=== PATIENT | male | born 1935 | race Hispanic/Latino ===

== ENCOUNTER → 2016-02-26 | Outpatient (REF) | payer OTHER ==
[2016-02-26 09:52] LABS: ALBUMIN 3.4 GM/DL (3.2-5.2); ALBUMIN/GLOBULIN RATIO 1.26 (1.00-1.93); BILIRUBIN,TOTAL 0.4 MG/DL (0.2-1.0); CALCIUM LEVEL 8.7 MG/DL (8.8-10.2); CREATININE FOR GFR 1.27 MG/DL (0.70-1.30); GLOMERULAR FILTRATION RATE 58.4 (>42); TOTAL PROTEIN 6.1 GM/DL (6.4-8.2)
== END ==
LOC: M SFHCPLAZ 08:11
PROVIDERS: ATTEND Physician Assistant Medical
DX: N18.3 Chronic kidney disease, stage 3 (moderate) (principal); R73.01 Impaired fasting glucose; R97.20 Elevated prostate specific antigen [PSA]
CPT/HCPCS: 36415; 80053; 82306; 83036; 83970; G0103; G0463

== ENCOUNTER → 2016-06-30 | Outpatient (REF) | payer OTHER | LOC: M SFHCPLAZ 16:37 | PROVIDERS: ATTEND Family Medicine | DX: N18.3 Chronic kidney disease, stage 3 (moderate) (principal); R73.01 Impaired fasting glucose; Z53.9 Procedure and treatment not carried out, unspecified reason ==

== ENCOUNTER → 2016-07-01 | Outpatient (CLI) | payer OTHER ==
[2016-07-01 09:17] LABS: BASO % 0.6 % (0.0-1.0); EOS # 0.3 K/mm3 (0.0-0.50); EOS % 5.2 % (0.0-3.0); LARGE UNSTAINED CELL # 0.1 K/mm3 (0.0-0.4); LARGE UNSTAINED CELL % 2.7 % (0.0-4.0); LYMPH # 1.5 K/mm3 (1.5-4.5); LYMPH % 29.6 % (24.0-44.0); MEAN CORPUSCULAR HEMOGLOBIN 28.8 pg (27.0-33.0); MEAN CORPUSCULAR HGB CONC 33.1 g/dl (32.0-36.5); MEAN CORPUSCULAR VOLUME 86.9 fl (80.0-96.0); MONO # 0.4 K/mm3 (0.0-0.8); MONO % 7.2 % (0.0-5.0); NEUTROPHILS # 2.7 K/mm3 (1.8-7.7); NEUTROPHILS % 54.6 % (36.0-66.0); PLATELET COUNT, AUTOMATED 159 k/mm3 (150-450); RED CELL DISTRIBUTION WIDTH 13.4 % (11.5-14.5); WHITE BLOOD COUNT 4.9 K/mm3 (4.0-10.0)
[2016-07-01 09:57] LABS: ALBUMIN 3.6 GM/DL (3.2-5.2); ALBUMIN/GLOBULIN RATIO 1.33 (1.00-1.93); BILIRUBIN,TOTAL 0.6 MG/DL (0.2-1.0); CALCIUM LEVEL 8.6 MG/DL (8.8-10.2); CREATININE FOR GFR 1.24 MG/DL (0.70-1.30); GLOMERULAR FILTRATION RATE 59.9 (>42); PERCENT SATURATION 29.8 % (19.7-37.4); POTASSIUM SERUM 4.3 MEQ/L (3.5-5.1); TOTAL PROTEIN 6.3 GM/DL (6.4-8.2)
== END ==
LOC: M WUC 08:08
PROVIDERS: ATTEND Family Medicine
DX: N18.3 Chronic kidney disease, stage 3 (moderate) (principal); R73.01 Impaired fasting glucose

== ENCOUNTER → 2016-12-03 | Outpatient (REF) | payer OTHER ==
[2016-12-03 15:48] LABS: BASO % 0.7 % (0.0-1.0); EOS # 0.2 10^3/uL (0.0-0.50); EOS % 3.8 % (0.0-3.0); IMMATURE GRANULOCYTE % 0.3 % (0-0); LYMPH # 1.6 10^3/uL (1.5-4.5); LYMPH % 27.4 % (24.0-44.0); MEAN CORPUSCULAR HEMOGLOBIN 28.7 pg (27.0-33.0); MEAN CORPUSCULAR HGB CONC 33.2 g/dl (32.0-36.5); MEAN CORPUSCULAR VOLUME 86.5 fl (80.0-96.0); MONO # 0.6 10^3/uL (0.0-0.8); MONO % 9.2 % (0.0-5.0); NEUTROPHILS # 3.5 10^3/uL (1.8-7.7); NEUTROPHILS % 58.6 % (36.0-66.0); PLATELET COUNT, AUTOMATED 187 10^3/uL (150-450); RED CELL DISTRIBUTION WIDTH 13.9 % (11.5-14.5)
[2016-12-03 15:54] LABS: ALBUMIN 3.7 GM/DL (3.2-5.2); ALBUMIN/GLOBULIN RATIO 1.54 (1.00-1.93); ALKALINE PHOSPHATASE 47 U/L (45-117); ALT/SGPT 16 U/L (12-78); ANION GAP 7 MEQ/L (8-16); AST/SGOT 9 U/L (15-37); BILIRUBIN,TOTAL 0.4 MG/DL (0.2-1.0); BLOOD UREA NITROGEN 15 MG/DL (7-18); CALCIUM LEVEL 9.1 MG/DL (8.8-10.2); CARBON DIOXIDE LEVEL 30 MEQ/L (21-32); CHLORIDE LEVEL 105 MEQ/L (98-107); CREATININE FOR GFR 1.23 MG/DL (0.70-1.30); GLOMERULAR FILTRATION RATE > 60.0 (>42); GLUCOSE, FASTING 91 MG/DL (83-110); SODIUM LEVEL 142 MEQ/L (136-145); TOTAL PROTEIN 6.1 GM/DL (6.4-8.2)
== END ==
LOC: M SFHCPLAZ 14:37
PROVIDERS: ATTEND Family Medicine
DX: N18.3 Chronic kidney disease, stage 3 (moderate) (principal); R73.01 Impaired fasting glucose; R97.20 Elevated prostate specific antigen [PSA]
CPT/HCPCS: 36415; 80053; 81001; 82043; 83036; 85025; G0103

== ENCOUNTER → 2017-05-13 | Outpatient (REF) | payer OTHER ==
[2017-05-13 15:45] LABS: BASO % 0.6 % (0.0-1.0); EOS # 0.3 10^3/uL (0.0-0.50); HEMATOCRIT 40.9 % (42.0-52.0); HEMOGLOBIN 13.2 g/dl (13.5-17.5); IMMATURE GRANULOCYTE % 0.5 % (0-3.0); LYMPH # 1.7 10^3/uL (1.5-4.5); LYMPH % 26.7 % (24.0-44.0); MEAN CORPUSCULAR HEMOGLOBIN 28.1 pg (27.0-33.0); MEAN CORPUSCULAR HGB CONC 32.3 g/dl (32.0-36.5); MONO # 0.7 10^3/uL (0.0-0.8); MONO % 10.5 % (0.0-5.0); NEUTROPHILS # 3.7 10^3/uL (1.8-7.7); NEUTROPHILS % 57.7 % (36.0-66.0); PLATELET COUNT, AUTOMATED 203 10^3/uL (150-450); RETICULOCYTE # 47.9 10^9/L (17-77); WHITE BLOOD COUNT 6.5 10^3/uL (4.0-10.0)
[2017-05-13 15:46] LABS: HEMATOCRIT 40.9 % (42.0-52.0)
[2017-05-13 16:14] LABS: VITAMIN B12 LEVEL 480 PG/ML (247-911)
[2017-05-13 16:17] LABS: ALBUMIN 3.7 GM/DL (3.2-5.2); ALBUMIN/GLOBULIN RATIO 1.37 (1.00-1.93); ALKALINE PHOSPHATASE 55 U/L (45-117); ALT/SGPT 15 U/L (12-78); ANION GAP 7 MEQ/L (8-16); AST/SGOT 13 U/L (7-37); BILIRUBIN,TOTAL 0.4 MG/DL (0.2-1.0); BLOOD UREA NITROGEN 20 MG/DL (7-18); CALCIUM LEVEL 8.8 MG/DL (8.8-10.2); CARBON DIOXIDE LEVEL 30 MEQ/L (21-32); CHLORIDE LEVEL 105 MEQ/L (98-107); CREATININE FOR GFR 1.23 MG/DL (0.70-1.30); FERRITIN 124 NG/ML (26-388); FREE T4 1.01 NG/DL (0.76-1.46); GLOMERULAR FILTRATION RATE > 60.0 (>42); GLUCOSE, FASTING 89 MG/DL (70-100); MAGNESIUM LEVEL 2.2 MG/DL (1.8-2.4); SODIUM LEVEL 142 MEQ/L (136-145); THYROID STIMULATING HORMONE 0.699 uIU/ML (0.358-3.740); TOTAL PROTEIN 6.4 GM/DL (6.4-8.2)
[2017-05-14 13:38] LABS: RBC FOLATE 462.1 NG/ML (280-791)
[2017-05-17 14:24] LABS: ALBUMIN 3.97 GM/DL (3.29-5.55); ALBUMIN % 62.1 % (55.8-66.1); ALPHA-1-GLOBULIN % 4.3 % (2.9-4.9); ALPHA-1-GLOBULINS 0.28 GM/DL (0.17-0.41); ALPHA-2-GLOBULINS 0.74 GM/DL (0.42-0.99); ALPHA-2-GLOBULINS % 11.6 % (7.1-11.8); BETA-1-GLOBULINS 0.36 GM/DL (0.28-0.60); BETA-1-GLOBULINS % 5.7 % (4.7-7.2); BETA-2-GLOBULINS % 4.7 % (3.2-6.5); GAMMA GLOBULIN % 11.6 % (11.1-18.8); GAMMA GLOBULINS 0.74 GM/DL (0.65-1.58)
== END ==
LOC: M SFHCPLAZ 11:22
DX: E53.8 Deficiency of other specified B group vitamins (principal); I12.9 Hypertensive chronic kidney disease with stage 1 through stage 4 chronic kidney disease, or unspecified chronic kidney disease; N18.3 Chronic kidney disease, stage 3 (moderate)
CPT/HCPCS: 83735

== ENCOUNTER → 2017-07-02 | Outpatient (CLI) | payer OTHER | LOC: M RAD 14:50 | DX: M19.072 Primary osteoarthritis, left ankle and foot (principal); M85.672 Other cyst of bone, left ankle and foot; M25.772 Osteophyte, left ankle; S92.354D Nondisplaced fracture of fifth metatarsal bone, right foot, subsequent encounter for fracture with routine healing; M79.672 Pain in left foot | CPT/HCPCS: 73630 ==

== ENCOUNTER → 2017-07-26 | Outpatient (CLI) | payer OTHER | LOC: M RAD 11:10 | DX: M79.671 Pain in right foot (principal) | CPT/HCPCS: 73630 ==

== ENCOUNTER → 2017-09-16 | Outpatient (REF) | payer OTHER ==
[2017-09-16 13:50] LABS: BASO % 0.6 % (0.0-1.0); EOS # 0.2 10^3/uL (0.0-0.50); EOS % 2.7 % (0.0-3.0); HEMATOCRIT 41.6 % (42.0-52.0); HEMOGLOBIN 13.7 g/dl (13.5-17.5); IMMATURE GRANULOCYTE % 0.1 % (0-3.0); LYMPH # 1.8 10^3/uL (1.5-4.5); LYMPH % 25.8 % (24.0-44.0); MEAN CORPUSCULAR HEMOGLOBIN 28.2 pg (27.0-33.0); MEAN CORPUSCULAR HGB CONC 32.9 g/dl (32.0-36.5); MEAN CORPUSCULAR VOLUME 85.8 fl (80.0-96.0); MONO # 0.7 10^3/uL (0.0-0.8); MONO % 9.6 % (0.0-5.0); NEUTROPHILS # 4.3 10^3/uL (1.8-7.7); NEUTROPHILS % 61.2 % (36.0-66.0); PLATELET COUNT, AUTOMATED 224 10^3/uL (150-450); RED BLOOD COUNT 4.85 10^6/uL (4.30-6.10); RED CELL DISTRIBUTION WIDTH 13.7 % (11.5-14.5); WHITE BLOOD COUNT 7.1 10^3/uL (4.0-10.0)
[2017-09-16 14:45] LABS: ERYTHROCYTE SEDIMENTATION RATE 7 mm/hr (0-20)
[2017-09-16 14:50] LABS: ALBUMIN 3.8 GM/DL (3.2-5.2); ALBUMIN/GLOBULIN RATIO 1.27 (1.00-1.93); ALKALINE PHOSPHATASE 52 U/L (45-117); ALT/SGPT 18 U/L (12-78); ANION GAP 9 MEQ/L (8-16); AST/SGOT 15 U/L (7-37); BILIRUBIN,TOTAL 0.6 MG/DL (0.2-1.0); BLOOD UREA NITROGEN 18 MG/DL (7-18); C REACTIVE PROTEIN QUANTITATIV < 0.30 MG/DL (0.00-0.30); CALCIUM LEVEL 8.9 MG/DL (8.8-10.2); CARBON DIOXIDE LEVEL 29 MEQ/L (21-32); CHLORIDE LEVEL 104 MEQ/L (98-107); CHOLESTEROL LEVEL 166 MG/DL (<200); CHOLESTEROL RISK RATIO 3.531 (<5); GLOMERULAR FILTRATION RATE 56.5 (>35); GLUCOSE, FASTING 87 MG/DL (70-100); HDL CHOLESTEROL 47 MG/DL (>40); NON-HDL-C 119 MG/DL; POTASSIUM SERUM 3.9 MEQ/L (3.5-5.1); SODIUM LEVEL 142 MEQ/L (136-145); TOTAL PROTEIN 6.8 GM/DL (6.4-8.2); TRIGLYCERIDES LEVEL 115 MG/DL (<150)
[2017-09-16 15:36] LABS: ESTIMATED AVERAGE GLUCOSE 126 MG/DL (60-110)
[2017-09-18 00:06] LABS: INSULIN LEVEL 6.9 uIU/mL (2.6-24.9); PSA FREE 1.15 ng/mL; PSA TOTAL 4.1 ng/mL (0.0-4.0)
== END ==
LOC: M SFHCPLAZ 11:14
DX: R97.20 Elevated prostate specific antigen [PSA] (principal); R73.01 Impaired fasting glucose; N18.3 Chronic kidney disease, stage 3 (moderate); M21.372 Foot drop, left foot; E78.2 Mixed hyperlipidemia
CPT/HCPCS: 83525

== ENCOUNTER → 2017-09-18 | Outpatient (CLI) | payer OTHER | LOC: M RAD 12:33 | DX: M21.372 Foot drop, left foot (principal); M51.26 Other intervertebral disc displacement, lumbar region; M51.27 Other intervertebral disc displacement, lumbosacral region | CPT/HCPCS: 72148 ==

== ENCOUNTER → 2017-10-25 | Outpatient (CLI) | payer OTHER | LOC: M RAD 07:49 | DX: I63.9 Cerebral infarction, unspecified (principal) | CPT/HCPCS: 70551 ==

== ENCOUNTER 2017-11-26 09:51 | Inpatient (IN) | payer OTHER ==
[2017-11-26] MEDS: NS 1,000 ML IV ×3 (10:38→18:42)
[2017-11-26 10:42] LABS: BASO % 0.3 % (0.0-1.0); EOS # 0.1 10^3/uL (0.0-0.50); EOS % 0.8 % (0.0-3.0); HEMATOCRIT 41.7 % (42.0-52.0); HEMOGLOBIN 13.5 g/dl (13.5-17.5); IMMATURE GRANULOCYTE % 0.4 % (0-3.0); LYMPH # 1.1 10^3/uL (1.5-4.5); LYMPH % 9.7 % (24.0-44.0); MEAN CORPUSCULAR HEMOGLOBIN 28.2 pg (27.0-33.0); MEAN CORPUSCULAR HGB CONC 32.4 g/dl (32.0-36.5); MEAN CORPUSCULAR VOLUME 87.2 fl (80.0-96.0); MONO # 1.1 10^3/uL (0.0-0.8); MONO % 9.8 % (0.0-5.0); NEUTROPHILS # 8.7 10^3/uL (1.8-7.7); PLATELET COUNT, AUTOMATED 216 10^3/uL (150-450); RED BLOOD COUNT 4.78 10^6/uL (4.30-6.10); RED CELL DISTRIBUTION WIDTH 13.5 % (11.5-14.5)
[2017-11-26 11:09] LABS: LACTIC ACID SEPSIS PROTOCOL 0.8 MMOL/L (0.4-2.0)
[2017-11-26 11:16] LABS: ALBUMIN 3.5 GM/DL (3.2-5.2); ALKALINE PHOSPHATASE 73 U/L (45-117); ALT/SGPT 22 U/L (12-78); ANION GAP 10 MEQ/L (8-16); AST/SGOT 17 U/L (7-37); BILIRUBIN,DIRECT 0.2 MG/DL (0.0-0.2); BILIRUBIN,TOTAL 0.7 MG/DL (0.2-1.0); BLOOD UREA NITROGEN 15 MG/DL (7-18); C REACTIVE PROTEIN QUANTITATIV 6.36 MG/DL (0.00-0.30); CALCIUM LEVEL 8.7 MG/DL (8.8-10.2); CARBON DIOXIDE LEVEL 26 MEQ/L (21-32); CHLORIDE LEVEL 104 MEQ/L (98-107); CREATININE FOR GFR 1.24 MG/DL (0.70-1.30); GLOMERULAR FILTRATION RATE 59.7 (>35); GLUCOSE, FASTING 108 MG/DL (70-100); LIPASE 90 U/L (73-393); POTASSIUM SERUM 3.7 MEQ/L (3.5-5.1); SODIUM LEVEL 140 MEQ/L (136-145); THYROID STIMULATING HORMONE 0.314 uIU/ML (0.358-3.740)
[2017-11-26 11:19] LABS: ERYTHROCYTE SEDIMENTATION RATE 18 mm/hr (0-20)
[2017-11-26] MEDS ORDERED: ISOVUE-370 76% 100ML VIAL (Q9967) As Ordered (11:29)
[2017-11-26] MEDS: LABETALOL HCL 100 MG/20 ML VIAL IV (12:20)
[2017-11-26] MEDS ORDERED: ONDANSETRON 4MG/2ML VIAL (J2405) IV (16:45)
[2017-11-26 16:54] LABS: FREE T4 1.28 NG/DL (0.76-1.46)
[2017-11-26 18:04] LABS: CPK CREATINE PHOSPHOKINASE 119 U/L (39-308); MB/CK RELATIVE INDEX 2.02 (< OR =4); TROPONIN I < 0.02 NG/ML (< 0.10)
[2017-11-26] MEDS: ACETAMINOPHEN 650 MG SUPP PR (19:43)
[2017-11-26] MEDS: PANTOPRAZOLE 40MG INJ (PROTONIX) (C9113) IV (21:29)
[2017-11-26] MEDS: HEPARIN SOD (PORCINE) 5000 UNITS/ML VIAL SC (21:29)
[2017-11-27] MEDS ORDERED: SLF 3 ML SYR IV (00:15)
[2017-11-27 01:32] LABS: CPK CREATINE PHOSPHOKINASE 133 U/L (39-308); TROPONIN I < 0.02 NG/ML (< 0.10)
[2017-11-27] MEDS: SLF 3 ML SYR IV ×3 (05:36→21:19)
[2017-11-27] MEDS: HEPARIN SOD (PORCINE) 5000 UNITS/ML VIAL SC ×3 (05:37→20:46)
[2017-11-27 08:12] LABS: HEMATOCRIT 38.9 % (42.0-52.0); HEMOGLOBIN 12.6 g/dl (13.5-17.5); MEAN CORPUSCULAR HEMOGLOBIN 28.6 pg (27.0-33.0); MEAN CORPUSCULAR HGB CONC 32.4 g/dl (32.0-36.5); MEAN CORPUSCULAR VOLUME 88.2 fl (80.0-96.0); PLATELET COUNT, AUTOMATED 206 10^3/uL (150-450); RED BLOOD COUNT 4.41 10^6/uL (4.30-6.10); RED CELL DISTRIBUTION WIDTH 13.7 % (11.5-14.5); WHITE BLOOD COUNT 11.5 10^3/uL (4.0-10.0)
[2017-11-27] MEDS: ASPIRIN 300 MG SUPP PR (08:37)
[2017-11-27 08:40] LABS: CPK CREATINE PHOSPHOKINASE 178 U/L (39-308); TROPONIN I < 0.02 NG/ML (< 0.10)
[2017-11-27 08:45] LABS: ANION GAP 8 MEQ/L (8-16); BLOOD UREA NITROGEN 15 MG/DL (7-18); CALCIUM LEVEL 8.9 MG/DL (8.8-10.2); CARBON DIOXIDE LEVEL 27 MEQ/L (21-32); CHLORIDE LEVEL 108 MEQ/L (98-107); CREATININE FOR GFR 1.02 MG/DL (0.70-1.30); FREE THYROXINE INDEX 2.7 % (1.4-3.8); GLOMERULAR FILTRATION RATE > 60.0 (>35); GLUCOSE, FASTING 94 MG/DL (70-100); POTASSIUM SERUM 4.1 MEQ/L (3.5-5.1); SODIUM LEVEL 143 MEQ/L (136-145); T UPTAKE 33 % (33-40); THYROID STIMULATING HORMONE 0.259 uIU/ML (0.358-3.740); THYROXINE (T4) 8.2 UG/DL (4.5-12.0)
[2017-11-27] MEDS: D5W/0.45% SODIUM CHLORIDE 1,000 ML IV (13:03)
[2017-11-27] MEDS: KCL 20MEQ IN D5/0.45NS 1000ML 1,000 ML IV ×2 (13:16→21:45)
[2017-11-27 15:10] LABS: APPEARANCE, URINE HAZY (CLEAR); BACTERIA, URINE AUTO NEGATIVE (NEGATIVE); BILIRUBIN, URINE AUTO NEGATIVE (NEGATIVE); BLOOD, URINE BLOOD 1+ (NEGATIVE); COLOR, URINE YELLOW (YELLOW); GLUCOSE, URINE (UA) AUTO NEGATIVE (NEGATIVE); KETONE, URINE AUTO 1+ mg/dL (NEGATIVE); LEUKOCYTE ESTERASE, URINE AUTO NEGATIVE (NEGATIVE); MUCUS, URINE LARGE (NEGATIVE); NITRITE, URINE AUTO NEGATIVE (NEGATIVE); PROTEIN, URINE AUTO 1+ mg/dL (NEGATIVE); RBC, URINE AUTO 7 /HPF (0-3); SPECIFIC GRAVITY URINE AUTO 1.028 (1.002-1.035); SQUAMOUS EPITHELIAL CELL UR AU 0 /HPF (0-6); WBC, URINE AUTO 2 /HPF (0-3)
[2017-11-27] MEDS: PANTOPRAZOLE 40MG INJ (PROTONIX) (C9113) IV (20:46)
[2017-11-28 04:56] LABS: HEMATOCRIT 37.6 % (42.0-52.0); HEMOGLOBIN 12.2 g/dl (13.5-17.5); MEAN CORPUSCULAR HEMOGLOBIN 28.1 pg (27.0-33.0); MEAN CORPUSCULAR HGB CONC 32.4 g/dl (32.0-36.5); MEAN CORPUSCULAR VOLUME 86.6 fl (80.0-96.0); PLATELET COUNT, AUTOMATED 208 10^3/uL (150-450); RED BLOOD COUNT 4.34 10^6/uL (4.30-6.10); RED CELL DISTRIBUTION WIDTH 13.5 % (11.5-14.5); WHITE BLOOD COUNT 9.7 10^3/uL (4.0-10.0)
[2017-11-28] MEDS: SLF 3 ML SYR IV ×3 (05:09→21:06)
[2017-11-28] MEDS: HEPARIN SOD (PORCINE) 5000 UNITS/ML VIAL SC ×3 (05:18→20:03)
[2017-11-28 05:20] LABS: ANION GAP 6 MEQ/L (8-16); BLOOD UREA NITROGEN 14 MG/DL (7-18); CALCIUM LEVEL 8.4 MG/DL (8.8-10.2); CARBON DIOXIDE LEVEL 29 MEQ/L (21-32); CHLORIDE LEVEL 107 MEQ/L (98-107); CREATININE FOR GFR 0.96 MG/DL (0.70-1.30); GLOMERULAR FILTRATION RATE > 60.0 (>35); GLUCOSE, FASTING 127 MG/DL (70-100); POTASSIUM SERUM 4.3 MEQ/L (3.5-5.1); SODIUM LEVEL 142 MEQ/L (136-145)
[2017-11-28] MEDS: KCL 20MEQ IN D5/0.45NS 1000ML 1,000 ML IV ×2 (06:02→14:29)
[2017-11-28] MEDS: ASPIRIN 300 MG SUPP PR (08:30)
[2017-11-28] MEDS: PYRIDOSTIGMINE INJ 10 MG/2 ML AMP IM ×3 (12:45→23:51)
[2017-11-28] MEDS: methylPREDNISolone INJ 125 MG/2 ML VIAL (J2930) IV (14:28)
[2017-11-28] MEDS: PANTOPRAZOLE 40MG INJ (PROTONIX) (C9113) IV (20:02)
[2017-11-29 04:49] LABS: HEMATOCRIT 38.9 % (42.0-52.0); HEMOGLOBIN 12.7 g/dl (13.5-17.5); MEAN CORPUSCULAR HGB CONC 32.6 g/dl (32.0-36.5); MEAN CORPUSCULAR VOLUME 85.7 fl (80.0-96.0); PLATELET COUNT, AUTOMATED 265 10^3/uL (150-450); RED BLOOD COUNT 4.54 10^6/uL (4.30-6.10); RED CELL DISTRIBUTION WIDTH 13.1 % (11.5-14.5); WHITE BLOOD COUNT 8.1 10^3/uL (4.0-10.0)
[2017-11-29] MEDS: SLF 3 ML SYR IV ×3 (05:04→21:15)
[2017-11-29 05:15] LABS: ANION GAP 6 MEQ/L (8-16); BLOOD UREA NITROGEN 16 MG/DL (7-18); CARBON DIOXIDE LEVEL 27 MEQ/L (21-32); CHLORIDE LEVEL 105 MEQ/L (98-107); CREATININE FOR GFR 0.99 MG/DL (0.70-1.30); GLOMERULAR FILTRATION RATE > 60.0 (>35); GLUCOSE, FASTING 134 MG/DL (70-100); POTASSIUM SERUM 4.2 MEQ/L (3.5-5.1); SODIUM LEVEL 138 MEQ/L (136-145)
[2017-11-29] MEDS: HEPARIN SOD (PORCINE) 5000 UNITS/ML VIAL SC ×3 (05:33→21:15)
[2017-11-29] MEDS: PYRIDOSTIGMINE INJ 10 MG/2 ML AMP IM ×4 (05:33→23:54)
[2017-11-29] MEDS: KCL 20MEQ IN D5/0.45NS 1000ML 1,000 ML IV ×2 (05:34→21:34)
[2017-11-29] MEDS: ASPIRIN 300 MG SUPP PR (09:26)
[2017-11-29] MEDS: methylPREDNISolone INJ 125 MG/2 ML VIAL (J2930) IV (09:26)
[2017-11-29] MEDS ORDERED: E-Z-PAQUE 96% w/w SUSP 176GM BTL As Ordered (15:29)
[2017-11-29] MEDS ORDERED: E-Z-HD 98% w/w 340GM SUSP BTL As Ordered (15:30)
[2017-11-29] MEDS ORDERED: E-Z-GAS II EFFERVESCENT PACKET (SODIUM BICARB./CITRIC ACID/SIMETHICONE) As Ordered (15:30)
[2017-11-29] MEDS: PANTOPRAZOLE 40MG INJ (PROTONIX) (C9113) IV (19:40)
[2017-11-29] MEDS: chlorproMAZINE 25 MG TAB (Q0161) PO (19:40)
[2017-11-30] MEDS: SLF 3 ML SYR IV ×3 (05:39→22:55)
[2017-11-30] MEDS: PYRIDOSTIGMINE INJ 10 MG/2 ML AMP IM (05:52)
[2017-11-30] MEDS: HEPARIN SOD (PORCINE) 5000 UNITS/ML VIAL SC ×3 (05:52→22:55)
[2017-11-30 06:02] LABS: HEMATOCRIT 40.2 % (42.0-52.0); HEMOGLOBIN 13.2 g/dl (13.5-17.5); MEAN CORPUSCULAR HEMOGLOBIN 28.4 pg (27.0-33.0); MEAN CORPUSCULAR HGB CONC 32.8 g/dl (32.0-36.5); MEAN CORPUSCULAR VOLUME 86.6 fl (80.0-96.0); PLATELET COUNT, AUTOMATED 269 10^3/uL (150-450); RED BLOOD COUNT 4.64 10^6/uL (4.30-6.10); WHITE BLOOD COUNT 10.3 10^3/uL (4.0-10.0)
[2017-11-30 06:22] LABS: ANION GAP 4 MEQ/L (8-16); BLOOD UREA NITROGEN 18 MG/DL (7-18); CALCIUM LEVEL 9.3 MG/DL (8.8-10.2); CARBON DIOXIDE LEVEL 31 MEQ/L (21-32); CHLORIDE LEVEL 105 MEQ/L (98-107); CREATININE FOR GFR 0.97 MG/DL (0.70-1.30); GLOMERULAR FILTRATION RATE > 60.0 (>35); GLUCOSE, FASTING 101 MG/DL (70-100); POTASSIUM SERUM 3.9 MEQ/L (3.5-5.1); SODIUM LEVEL 140 MEQ/L (136-145)
[2017-11-30] MEDS: KCL 20MEQ IN D5/0.45NS 1000ML 1,000 ML IV (07:23)
[2017-11-30] MEDS: methylPREDNISolone INJ 125 MG/2 ML VIAL (J2930) IV (08:30)
[2017-11-30] MEDS: ASPIRIN 300 MG SUPP PR (08:30)
[2017-11-30] MEDS: chlorproMAZINE 25 MG TAB (Q0161) PO ×2 (08:30→20:34)
[2017-11-30] MEDS: predniSONE 20 MG TAB PO (12:41)
[2017-11-30] MEDS: PYRIDOSTIGMINE 60 MG TAB PO ×3 (12:41→23:39)
[2017-11-30] MEDS: PANTOPRAZOLE 40MG INJ (PROTONIX) (C9113) IV (20:28)
[2017-12-01] MEDS: PYRIDOSTIGMINE 60 MG TAB PO ×4 (05:31→23:53)
[2017-12-01] MEDS: SLF 3 ML SYR IV ×3 (05:31→21:05)
[2017-12-01] MEDS: HEPARIN SOD (PORCINE) 5000 UNITS/ML VIAL SC ×3 (05:31→21:05)
[2017-12-01 06:06] LABS: HEMATOCRIT 38.9 % (42.0-52.0); HEMOGLOBIN 12.9 g/dl (13.5-17.5); MEAN CORPUSCULAR HEMOGLOBIN 28.4 pg (27.0-33.0); MEAN CORPUSCULAR HGB CONC 33.2 g/dl (32.0-36.5); MEAN CORPUSCULAR VOLUME 85.5 fl (80.0-96.0); PLATELET COUNT, AUTOMATED 295 10^3/uL (150-450); RED BLOOD COUNT 4.55 10^6/uL (4.30-6.10); RED CELL DISTRIBUTION WIDTH 13.1 % (11.5-14.5); WHITE BLOOD COUNT 10.8 10^3/uL (4.0-10.0)
[2017-12-01 06:25] LABS: ANION GAP 7 MEQ/L (8-16); BLOOD UREA NITROGEN 22 MG/DL (7-18); CALCIUM LEVEL 9.3 MG/DL (8.8-10.2); CARBON DIOXIDE LEVEL 28 MEQ/L (21-32); CHLORIDE LEVEL 104 MEQ/L (98-107); CREATININE FOR GFR 0.99 MG/DL (0.70-1.30); GLOMERULAR FILTRATION RATE > 60.0 (>35); GLUCOSE, FASTING 101 MG/DL (70-100); POTASSIUM SERUM 3.7 MEQ/L (3.5-5.1); SODIUM LEVEL 139 MEQ/L (136-145)
[2017-12-01] MEDS: ASPIRIN 300 MG SUPP PR (07:58)
[2017-12-01] MEDS: predniSONE 20 MG TAB PO (07:58)
[2017-12-01] MEDS: chlorproMAZINE 25 MG TAB (Q0161) PO ×2 (07:58→21:05)
[2017-12-01] MEDS: FOLIC ACID 1 MG TAB PO (11:05)
[2017-12-01] MEDS: IRBESARTAN 150 MG TAB PO (13:14)
[2017-12-01] MEDS ORDERED: VARIBAR PUDDING 40% w/v 230ML TUBE As Ordered (14:00)
[2017-12-01] MEDS ORDERED: E-Z-PAQUE 96% w/w SUSP 176GM BTL As Ordered (14:00)
[2017-12-01] MEDS ORDERED: VARIBAR NECTAR 40% w/v 240ML SUSP BTL As Ordered (14:00)
[2017-12-01] MEDS: PANTOPRAZOLE 40MG INJ (PROTONIX) (C9113) IV (21:05)
[2017-12-02] MEDS: HEPARIN SOD (PORCINE) 5000 UNITS/ML VIAL SC (05:21)
[2017-12-02] MEDS: PYRIDOSTIGMINE 60 MG TAB PO ×2 (05:21→12:16)
[2017-12-02] MEDS: SLF 3 ML SYR IV (05:21)
[2017-12-02 07:02] LABS: HEMATOCRIT 39.9 % (42.0-52.0); MEAN CORPUSCULAR HEMOGLOBIN 28.1 pg (27.0-33.0); MEAN CORPUSCULAR HGB CONC 32.6 g/dl (32.0-36.5); MEAN CORPUSCULAR VOLUME 86.4 fl (80.0-96.0); PLATELET COUNT, AUTOMATED 296 10^3/uL (150-450); RED BLOOD COUNT 4.62 10^6/uL (4.30-6.10); RED CELL DISTRIBUTION WIDTH 13.2 % (11.5-14.5); WHITE BLOOD COUNT 11.2 10^3/uL (4.0-10.0)
[2017-12-02 07:25] LABS: ANION GAP 4 MEQ/L (8-16); BLOOD UREA NITROGEN 20 MG/DL (7-18); CALCIUM LEVEL 8.8 MG/DL (8.8-10.2); CARBON DIOXIDE LEVEL 32 MEQ/L (21-32); CHLORIDE LEVEL 104 MEQ/L (98-107); CREATININE FOR GFR 1.12 MG/DL (0.70-1.30); GLOMERULAR FILTRATION RATE > 60.0 (>35); GLUCOSE, FASTING 95 MG/DL (70-100); POTASSIUM SERUM 3.6 MEQ/L (3.5-5.1); SODIUM LEVEL 140 MEQ/L (136-145)
[2017-12-02] MEDS: chlorproMAZINE 25 MG TAB (Q0161) PO (09:25)
[2017-12-02] MEDS: ASPIRIN 81 MG ENTERIC TAB PO (09:25)
[2017-12-02] MEDS: predniSONE 20 MG TAB PO (09:25)
[2017-12-02] MEDS: METHOTREXATE 2.5 MG TAB (J8610 PER 2.5MG) PO (09:26)
[2017-12-02] MEDS: FOLIC ACID 1 MG TAB PO (09:26)
[2017-12-02] MEDS: IRBESARTAN 150 MG TAB PO (09:26)
[2017-12-03 00:07] LABS: ACETYLCHOLINE RCPTOR BINDING A < 0.03 nmol/L (0.00-0.24)
[2017-12-03 14:47] LABS: COPPER PLASMA 122 ug/dL (72-166); Lyme Disease IgG/IgM Antibodie <0.91 ISR (0.00-0.90); Lyme Disease IgM Ab Quantitati <0.80 index (0.00-0.79); STRIATIONAL ANTIBODIES Negative (Neg:<1:40); VGCC ANTIBODY Negative (Negative); VITAMIN B1 LEVEL WHOLE BLOOD 106.9 nmol/L (66.5-200.0)
[2017-12-07] MEDS ORDERED: METHOTREXATE 2.5 MG TAB (J8610 PER 2.5MG) PO (09:00)
== END 2017-12-02 15:18 | disposition home or self-care (01) | DRG 57 ==
LOC: M ED 09:51 → M ED INP 16:32 → M MS4PR 12-01 12:25 → M PCU 18:22
PROC: 0CJS8ZZ Inspection of Larynx, Via Natural or Artificial Opening Endoscopic (ICD-10-PCS; principal; 2017-11-26)
DX: G70.00 Myasthenia gravis without (acute) exacerbation (principal); I12.9 Hypertensive chronic kidney disease with stage 1 through stage 4 chronic kidney disease, or unspecified chronic kidney disease; N18.3 Chronic kidney disease, stage 3 (moderate); N40.0 Benign prostatic hyperplasia without lower urinary tract symptoms; M19.90 Unspecified osteoarthritis, unspecified site; I69.322 Dysarthria following cerebral infarction; I69.391 Dysphagia following cerebral infarction; R49.0 Dysphonia; R06.6 Hiccough; H02.403 Unspecified ptosis of bilateral eyelids; R63.4 Abnormal weight loss; G47.00 Insomnia, unspecified; G71.09 Other specified muscular dystrophies; I69.315 Cognitive social or emotional deficit following cerebral infarction; I69.398 Other sequelae of cerebral infarction; R13.10 Dysphagia, unspecified; Z79.899 Other long term (current) drug therapy; Z88.5 Allergy status to narcotic agent; Z79.82 Long term (current) use of aspirin; Z88.0 Allergy status to penicillin

== ENCOUNTER 2018-01-22 23:37 | Emergency (ER) | payer OTHER ==
[2018-01-23] MEDS: IPRATROPIUM 0.5MG/ALBUTEROL 2.5MG INH SOL UD 3ML (DUONEB)(J7620) NEB (00:37)
[2018-01-23 00:53] LABS: BASO % 0.4 % (0.0-1.0); EOS # 0.2 10^3/uL (0.0-0.50); EOS % 2.9 % (0.0-3.0); HEMATOCRIT 38.4 % (42.0-52.0); HEMOGLOBIN 12.6 g/dl (13.5-17.5); IMMATURE GRANULOCYTE % 0.2 % (0-3.0); LYMPH # 1.9 10^3/uL (1.5-4.5); LYMPH % 23.3 % (24.0-44.0); MEAN CORPUSCULAR HEMOGLOBIN 28.8 pg (27.0-33.0); MEAN CORPUSCULAR HGB CONC 32.8 g/dl (32.0-36.5); MEAN CORPUSCULAR VOLUME 87.9 fl (80.0-96.0); MONO # 0.9 10^3/uL (0.0-0.8); MONO % 11.2 % (0.0-5.0); PLATELET COUNT, AUTOMATED 227 10^3/uL (150-450); RED BLOOD COUNT 4.37 10^6/uL (4.30-6.10); WHITE BLOOD COUNT 8.1 10^3/uL (4.0-10.0)
[2018-01-23 01:18] LABS: ANION GAP 6 MEQ/L (8-16); BLOOD UREA NITROGEN 22 MG/DL (7-18); CALCIUM LEVEL 8.3 MG/DL (8.8-10.2); CARBON DIOXIDE LEVEL 29 MEQ/L (21-32); CHLORIDE LEVEL 108 MEQ/L (98-107); CPK CREATINE PHOSPHOKINASE 110 U/L (39-308); CREATININE FOR GFR 1.19 MG/DL (0.70-1.30); GLOMERULAR FILTRATION RATE > 60.0 (>35); GLUCOSE, FASTING 87 MG/DL (70-100); MB/CK RELATIVE INDEX 4.27 (< OR =4); NT-PRO BNP 136 PG/ML (<450); POTASSIUM SERUM 3.6 MEQ/L (3.5-5.1); SODIUM LEVEL 143 MEQ/L (136-145); TROPONIN I 0.02 NG/ML (< 0.10)
== END 2018-01-23 02:52 | disposition home or self-care (01) ==
LOC: M ED 23:37
DX: R06.02 Shortness of breath (principal); I10 Essential (primary) hypertension; G47.30 Sleep apnea, unspecified; N18.6 End stage renal disease; G70.00 Myasthenia gravis without (acute) exacerbation; Z79.82 Long term (current) use of aspirin; Z79.899 Other long term (current) drug therapy; Z88.0 Allergy status to penicillin; Z88.8 Allergy status to other drugs, medicaments and biological substances
CPT/HCPCS: 71046

== ENCOUNTER → 2018-01-28 | Outpatient (CLI) | payer OTHER ==
[~2018-01-28] MED LIST: ASPI81TA85 PO; BIOT10TA2 PO; BISO10TA3 PO; CHLOR25TA PO; IRBE300T10 PO; LISI40TA PO; LUTE10TA PO; MEST60TA PO; MOTR200T PO; PRED20TA PO; TAMS1CAP17 PO; VITMTA PO
== END ==
LOC: M PT 13:23
PROVIDERS: ATTEND Nurse Practitioner Family
DX: Z74.09 Other reduced mobility (principal)
CPT/HCPCS: 97161; 97530; G8978; G8979

== ENCOUNTER → 2018-02-04 | Outpatient (REF) | payer OTHER ==
[2018-02-04 18:10] LABS: BASO % 0.4 % (0.0-1.0); EOS # 0.1 10^3/uL (0.0-0.50); EOS % 0.6 % (0.0-3.0); HEMATOCRIT 41.5 % (42.0-52.0); HEMOGLOBIN 13.4 g/dl (13.5-17.5); LYMPH # 1.5 10^3/uL (1.5-4.5); LYMPH % 18.5 % (24.0-44.0); MEAN CORPUSCULAR HEMOGLOBIN 28.6 pg (27.0-33.0); MEAN CORPUSCULAR HGB CONC 32.3 g/dl (32.0-36.5); MEAN CORPUSCULAR VOLUME 88.5 fl (80.0-96.0); MONO # 0.7 10^3/uL (0.0-0.8); MONO % 8.1 % (0.0-5.0); NEUTROPHILS # 5.8 10^3/uL (1.8-7.7); PLATELET COUNT, AUTOMATED 256 10^3/uL (150-450); RED BLOOD COUNT 4.69 10^6/uL (4.30-6.10); WHITE BLOOD COUNT 8.1 10^3/uL (4.0-10.0)
[2018-02-04 18:13] LABS: ALBUMIN 3.7 GM/DL (3.2-5.2); ALT/SGPT 27 U/L (12-78); BILIRUBIN,TOTAL 0.4 MG/DL (0.2-1.0); BLOOD UREA NITROGEN 19 MG/DL (7-18); CALCIUM LEVEL 9.3 MG/DL (8.8-10.2); CARBON DIOXIDE LEVEL 29 MEQ/L (21-32); CHLORIDE LEVEL 104 MEQ/L (98-107); CREATININE FOR GFR 1.21 MG/DL (0.70-1.30); GLOMERULAR FILTRATION RATE > 60.0 (>35); GLUCOSE, FASTING 100 MG/DL (70-100); POTASSIUM SERUM 4.3 MEQ/L (3.5-5.1); SODIUM LEVEL 140 MEQ/L (136-145); TOTAL PROTEIN 6.7 GM/DL (6.4-8.2)
[2018-02-04 18:22] LABS: PTH INTACT 90.2 PG/ML (18.5-88.0); TOTAL 25(OH) VITAMIN D 20.5 NG/ML (30.0-100.0)
[2018-02-04 18:23] LABS: VITAMIN B12 LEVEL 483 PG/ML (247-911)
== END ==
LOC: M SFHCPLAZ 15:43
PROVIDERS: ATTEND Family Medicine
DX: I10 Essential (primary) hypertension (principal); E55.9 Vitamin D deficiency, unspecified; R73.01 Impaired fasting glucose; E53.8 Deficiency of other specified B group vitamins
CPT/HCPCS: 36415; 80053; 82306; 82607; 83036; 83970; 85025; G0463

== ENCOUNTER → 2018-07-15 | Outpatient (REF) | payer MEDICARE ==
[2018-07-15 18:17] LABS: ALBUMIN 3.9 GM/DL (3.2-5.2); ALT/SGPT 19 U/L (12-78); BILIRUBIN,TOTAL 0.4 MG/DL (0.2-1.0); BLOOD UREA NITROGEN 21 MG/DL (7-18); CALCIUM LEVEL 9.6 MG/DL (8.8-10.2); CARBON DIOXIDE LEVEL 30 MEQ/L (21-32); CHLORIDE LEVEL 106 MEQ/L (98-107); CHOLESTEROL LEVEL 155 MG/DL (<200); CPK CREATINE PHOSPHOKINASE 112 U/L (39-308); CREATININE FOR GFR 1.13 MG/DL (0.70-1.30); GLOMERULAR FILTRATION RATE > 60.0 (>35); GLUCOSE, FASTING 90 MG/DL (70-100); HDL CHOLESTEROL 54 MG/DL (>40); LDL CHOLESTEROL 81 MG/DL (<100); NON-HDL-C 101 MG/DL; POTASSIUM SERUM 3.8 MEQ/L (3.5-5.1); SODIUM LEVEL 142 MEQ/L (136-145); TOTAL PROTEIN 6.4 GM/DL (6.4-8.2); TRIGLYCERIDES LEVEL 100 MG/DL (<150)
[2018-07-15 18:25] LABS: PTH INTACT 71.4 PG/ML (18.5-88.0); TOTAL 25(OH) VITAMIN D 29.7 NG/ML (30.0-100.0)
[2018-07-15 18:41] LABS: BASO % 0.7 % (0.0-1.0); EOS # 0.2 10^3/uL (0.0-0.50); EOS % 3.7 % (0.0-3.0); HEMATOCRIT 40.5 % (42.0-52.0); HEMOGLOBIN 12.9 g/dl (13.5-17.5); LYMPH # 1.7 10^3/uL (1.5-4.5); LYMPH % 29.5 % (24.0-44.0); MEAN CORPUSCULAR HEMOGLOBIN 28.9 pg (27.0-33.0); MEAN CORPUSCULAR HGB CONC 31.9 g/dl (32.0-36.5); MEAN CORPUSCULAR VOLUME 90.6 fl (80.0-96.0); MONO # 0.6 10^3/uL (0.0-0.8); MONO % 11.2 % (0.0-5.0); NEUTROPHILS # 3.1 10^3/uL (1.8-7.7); NEUTROPHILS % 54.7 % (36.0-66.0); PLATELET COUNT, AUTOMATED 185 10^3/uL (150-450); RED BLOOD COUNT 4.47 10^6/uL (4.30-6.10); WHITE BLOOD COUNT 5.7 10^3/uL (4.0-10.0)
[2018-07-15 19:11] LABS: HEMOGLOBIN A1c 5.7 %
== END ==
LOC: M SFHCPLAZ 15:19
PROVIDERS: ATTEND Family Medicine
DX: R73.01 Impaired fasting glucose (principal); E55.9 Vitamin D deficiency, unspecified; E78.2 Mixed hyperlipidemia

== ENCOUNTER 2022-02-02 13:32 | Inpatient (IN) | payer MEDICARE, OTHER ==
[~2022-02-02] VITALS: Ht 188 cm; Wt 87.9 kg
[~2022-02-02 13:32] MED LIST changes: -ASPI81TA85 PO; +ASPI81TA86 PO; -BISO10TA3 PO; +BISO1TAB19 PO; -IRBE300T10 PO; +IRBE300T7 PO; -LISI40TA PO; +LISI40TA4 PO
[2022-02-02] MEDS ORDERED: NS 500 ML IV ONE (14:00)
[2022-02-02] MEDS ORDERED: ISOVUE-370 76% 100ML VIAL As Ordered ONE (14:07)
[2022-02-02 15:09] LABS: BASO % 0.4 % (0.0-1.0); EOS # 0.1 10^3/uL (0.0-0.5); EOS % 0.6 % (0.0-3.0); HEMATOCRIT 38.1 % (42.0-52.0); HEMOGLOBIN 12.2 g/dl (13.5-17.5); LYMPH # 0.6 10^3/uL (1.5-5.0); LYMPH % 5.2 % (24.0-44.0); MEAN CORPUSCULAR HEMOGLOBIN 29.5 pg (27.0-33.0); MONO # 0.9 10^3/uL (0.0-0.8); MONO % 7.6 % (2.0-8.0); NEUTROPHILS # 9.8 10^3/uL (1.5-8.5); NEUTROPHILS % 85.8 % (36.0-66.0); PLATELET COUNT, AUTOMATED 174 10^3/uL (150-450); RED BLOOD COUNT 4.14 10^6/uL (4.30-6.10); WHITE BLOOD COUNT 11.4 10^3/uL (4.0-10.0)
[2022-02-02 15:19] LABS: INR 1.06
[2022-02-02 15:20] LABS: PARTIAL THROMBOPLASTIN TIME 33.7 SECONDS (24.8-34.2)
[2022-02-02 15:25] LABS: ETHYL ALCOHOL (ETHANOL) 0.003 % (0.000-0.010)
[2022-02-02 15:27] LABS: ACETAMINOPHEN LEVEL < 2.0 UG/ML (10.0-20.0); ALBUMIN 3.3 G/DL (3.2-5.2); ALKALINE PHOSPHATASE 53 U/L (46-116); ALT/SGPT 17 U/L (7.0-40); AST/SGOT 43 U/L (<34); BILIRUBIN,DIRECT 0.3 MG/DL (<0.4); BILIRUBIN,TOTAL 0.7 MG/DL (0.3-1.2); BLOOD UREA NITROGEN 20 MG/DL (9-23); CALCIUM LEVEL 8.6 MG/DL (8.3-10.6); CARBON DIOXIDE LEVEL 24 MMOL/L (20-31); CHLORIDE LEVEL 104 MMOL/L (98-107); CK-MB VALUE MASS 6.5 NG/ML (<3.6); CPK CREATINE PHOSPHOKINASE 1031 U/L (46-171); CREATININE FOR GFR 1.09 MG/DL (0.70-1.30); GLOMERULAR FILTRATION RATE > 60.0 (>35); GLUCOSE, FASTING 104 MG/DL (74-106); MB/CK RELATIVE INDEX 0.63 (< OR =4); POTASSIUM SERUM 3.8 MMOL/L (3.5-5.1); SALICYLATE LEVEL < 3.0 MG/DL (<30); SODIUM LEVEL 138 MMOL/L (136-145); TOTAL PROTEIN 5.8 G/DL (5.7-8.2)
[2022-02-02 15:29] LABS: THYROID STIMULATING HORMONE 0.501 uIU/ML (0.55-4.78)
[2022-02-02] MEDS ORDERED: ECOT81TA5 PO (15:41)
[2022-02-02] MEDS ORDERED: PRED5TA PO (15:50)
[2022-02-02] MEDS ORDERED: PYRI60TA2 PO (15:50)
[2022-02-02] MEDS ORDERED: VITA100016 PO (15:53)
[2022-02-02] MEDS ORDERED: DIPH-435 PO (15:53)
[2022-02-02] MEDS ORDERED: DOXA2TAB3 PO (15:53)
[2022-02-02] MEDS ORDERED: FOLI1TAB11 PO (15:53)
[2022-02-02] MEDS ORDERED: CYAN100049 PO (15:53)
[2022-02-02] MEDS ORDERED: METH2.5T48 PO (15:58)
[2022-02-02] MEDS ORDERED: LOSA100T45 PO (15:58)
[2022-02-02] MEDS ORDERED: K-TA10TA PO (15:58)
[2022-02-02] MEDS ORDERED: OMEP-173 PO (15:58)
[2022-02-02] MEDS ORDERED: SILD100T PO (15:58)
[2022-02-02] MEDS ORDERED: ROSU40TA4 PO (15:58)
[2022-02-02] MEDS ORDERED: MED REC COMMENT (16:03)
[2022-02-02] MEDS ORDERED: TRAM50TA2 PO (16:04)
[2022-02-02] MEDS ORDERED: HOME MED LIST COMPLETE! XX SCH (16:05)
[2022-02-02 16:28] LABS: CK-MB VALUE MASS 5.7 NG/ML (<3.6)
[2022-02-02 16:31] LABS: MB/CK RELATIVE INDEX 0.58 (< OR =4)
[2022-02-02] MEDS ORDERED: LOSARTAN 50MG TABLET PO ONE (18:00)
[2022-02-02 18:16] LABS: AMPHETAMINES LEVEL URINE NEGATIVE (NEGATIVE); BARBITURATES URINE NEGATIVE (NEGATIVE); BENZODIAZEPINES URINE NEGATIVE (NEGATIVE); COCAINE METABOLITE URINE NEGATIVE (NEGATIVE); METHADONE URINE NEGATIVE (NEGATIVE); OPIATES URINE NEGATIVE (NEGATIVE); PHENCYCLIDINE URINE NEGATIVE (NEGATIVE)
[2022-02-02 18:17] LABS: CANNABINOIDS URINE NEGATIVE (NEGATIVE)
[2022-02-02] MEDS: LR 1,000 ML IV SCH (18:25)
[2022-02-02 20:09] LABS: TOTAL 25(OH) VITAMIN D 28.2 NG/ML (20.0-100.0)
[2022-02-02] MEDS: OSELTAMIVIR PHOSPHATE 75 MG CAP (TAMIFLU) PO SCH (21:42)
[2022-02-03] MEDS: VITAMIN D 1,000 INTERNATIONAL UNITS TABLET PO SCH ×3 (00:18→20:25)
[2022-02-03] MEDS: OMEPRAZOLE 20MG CAP PO SCH ×2 (00:18→20:25)
[2022-02-03] MEDS: TAMSULOSIN 0.4 MG CAP PO SCH ×2 (00:19→20:25)
[2022-02-03] MEDS: ROSUVASTATIN 10 MG TAB (CRESTOR) PO SCH ×2 (00:19→20:25)
[2022-02-03] MEDS: PYRIDOSTIGMINE 60MG TABLET PO SCH ×5 (00:51→22:00)
[2022-02-03] MEDS: DOXAZOSIN MESYLATE 1 MG TAB PO SCH ×2 (00:51→20:24)
[2022-02-03] MEDS: LR 1,000 ML IV SCH ×2 (03:34→14:03)
[2022-02-03] MEDS: HEPARIN SOD (PORCINE) 5000UNITS/ML 1ML VIAL/SYRINGE SC SCH ×3 (06:11→20:25)
[2022-02-03] MEDS ORDERED: ASPIRIN 81MG CHEW TABLET As Ordered ONE (07:54)
[2022-02-03] MEDS ORDERED: ASPIRIN 81MG CHEW TABLET PO ONE (07:55)
[2022-02-03 08:20] LABS: BASO % 0.3 % (0.0-1.0); EOS # 0.3 10^3/uL (0.0-0.5); EOS % 2.3 % (0.0-3.0); HEMATOCRIT 34.2 % (42.0-52.0); HEMOGLOBIN 11.1 g/dl (13.5-17.5); LYMPH # 0.8 10^3/uL (1.5-5.0); LYMPH % 6.9 % (24.0-44.0); MEAN CORPUSCULAR HEMOGLOBIN 29.9 pg (27.0-33.0); MEAN CORPUSCULAR HGB CONC 32.5 g/dl (32.0-36.5); MEAN CORPUSCULAR VOLUME 92.2 fl (80.0-96.0); MONO % 8.3 % (2.0-8.0); NEUTROPHILS # 9.6 10^3/uL (1.5-8.5); NEUTROPHILS % 81.6 % (36.0-66.0); PLATELET COUNT, AUTOMATED 152 10^3/uL (150-450); RED BLOOD COUNT 3.71 10^6/uL (4.30-6.10); WHITE BLOOD COUNT 11.7 10^3/uL (4.0-10.0)
[2022-02-03 08:42] LABS: BLOOD UREA NITROGEN 22 MG/DL (9-23); CALCIUM LEVEL 8.1 MG/DL (8.3-10.6); CARBON DIOXIDE LEVEL 25 MMOL/L (20-31); CHLORIDE LEVEL 106 MMOL/L (98-107); CREATININE FOR GFR 1.06 MG/DL (0.70-1.30); GLOMERULAR FILTRATION RATE > 60.0 (>35); GLUCOSE, FASTING 92 MG/DL (74-106); POTASSIUM SERUM 3.9 MMOL/L (3.5-5.1); SODIUM LEVEL 139 MMOL/L (136-145)
[2022-02-03 09:13] LABS: CK-MB VALUE MASS 3.6 NG/ML (<3.6); MB/CK RELATIVE INDEX 0.41 (< OR =4)
[2022-02-03] MEDS: ASPIRIN 81MG ENTERIC TABLET PO SCH (10:14)
[2022-02-03] MEDS: CYANOCOBALAMIN 500 MCG TAB PO SCH (10:14)
[2022-02-03] MEDS: predniSONE 5 MG TAB PO SCH (10:14)
[2022-02-03] MEDS: OSELTAMIVIR PHOSPHATE 75 MG CAP (TAMIFLU) PO SCH ×2 (10:14→20:24)
[2022-02-03] MEDS: FOLIC ACID 1MG TAB PO SCH (10:14)
[2022-02-03] MEDS: LOSARTAN 50MG TABLET PO SCH (10:15)
[2022-02-03] MEDS ORDERED: amLODIPine 5 MG TAB PO SCH (15:40)
[2022-02-03] MEDS ORDERED: ENOXAPARIN 100MG/1ML SYRINGE (J1650 PER 10MG) SC STA (22:19)
[2022-02-04] MEDS: PYRIDOSTIGMINE 60MG TABLET PO SCH ×4 (06:00→21:40)
[2022-02-04 06:15] LABS: BASO % 0.5 % (0.0-1.0); EOS # 0.4 10^3/uL (0.0-0.5); HEMATOCRIT 35.1 % (42.0-52.0); HEMOGLOBIN 11.2 g/dl (13.5-17.5); LYMPH # 0.9 10^3/uL (1.5-5.0); LYMPH % 10.6 % (24.0-44.0); MEAN CORPUSCULAR HEMOGLOBIN 29.2 pg (27.0-33.0); MEAN CORPUSCULAR HGB CONC 31.9 g/dl (32.0-36.5); MEAN CORPUSCULAR VOLUME 91.4 fl (80.0-96.0); MONO # 0.9 10^3/uL (0.0-0.8); MONO % 11.2 % (2.0-8.0); NEUTROPHILS # 6.1 10^3/uL (1.5-8.5); NEUTROPHILS % 72.3 % (36.0-66.0); PLATELET COUNT, AUTOMATED 175 10^3/uL (150-450); RED BLOOD COUNT 3.84 10^6/uL (4.30-6.10); WHITE BLOOD COUNT 8.4 10^3/uL (4.0-10.0)
[2022-02-04 06:42] LABS: BLOOD UREA NITROGEN 20 MG/DL (9-23); CALCIUM LEVEL 8.3 MG/DL (8.3-10.6); CARBON DIOXIDE LEVEL 26 MMOL/L (20-31); CHLORIDE LEVEL 107 MMOL/L (98-107); GLOMERULAR FILTRATION RATE > 60.0 (>35); GLUCOSE, FASTING 100 MG/DL (74-106); POTASSIUM SERUM 3.7 MMOL/L (3.5-5.1); SODIUM LEVEL 140 MMOL/L (136-145)
[2022-02-04 08:42] LABS: CPK CREATINE PHOSPHOKINASE 856 U/L (46-171)
[2022-02-04] MEDS ORDERED: ENOXAPARIN 80MG/0.8ML SYRINGE (J1650 PER 10MG) SC SCH (09:00)
[2022-02-04] MEDS: predniSONE 5 MG TAB PO SCH (09:23)
[2022-02-04] MEDS: OSELTAMIVIR PHOSPHATE 75 MG CAP (TAMIFLU) PO SCH ×2 (09:26→21:40)
[2022-02-04] MEDS: CYANOCOBALAMIN 500 MCG TAB PO SCH (09:26)
[2022-02-04] MEDS: ASPIRIN 81MG ENTERIC TABLET PO SCH (09:28)
[2022-02-04] MEDS: VITAMIN D 1,000 INTERNATIONAL UNITS TABLET PO SCH ×2 (09:28→21:04)
[2022-02-04] MEDS: **hydrALAZINE HCL** 25 MG TAB PO SCH ×2 (09:28→16:06)
[2022-02-04] MEDS: LOSARTAN 50MG TABLET PO SCH (09:28)
[2022-02-04] MEDS: FOLIC ACID 1MG TAB PO SCH (09:28)
[2022-02-04] MEDS: LR 1,000 ML IV SCH ×3 (09:59→18:57)
[2022-02-04] MEDS: OMEPRAZOLE 20MG CAP PO SCH (21:04)
[2022-02-04] MEDS: **hydrALAZINE** 50 MG TAB PO SCH (21:05)
[2022-02-04] MEDS: TAMSULOSIN 0.4 MG CAP PO SCH (21:05)
[2022-02-04] MEDS: ROSUVASTATIN 10 MG TAB (CRESTOR) PO SCH (21:05)
[2022-02-04] MEDS: APIXABAN 5 MG TAB (ELIQUIS) PO SCH (21:06)
[2022-02-04] MEDS: DOXAZOSIN MESYLATE 1 MG TAB PO SCH (21:40)
[2022-02-04] MEDS: POLYVINYL ALCOHOL OPHTH SOLN 15ML (LIQUITEARS) OU PRN (21:42)
[2022-02-04 22:00] VITALS: BP 161/94
[2022-02-05 01:15] VITALS: BP 162/94
[2022-02-05] MEDS: LR 1,000 ML IV SCH (04:41)
[2022-02-05] MEDS: PYRIDOSTIGMINE 60MG TABLET PO SCH ×4 (05:38→21:42)
[2022-02-05] MEDS: traMADol 50 MG TAB PO PRN ×2 (05:39→21:58)
[2022-02-05] MEDS: POLYVINYL ALCOHOL OPHTH SOLN 15ML (LIQUITEARS) OU PRN (05:42)
[2022-02-05 06:00] VITALS: BP 172/92
[2022-02-05 06:25] LABS: BASO % 0.3 % (0.0-1.0); EOS # 0.4 10^3/uL (0.0-0.5); EOS % 5.1 % (0.0-3.0); HEMATOCRIT 34.6 % (42.0-52.0); HEMOGLOBIN 11.2 g/dl (13.5-17.5); LYMPH # 1.3 10^3/uL (1.5-5.0); LYMPH % 18.2 % (24.0-44.0); MEAN CORPUSCULAR HEMOGLOBIN 29.3 pg (27.0-33.0); MEAN CORPUSCULAR HGB CONC 32.4 g/dl (32.0-36.5); MEAN CORPUSCULAR VOLUME 90.6 fl (80.0-96.0); MONO % 14.6 % (2.0-8.0); NEUTROPHILS # 4.3 10^3/uL (1.5-8.5); NEUTROPHILS % 61.5 % (36.0-66.0); PLATELET COUNT, AUTOMATED 192 10^3/uL (150-450); RED BLOOD COUNT 3.82 10^6/uL (4.30-6.10); WHITE BLOOD COUNT 6.9 10^3/uL (4.0-10.0)
[2022-02-05 06:49] LABS: BLOOD UREA NITROGEN 15 MG/DL (9-23); CALCIUM LEVEL 8.4 MG/DL (8.3-10.6); CARBON DIOXIDE LEVEL 27 MMOL/L (20-31); CHLORIDE LEVEL 105 MMOL/L (98-107); CREATININE FOR GFR 0.94 MG/DL (0.70-1.30); GLOMERULAR FILTRATION RATE > 60.0 (>35); GLUCOSE, FASTING 97 MG/DL (74-106); POTASSIUM SERUM 3.5 MMOL/L (3.5-5.1); SODIUM LEVEL 140 MMOL/L (136-145)
[2022-02-05] MEDS: **hydrALAZINE** 50 MG TAB PO SCH ×3 (09:00→21:46)
[2022-02-05] MEDS: ASPIRIN 81MG ENTERIC TABLET PO SCH (09:59)
[2022-02-05] MEDS: OSELTAMIVIR PHOSPHATE 75 MG CAP (TAMIFLU) PO SCH ×2 (09:59→21:46)
[2022-02-05] MEDS: FOLIC ACID 1MG TAB PO SCH (09:59)
[2022-02-05] MEDS: APIXABAN 5 MG TAB (ELIQUIS) PO SCH ×2 (09:59→21:42)
[2022-02-05] MEDS: CYANOCOBALAMIN 500 MCG TAB PO SCH (09:59)
[2022-02-05] MEDS: VITAMIN D 1,000 INTERNATIONAL UNITS TABLET PO SCH ×2 (09:59→21:42)
[2022-02-05] MEDS: predniSONE 5 MG TAB PO SCH (09:59)
[2022-02-05 10:00] VITALS: BP 116/67
[2022-02-05] MEDS: LOSARTAN 50MG TABLET PO SCH (10:17)
[2022-02-05 14:00] VITALS: BP 156/87
[2022-02-05 18:00] VITALS: BP 162/64
[2022-02-05] MEDS: ROSUVASTATIN 10 MG TAB (CRESTOR) PO SCH (21:42)
[2022-02-05] MEDS: TAMSULOSIN 0.4 MG CAP PO SCH (21:42)
[2022-02-05] MEDS: OMEPRAZOLE 20MG CAP PO SCH (21:42)
[2022-02-05] MEDS: DOXAZOSIN MESYLATE 1 MG TAB PO SCH (21:45)
[2022-02-05] MEDS: POLYVINYL ALCOHOL OPHTH SOLN 15ML (LIQUITEARS) OU SCH (21:46)
[2022-02-05] MEDS: SODIUM CHLORIDE NASAL 0.65% SPRAY BTL (OCEAN) PRN (22:32)
[2022-02-05 23:27] VITALS: BP 140/60
[2022-02-05] MEDS ORDERED: MORPHINE 2 MG/ML 1ML VIAL IV ONE (23:35)
[2022-02-06 00:17] LABS: HEMATOCRIT 33.8 % (42.0-52.0); HEMOGLOBIN 11.1 g/dl (13.5-17.5)
[2022-02-06 00:23] LABS: MB/CK RELATIVE INDEX 1.71 (< OR =4)
[2022-02-06] MEDS ORDERED: NS 1,000 ML IV SCH (00:25)
[2022-02-06] MEDS: PYRIDOSTIGMINE 60MG TABLET PO SCH ×4 (05:52→22:16)
[2022-02-06 06:00] VITALS: BP 139/78
[2022-02-06 09:30] VITALS: BP 137/73
[2022-02-06] MEDS: CYANOCOBALAMIN 500 MCG TAB PO SCH (09:45)
[2022-02-06] MEDS: FOLIC ACID 1MG TAB PO SCH (09:45)
[2022-02-06] MEDS: VITAMIN D 1,000 INTERNATIONAL UNITS TABLET PO SCH ×2 (09:45→22:13)
[2022-02-06] MEDS: predniSONE 5 MG TAB PO SCH (09:46)
[2022-02-06] MEDS: ASPIRIN 81MG ENTERIC TABLET PO SCH (09:46)
[2022-02-06] MEDS: OSELTAMIVIR PHOSPHATE 75 MG CAP (TAMIFLU) PO SCH ×2 (09:46→22:13)
[2022-02-06] MEDS: APIXABAN 5 MG TAB (ELIQUIS) PO SCH ×2 (09:46→22:16)
[2022-02-06] MEDS: LOSARTAN 50MG TABLET PO SCH (09:46)
[2022-02-06] MEDS: **hydrALAZINE** 50 MG TAB PO SCH ×3 (09:47→22:16)
[2022-02-06] MEDS: POLYVINYL ALCOHOL OPHTH SOLN 15ML (LIQUITEARS) OU SCH ×3 (09:47→22:16)
[2022-02-06 11:23] VITALS: BP_SYST 110; BP_SYST 125; BP_SYST 129; BP_DIAS 54; BP_DIAS 56; BP_DIAS 58
[2022-02-06] MEDS ORDERED: NS 500 ML IV ONE (11:40)
[2022-02-06] MEDS: ONDANSETRON 4MG ORAL DISINTEGRATING TAB SL PRN (11:40)
[2022-02-06] MEDS ORDERED: MECLIZINE 12.5 MG TAB PO ONE (12:00)
[2022-02-06] MEDS ORDERED: MECLIZINE 12.5 MG TAB PO SCH (12:00)
[2022-02-06 12:41] LABS: BASO % 0.4 % (0.0-1.0); EOS # 0.1 10^3/uL (0.0-0.5); EOS % 1.4 % (0.0-3.0); HEMATOCRIT 35.1 % (42.0-52.0); HEMOGLOBIN 11.2 g/dl (13.5-17.5); LYMPH # 0.8 10^3/uL (1.5-5.0); LYMPH % 14.6 % (24.0-44.0); MEAN CORPUSCULAR HEMOGLOBIN 29.1 pg (27.0-33.0); MEAN CORPUSCULAR HGB CONC 31.9 g/dl (32.0-36.5); MEAN CORPUSCULAR VOLUME 91.2 fl (80.0-96.0); MONO # 0.5 10^3/uL (0.0-0.8); MONO % 8.8 % (2.0-8.0); NEUTROPHILS # 4.2 10^3/uL (1.5-8.5); NEUTROPHILS % 74.6 % (36.0-66.0); PLATELET COUNT, AUTOMATED 202 10^3/uL (150-450); RED BLOOD COUNT 3.85 10^6/uL (4.30-6.10); WHITE BLOOD COUNT 5.6 10^3/uL (4.0-10.0)
[2022-02-06] MEDS: IPRATROPIUM 0.5MG/ALBUTEROL 2.5MG INH SOL UD 3ML (DUONEB) NEB SCH ×2 (13:03→20:00)
[2022-02-06] MEDS: TAMSULOSIN 0.4 MG CAP PO SCH (22:13)
[2022-02-06] MEDS: ROSUVASTATIN 10 MG TAB (CRESTOR) PO SCH (22:13)
[2022-02-06] MEDS: OMEPRAZOLE 20MG CAP PO SCH (22:14)
[2022-02-06] MEDS: DOXAZOSIN MESYLATE 1 MG TAB PO SCH (22:16)
[2022-02-06] MEDS: SODIUM CHLORIDE NASAL 0.65% SPRAY BTL (OCEAN) PRN (22:17)
[2022-02-07] MEDS: IPRATROPIUM 0.5MG/ALBUTEROL 2.5MG INH SOL UD 3ML (DUONEB) NEB SCH ×4 (02:00→20:33)
[2022-02-07] MEDS: PYRIDOSTIGMINE 60MG TABLET PO SCH ×4 (05:13→20:36)
[2022-02-07 06:00] VITALS: BP 144/73
[2022-02-07] MEDS: predniSONE 5 MG TAB PO SCH (09:13)
[2022-02-07] MEDS: FOLIC ACID 1MG TAB PO SCH (09:13)
[2022-02-07] MEDS: CYANOCOBALAMIN 500 MCG TAB PO SCH (09:13)
[2022-02-07] MEDS: APIXABAN 5 MG TAB (ELIQUIS) PO SCH ×2 (09:13→20:34)
[2022-02-07] MEDS: OSELTAMIVIR PHOSPHATE 75 MG CAP (TAMIFLU) PO SCH (09:14)
[2022-02-07] MEDS: ASPIRIN 81MG ENTERIC TABLET PO SCH (09:14)
[2022-02-07] MEDS: VITAMIN D 1,000 INTERNATIONAL UNITS TABLET PO SCH ×2 (09:14→20:34)
[2022-02-07] MEDS: LOSARTAN 50MG TABLET PO SCH (09:15)
[2022-02-07] MEDS: **hydrALAZINE** 50 MG TAB PO SCH ×3 (09:15→20:35)
[2022-02-07] MEDS: METHOTREXATE 2.5MG TAB PO SCH (09:17)
[2022-02-07] MEDS: ONDANSETRON 4MG ORAL DISINTEGRATING TAB SL PRN (09:17)
[2022-02-07] MEDS: POLYVINYL ALCOHOL OPHTH SOLN 15ML (LIQUITEARS) OU SCH ×3 (09:17→20:36)
[2022-02-07] MEDS: ROSUVASTATIN 10 MG TAB (CRESTOR) PO SCH (20:34)
[2022-02-07] MEDS: traMADol 50 MG TAB PO PRN (20:35)
[2022-02-07] MEDS: TAMSULOSIN 0.4 MG CAP PO SCH (20:36)
[2022-02-07] MEDS: DOXAZOSIN MESYLATE 1 MG TAB PO SCH (20:36)
[2022-02-07] MEDS: OMEPRAZOLE 20MG CAP PO SCH (20:36)
[2022-02-08] MEDS: IPRATROPIUM 0.5MG/ALBUTEROL 2.5MG INH SOL UD 3ML (DUONEB) NEB SCH ×4 (02:00→19:34)
[2022-02-08 05:11] VITALS: BP 136/72
[2022-02-08] MEDS: PYRIDOSTIGMINE 60MG TABLET PO SCH ×4 (05:47→20:36)
[2022-02-08] MEDS: predniSONE 5 MG TAB PO SCH (08:37)
[2022-02-08] MEDS: VITAMIN D 1,000 INTERNATIONAL UNITS TABLET PO SCH ×2 (08:37→20:29)
[2022-02-08] MEDS: ASPIRIN 81MG ENTERIC TABLET PO SCH (08:37)
[2022-02-08] MEDS: **hydrALAZINE** 50 MG TAB PO SCH ×3 (08:37→20:28)
[2022-02-08] MEDS: APIXABAN 5 MG TAB (ELIQUIS) PO SCH ×2 (08:37→20:28)
[2022-02-08] MEDS: FOLIC ACID 1MG TAB PO SCH (08:37)
[2022-02-08] MEDS: CYANOCOBALAMIN 500 MCG TAB PO SCH (08:37)
[2022-02-08] MEDS: POLYVINYL ALCOHOL OPHTH SOLN 15ML (LIQUITEARS) OU SCH ×3 (08:38→20:30)
[2022-02-08] MEDS: LOSARTAN 50MG TABLET PO SCH (08:38)
[2022-02-08] MEDS: traMADol 50 MG TAB PO PRN ×2 (10:47→20:29)
[2022-02-08 16:59] VITALS: BP 134/66
[2022-02-08] MEDS: TAMSULOSIN 0.4 MG CAP PO SCH (20:28)
[2022-02-08] MEDS: ROSUVASTATIN 10 MG TAB (CRESTOR) PO SCH (20:28)
[2022-02-08] MEDS: OMEPRAZOLE 20MG CAP PO SCH (20:28)
[2022-02-08] MEDS: DOXAZOSIN MESYLATE 1 MG TAB PO SCH (20:28)
[2022-02-09] MEDS: IPRATROPIUM 0.5MG/ALBUTEROL 2.5MG INH SOL UD 3ML (DUONEB) NEB SCH ×4 (01:21→19:21)
[2022-02-09] MEDS: PYRIDOSTIGMINE 60MG TABLET PO SCH ×4 (05:15→21:11)
[2022-02-09 05:36] VITALS: BP 124/64
[2022-02-09] MEDS: FOLIC ACID 1MG TAB PO SCH (08:22)
[2022-02-09] MEDS: ASPIRIN 81MG ENTERIC TABLET PO SCH (08:22)
[2022-02-09] MEDS: LOSARTAN 50MG TABLET PO SCH (08:23)
[2022-02-09] MEDS: APIXABAN 5 MG TAB (ELIQUIS) PO SCH ×2 (08:23→21:10)
[2022-02-09] MEDS: predniSONE 5 MG TAB PO SCH (08:23)
[2022-02-09] MEDS: **hydrALAZINE** 50 MG TAB PO SCH ×3 (08:24→21:09)
[2022-02-09] MEDS: CYANOCOBALAMIN 500 MCG TAB PO SCH (08:24)
[2022-02-09] MEDS: POLYVINYL ALCOHOL OPHTH SOLN 15ML (LIQUITEARS) OU SCH ×3 (08:24→21:10)
[2022-02-09] MEDS: VITAMIN D 1,000 INTERNATIONAL UNITS TABLET PO SCH ×2 (08:24→21:10)
[2022-02-09] MEDS: traMADol 50 MG TAB PO PRN (08:29)
[2022-02-09] MEDS: MIRALAX *UNIT DOSE* 17GM PACKET PO PRN (16:55)
[2022-02-09] MEDS: SENNA 8.6 MG TAB (SENOKOT) PO SCH (16:55)
[2022-02-09] MEDS: OMEPRAZOLE 20MG CAP PO SCH (21:04)
[2022-02-09] MEDS: DOXAZOSIN MESYLATE 1 MG TAB PO SCH (21:09)
[2022-02-09] MEDS: ROSUVASTATIN 10 MG TAB (CRESTOR) PO SCH (21:10)
[2022-02-09] MEDS: TAMSULOSIN 0.4 MG CAP PO SCH (21:10)
[2022-02-10] MEDS: IPRATROPIUM 0.5MG/ALBUTEROL 2.5MG INH SOL UD 3ML (DUONEB) NEB SCH ×4 (01:47→19:21)
[2022-02-10] MEDS: PYRIDOSTIGMINE 60MG TABLET PO SCH ×4 (05:50→21:06)
[2022-02-10 06:00] VITALS: BP 141/61
[2022-02-10] MEDS: APIXABAN 5 MG TAB (ELIQUIS) PO SCH ×2 (08:45→21:02)
[2022-02-10] MEDS: SENNA 8.6 MG TAB (SENOKOT) PO SCH (08:45)
[2022-02-10] MEDS: VITAMIN D 1,000 INTERNATIONAL UNITS TABLET PO SCH ×2 (08:45→21:06)
[2022-02-10] MEDS: **hydrALAZINE** 50 MG TAB PO SCH ×3 (08:46→21:05)
[2022-02-10] MEDS: CYANOCOBALAMIN 500 MCG TAB PO SCH (08:46)
[2022-02-10] MEDS: FOLIC ACID 1MG TAB PO SCH (08:46)
[2022-02-10] MEDS: ASPIRIN 81MG ENTERIC TABLET PO SCH (08:47)
[2022-02-10] MEDS: predniSONE 5 MG TAB PO SCH (08:47)
[2022-02-10] MEDS: LOSARTAN 50MG TABLET PO SCH (08:47)
[2022-02-10] MEDS: POLYVINYL ALCOHOL OPHTH SOLN 15ML (LIQUITEARS) OU SCH ×3 (08:51→21:07)
[2022-02-10] MEDS: traMADol 50 MG TAB PO PRN (08:54)
[2022-02-10] MEDS: ONDANSETRON 4MG ORAL DISINTEGRATING TAB SL PRN ×2 (11:03→18:01)
[2022-02-10] MEDS: ROSUVASTATIN 10 MG TAB (CRESTOR) PO SCH (21:01)
[2022-02-10] MEDS: DOXAZOSIN MESYLATE 1 MG TAB PO SCH (21:06)
[2022-02-10] MEDS: TAMSULOSIN 0.4 MG CAP PO SCH (21:06)
[2022-02-10] MEDS: OMEPRAZOLE 20MG CAP PO SCH (21:07)
[2022-02-11] MEDS: IPRATROPIUM 0.5MG/ALBUTEROL 2.5MG INH SOL UD 3ML (DUONEB) NEB SCH ×2 (01:57→07:59)
[2022-02-11 06:00] VITALS: BP 130/64
[2022-02-11] MEDS: PYRIDOSTIGMINE 60MG TABLET PO SCH ×4 (06:10→22:02)
[2022-02-11] MEDS: FOLIC ACID 1MG TAB PO SCH (07:47)
[2022-02-11] MEDS: predniSONE 5 MG TAB PO SCH (07:47)
[2022-02-11] MEDS: SENNA 8.6 MG TAB (SENOKOT) PO SCH (07:47)
[2022-02-11] MEDS: APIXABAN 5 MG TAB (ELIQUIS) PO SCH ×2 (07:47→22:02)
[2022-02-11] MEDS: CYANOCOBALAMIN 500 MCG TAB PO SCH (07:47)
[2022-02-11] MEDS: LOSARTAN 50MG TABLET PO SCH (07:48)
[2022-02-11] MEDS: **hydrALAZINE** 50 MG TAB PO SCH ×3 (07:48→22:04)
[2022-02-11] MEDS: VITAMIN D 1,000 INTERNATIONAL UNITS TABLET PO SCH ×2 (07:48→22:03)
[2022-02-11] MEDS: ASPIRIN 81MG ENTERIC TABLET PO SCH (07:48)
[2022-02-11] MEDS: POLYVINYL ALCOHOL OPHTH SOLN 15ML (LIQUITEARS) OU SCH ×3 (07:49→22:03)
[2022-02-11] MEDS: traMADol 50 MG TAB PO PRN ×2 (07:52→16:41)
[2022-02-11] MEDS: MIRALAX *UNIT DOSE* 17GM PACKET PO PRN (16:37)
[2022-02-11] MEDS: OMEPRAZOLE 20MG CAP PO SCH (22:02)
[2022-02-11] MEDS: ROSUVASTATIN 10 MG TAB (CRESTOR) PO SCH (22:02)
[2022-02-11] MEDS: TAMSULOSIN 0.4 MG CAP PO SCH (22:02)
[2022-02-11] MEDS: DOXAZOSIN MESYLATE 1 MG TAB PO SCH (22:03)
[2022-02-12] MEDS: PYRIDOSTIGMINE 60MG TABLET PO SCH ×4 (05:54→21:07)
[2022-02-12 06:00] VITALS: BP 137/80
[2022-02-12] MEDS: FOLIC ACID 1MG TAB PO SCH (09:43)
[2022-02-12] MEDS: traMADol 50 MG TAB PO PRN ×2 (09:43→21:15)
[2022-02-12] MEDS: CYANOCOBALAMIN 500 MCG TAB PO SCH (09:44)
[2022-02-12] MEDS: LOSARTAN 50MG TABLET PO SCH (09:44)
[2022-02-12] MEDS: **hydrALAZINE** 50 MG TAB PO SCH ×3 (09:44→21:07)
[2022-02-12] MEDS: predniSONE 5 MG TAB PO SCH (09:44)
[2022-02-12] MEDS: APIXABAN 5 MG TAB (ELIQUIS) PO SCH ×2 (09:45→21:08)
[2022-02-12] MEDS: ASPIRIN 81MG ENTERIC TABLET PO SCH (09:45)
[2022-02-12] MEDS: SENNA 8.6 MG TAB (SENOKOT) PO SCH (09:45)
[2022-02-12] MEDS: VITAMIN D 1,000 INTERNATIONAL UNITS TABLET PO SCH ×2 (09:45→21:07)
[2022-02-12] MEDS: POLYVINYL ALCOHOL OPHTH SOLN 15ML (LIQUITEARS) OU SCH ×3 (09:46→21:08)
[2022-02-12] MEDS: ONDANSETRON 4MG ORAL DISINTEGRATING TAB SL PRN (09:48)
[2022-02-12] MEDS: SODIUM CHLORIDE NASAL 0.65% SPRAY BTL (OCEAN) PRN (09:51)
[2022-02-12] MEDS: ROSUVASTATIN 10 MG TAB (CRESTOR) PO SCH (21:07)
[2022-02-12] MEDS: OMEPRAZOLE 20MG CAP PO SCH (21:07)
[2022-02-12] MEDS: TAMSULOSIN 0.4 MG CAP PO SCH (21:07)
[2022-02-12] MEDS: DOXAZOSIN MESYLATE 1 MG TAB PO SCH (21:08)
[2022-02-13 00:18] VITALS: BP 124/76
[2022-02-13 05:43] VITALS: BP 126/74
[2022-02-13] MEDS: PYRIDOSTIGMINE 60MG TABLET PO SCH ×4 (05:43→21:02)
[2022-02-13] MEDS: VITAMIN D 1,000 INTERNATIONAL UNITS TABLET PO SCH ×2 (09:03→21:01)
[2022-02-13] MEDS: LOSARTAN 50MG TABLET PO SCH (09:03)
[2022-02-13] MEDS: predniSONE 5 MG TAB PO SCH (09:03)
[2022-02-13] MEDS: FOLIC ACID 1MG TAB PO SCH (09:03)
[2022-02-13] MEDS: SENNA 8.6 MG TAB (SENOKOT) PO SCH (09:03)
[2022-02-13] MEDS: **hydrALAZINE** 50 MG TAB PO SCH ×3 (09:03→21:02)
[2022-02-13] MEDS: CYANOCOBALAMIN 500 MCG TAB PO SCH (09:03)
[2022-02-13] MEDS: APIXABAN 5 MG TAB (ELIQUIS) PO SCH ×2 (09:04→21:01)
[2022-02-13] MEDS: ASPIRIN 81MG ENTERIC TABLET PO SCH (09:04)
[2022-02-13] MEDS: POLYVINYL ALCOHOL OPHTH SOLN 15ML (LIQUITEARS) OU SCH ×3 (09:04→20:55)
[2022-02-13] MEDS: traMADol 50 MG TAB PO PRN ×2 (10:12→23:43)
[2022-02-13] MEDS ORDERED: CALCIUM CARBONATE 500 MG CHEW U/D PO ONE (13:35)
[2022-02-13 14:04] LABS: HEMATOCRIT 34.3 % (42.0-52.0); HEMOGLOBIN 11.1 g/dl (13.5-17.5); MEAN CORPUSCULAR HEMOGLOBIN 29.5 pg (27.0-33.0); MEAN CORPUSCULAR HGB CONC 32.4 g/dl (32.0-36.5); MEAN CORPUSCULAR VOLUME 91.2 fl (80.0-96.0); PLATELET COUNT, AUTOMATED 287 10^3/uL (150-450); RED BLOOD COUNT 3.76 10^6/uL (4.30-6.10); WHITE BLOOD COUNT 8.8 10^3/uL (4.0-10.0)
[2022-02-13 14:27] LABS: BLOOD UREA NITROGEN 22 MG/DL (9-23); CALCIUM LEVEL 8.4 MG/DL (8.3-10.6); CARBON DIOXIDE LEVEL 24 MMOL/L (20-31); CHLORIDE LEVEL 101 MMOL/L (98-107); CREATININE FOR GFR 1.18 MG/DL (0.70-1.30); GLOMERULAR FILTRATION RATE > 60.0 (>35); GLUCOSE, FASTING 103 MG/DL (74-106); POTASSIUM SERUM 4.4 MMOL/L (3.5-5.1); SODIUM LEVEL 134 MMOL/L (136-145)
[2022-02-13] MEDS: OMEPRAZOLE 20MG CAP PO SCH (21:01)
[2022-02-13] MEDS: TAMSULOSIN 0.4 MG CAP PO SCH (21:02)
[2022-02-13] MEDS: DOXAZOSIN MESYLATE 1 MG TAB PO SCH (21:06)
[2022-02-13] MEDS: ROSUVASTATIN 10 MG TAB (CRESTOR) PO SCH (21:06)
[2022-02-13] MEDS: diphenhydrAMINE 25MG CAP PO PRN (23:42)
[2022-02-14] MEDS: PYRIDOSTIGMINE 60MG TABLET PO SCH ×5 (05:57→20:45)
[2022-02-14 06:00] VITALS: BP 149/74
[2022-02-14 08:00] VITALS: BP 150/75
[2022-02-14] MEDS: APIXABAN 5 MG TAB (ELIQUIS) PO SCH ×3 (09:22→20:45)
[2022-02-14] MEDS: SENNA 8.6 MG TAB (SENOKOT) PO SCH (09:22)
[2022-02-14] MEDS: VITAMIN D 1,000 INTERNATIONAL UNITS TABLET PO SCH ×3 (09:22→20:45)
[2022-02-14] MEDS: POLYVINYL ALCOHOL OPHTH SOLN 15ML (LIQUITEARS) OU SCH ×3 (09:22→20:32)
[2022-02-14] MEDS: ASPIRIN 81MG ENTERIC TABLET PO SCH (09:22)
[2022-02-14] MEDS: CYANOCOBALAMIN 500 MCG TAB PO SCH (09:22)
[2022-02-14] MEDS: FOLIC ACID 1MG TAB PO SCH (09:23)
[2022-02-14] MEDS: predniSONE 5 MG TAB PO SCH (09:23)
[2022-02-14] MEDS: METHOTREXATE 2.5MG TAB PO SCH (09:23)
[2022-02-14] MEDS: LOSARTAN 50MG TABLET PO SCH (09:23)
[2022-02-14] MEDS: **hydrALAZINE** 50 MG TAB PO SCH ×4 (09:23→20:44)
[2022-02-14] MEDS: MIRALAX *UNIT DOSE* 17GM PACKET PO PRN (10:43)
[2022-02-14 14:05] VITALS: BP 134/66
[2022-02-14] MEDS: SENNA 8.6 MG TAB (SENOKOT) PO PRN (16:52)
[2022-02-14] MEDS ORDERED: METOCLOPRAMIDE 10MG TAB PO ONE (17:00)
[2022-02-14] MEDS: MIRALAX *UNIT DOSE* 17GM PACKET PO SCH (17:00)
[2022-02-14] MEDS ORDERED: METOCLOPRAMIDE 5 MG TAB PO PRN (17:55)
[2022-02-14] MEDS: OMEPRAZOLE 20MG CAP PO SCH ×2 (20:31→20:45)
[2022-02-14] MEDS: ROSUVASTATIN 10 MG TAB (CRESTOR) PO SCH ×2 (20:31→20:45)
[2022-02-14] MEDS: TAMSULOSIN 0.4 MG CAP PO SCH ×2 (20:31→20:45)
[2022-02-14] MEDS: DOXAZOSIN MESYLATE 1 MG TAB PO SCH ×2 (20:32→20:45)
[2022-02-14 20:43] VITALS: BP 125/58
[2022-02-15] MEDS: PYRIDOSTIGMINE 60MG TABLET PO SCH ×4 (05:44→20:00)
[2022-02-15 05:45] VITALS: BP 158/70
[2022-02-15] MEDS: ASPIRIN 81MG ENTERIC TABLET PO SCH (08:45)
[2022-02-15] MEDS: SENNA 8.6 MG TAB (SENOKOT) PO SCH (08:45)
[2022-02-15] MEDS: LOSARTAN 50MG TABLET PO SCH (08:45)
[2022-02-15] MEDS: predniSONE 5 MG TAB PO SCH (08:46)
[2022-02-15] MEDS: POLYVINYL ALCOHOL OPHTH SOLN 15ML (LIQUITEARS) OU SCH ×3 (08:46→20:01)
[2022-02-15] MEDS: **hydrALAZINE** 50 MG TAB PO SCH ×3 (08:46→20:01)
[2022-02-15] MEDS: VITAMIN D 1,000 INTERNATIONAL UNITS TABLET PO SCH ×2 (08:46→20:00)
[2022-02-15] MEDS: APIXABAN 5 MG TAB (ELIQUIS) PO SCH ×2 (08:46→20:00)
[2022-02-15] MEDS: CYANOCOBALAMIN 500 MCG TAB PO SCH (08:46)
[2022-02-15] MEDS: FOLIC ACID 1MG TAB PO SCH (08:46)
[2022-02-15] MEDS: MIRALAX *UNIT DOSE* 17GM PACKET PO SCH (10:51)
[2022-02-15] MEDS: PANTOPRAZOLE 40MG TAB (PROTONIX) PO SCH ×2 (11:52→20:00)
[2022-02-15] MEDS: BACLOFEN 5MG PER 1/2 TABLET PO PRN (16:33)
[2022-02-15] MEDS: SENNA 8.6 MG TAB (SENOKOT) PO PRN (16:34)
[2022-02-15] MEDS ORDERED: FLEET OIL RETENTION ENEMA PR PRN (17:05)
[2022-02-15] MEDS ORDERED: LACTULOSE 20GM/30ML SYRUP UDC PO ONE (17:05)
[2022-02-15] MEDS: diphenhydrAMINE 25MG CAP PO PRN (19:59)
[2022-02-15] MEDS: TAMSULOSIN 0.4 MG CAP PO SCH (20:00)
[2022-02-15] MEDS: ROSUVASTATIN 10 MG TAB (CRESTOR) PO SCH (20:00)
[2022-02-15] MEDS: DOXAZOSIN MESYLATE 1 MG TAB PO SCH (20:01)
[2022-02-15] MEDS: traMADol 50 MG TAB PO PRN (20:01)
[2022-02-16] MEDS: PYRIDOSTIGMINE 60MG TABLET PO SCH ×4 (05:57→22:34)
[2022-02-16 06:00] VITALS: BP 154/69
[2022-02-16] MEDS: VITAMIN D 1,000 INTERNATIONAL UNITS TABLET PO SCH ×2 (08:35→22:34)
[2022-02-16] MEDS: PANTOPRAZOLE 40MG TAB (PROTONIX) PO SCH ×2 (08:35→22:33)
[2022-02-16] MEDS: FOLIC ACID 1MG TAB PO SCH (08:35)
[2022-02-16] MEDS: predniSONE 5 MG TAB PO SCH (08:35)
[2022-02-16] MEDS: CYANOCOBALAMIN 500 MCG TAB PO SCH (08:36)
[2022-02-16] MEDS: ASPIRIN 81MG ENTERIC TABLET PO SCH (08:36)
[2022-02-16] MEDS: traMADol 50 MG TAB PO PRN ×2 (08:36→20:54)
[2022-02-16] MEDS: APIXABAN 5 MG TAB (ELIQUIS) PO SCH ×2 (08:36→22:33)
[2022-02-16] MEDS: POLYVINYL ALCOHOL OPHTH SOLN 15ML (LIQUITEARS) OU SCH ×3 (08:37→23:11)
[2022-02-16] MEDS: LOSARTAN 50MG TABLET PO SCH (08:39)
[2022-02-16] MEDS: MIRALAX *UNIT DOSE* 17GM PACKET PO SCH (09:00)
[2022-02-16] MEDS: **hydrALAZINE** 50 MG TAB PO SCH ×3 (09:00→21:00)
[2022-02-16] MEDS: SENNA 8.6 MG TAB (SENOKOT) PO SCH (09:00)
[2022-02-16] MEDS: ROSUVASTATIN 10 MG TAB (CRESTOR) PO SCH (22:31)
[2022-02-16] MEDS: DOXAZOSIN MESYLATE 1 MG TAB PO SCH (22:33)
[2022-02-16] MEDS: TAMSULOSIN 0.4 MG CAP PO SCH (22:34)
[2022-02-17] MEDS: PYRIDOSTIGMINE 60MG TABLET PO SCH ×4 (05:20→21:50)
[2022-02-17 06:00] VITALS: BP 116/74
[2022-02-17] MEDS: SENNA 8.6 MG TAB (SENOKOT) PO SCH (09:00)
[2022-02-17] MEDS: MIRALAX *UNIT DOSE* 17GM PACKET PO SCH (09:00)
[2022-02-17] MEDS: **hydrALAZINE** 50 MG TAB PO SCH ×3 (09:00→21:51)
[2022-02-17] MEDS: traMADol 50 MG TAB PO PRN (09:11)
[2022-02-17] MEDS: LOSARTAN 50MG TABLET PO SCH (09:12)
[2022-02-17] MEDS: PANTOPRAZOLE 40MG TAB (PROTONIX) PO SCH ×2 (09:12→21:50)
[2022-02-17] MEDS: APIXABAN 5 MG TAB (ELIQUIS) PO SCH ×2 (09:12→21:50)
[2022-02-17] MEDS: FOLIC ACID 1MG TAB PO SCH (09:12)
[2022-02-17] MEDS: CYANOCOBALAMIN 500 MCG TAB PO SCH (09:12)
[2022-02-17] MEDS: predniSONE 5 MG TAB PO SCH (09:13)
[2022-02-17] MEDS: VITAMIN D 1,000 INTERNATIONAL UNITS TABLET PO SCH ×2 (09:13→21:50)
[2022-02-17] MEDS: ASPIRIN 81MG ENTERIC TABLET PO SCH (09:13)
[2022-02-17] MEDS: POLYVINYL ALCOHOL OPHTH SOLN 15ML (LIQUITEARS) OU SCH ×3 (09:14→21:52)
[2022-02-17] MEDS: TAMSULOSIN 0.4 MG CAP PO SCH (21:50)
[2022-02-17] MEDS: ROSUVASTATIN 10 MG TAB (CRESTOR) PO SCH (21:50)
[2022-02-17] MEDS: DOXAZOSIN MESYLATE 1 MG TAB PO SCH (21:51)
[2022-02-18] MEDS: FLUTICASONE PROP 0.05% NASAL SPRAY 16 GM (FLONASE) NARES SCH (03:42)
[2022-02-18 06:00] VITALS: BP 128/65
[2022-02-18] MEDS: PYRIDOSTIGMINE 60MG TABLET PO SCH ×4 (06:01→20:18)
[2022-02-18] MEDS: POLYVINYL ALCOHOL OPHTH SOLN 15ML (LIQUITEARS) OU SCH ×3 (08:36→20:17)
[2022-02-18] MEDS: ASPIRIN 81MG ENTERIC TABLET PO SCH (08:36)
[2022-02-18] MEDS: MIRALAX *UNIT DOSE* 17GM PACKET PO SCH (08:36)
[2022-02-18] MEDS: LOSARTAN 50MG TABLET PO SCH (08:37)
[2022-02-18] MEDS: predniSONE 5 MG TAB PO SCH (08:37)
[2022-02-18] MEDS: **hydrALAZINE** 50 MG TAB PO SCH ×3 (08:38→20:16)
[2022-02-18] MEDS: SENNA 8.6 MG TAB (SENOKOT) PO SCH (08:38)
[2022-02-18] MEDS: CYANOCOBALAMIN 500 MCG TAB PO SCH (08:38)
[2022-02-18] MEDS: APIXABAN 5 MG TAB (ELIQUIS) PO SCH ×2 (08:39→20:16)
[2022-02-18] MEDS: VITAMIN D 1,000 INTERNATIONAL UNITS TABLET PO SCH ×2 (08:39→20:16)
[2022-02-18] MEDS: traMADol 50 MG TAB PO PRN ×2 (08:39→17:39)
[2022-02-18] MEDS: PANTOPRAZOLE 40MG TAB (PROTONIX) PO SCH ×2 (08:39→20:17)
[2022-02-18] MEDS: FOLIC ACID 1MG TAB PO SCH (08:39)
[2022-02-18] MEDS: DOXAZOSIN MESYLATE 1 MG TAB PO SCH (20:16)
[2022-02-18] MEDS: ROSUVASTATIN 10 MG TAB (CRESTOR) PO SCH (20:16)
[2022-02-18] MEDS: TAMSULOSIN 0.4 MG CAP PO SCH (20:16)
[2022-02-19] MEDS: traMADol 50 MG TAB PO PRN ×2 (00:38→22:04)
[2022-02-19 01:17] VITALS: BP 127/65
[2022-02-19 01:25] VITALS: BP 127/68
[2022-02-19] MEDS ORDERED: IPRATROPIUM 0.5MG/ALBUTEROL 2.5MG INH SOL UD 3ML (DUONEB) NEB PRN (01:30)
[2022-02-19 01:55] VITALS: BP 123/65
[2022-02-19] MEDS: SODIUM CHLORIDE NASAL 0.65% SPRAY BTL (OCEAN) PRN ×2 (02:36→22:13)
[2022-02-19 02:42] LABS: VENOUS BASE EXCESS -0.2 (-2.0-2.0); VENOUS HCO3 22.7 MEQ/L (23.0-27.0); VENOUS PARTIAL PRESSURE CO2 31.9 mmHg (38.0-50.0); VENOUS PARTIAL PRESSURE O2 150.5 mmHg (30.0-50.0); VENOUS PH 7.471 UNITS (7.330-7.430); VENOUS STANDARD HCO3 24.3 MEQ/L; VENOUS TOTAL CO2 23.7 MEQ/L (24.0-28.0)
[2022-02-19 02:56] LABS: BASO # 0.1 10^3/uL (0.0-0.2); BASO % 0.9 % (0.0-1.0); EOS # 0.4 10^3/uL (0.0-0.5); EOS % 5.9 % (0.0-3.0); HEMATOCRIT 34.7 % (42.0-52.0); HEMOGLOBIN 10.9 g/dl (13.5-17.5); LYMPH # 1.7 10^3/uL (1.5-5.0); LYMPH % 25.2 % (24.0-44.0); MEAN CORPUSCULAR HEMOGLOBIN 28.4 pg (27.0-33.0); MEAN CORPUSCULAR HGB CONC 31.4 g/dl (32.0-36.5); MEAN CORPUSCULAR VOLUME 90.4 fl (80.0-96.0); MONO # 0.7 10^3/uL (0.0-0.8); MONO % 10.2 % (2.0-8.0); NEUTROPHILS # 3.8 10^3/uL (1.5-8.5); NEUTROPHILS % 57.6 % (36.0-66.0); PLATELET COUNT, AUTOMATED 260 10^3/uL (150-450); RED BLOOD COUNT 3.84 10^6/uL (4.30-6.10); WHITE BLOOD COUNT 6.6 10^3/uL (4.0-10.0)
[2022-02-19 03:11] LABS: CALCIUM LEVEL 8.3 MG/DL (8.3-10.6); CREATININE FOR GFR 1.34 MG/DL (0.70-1.30); GLOMERULAR FILTRATION RATE 54.1 (>35); POTASSIUM SERUM 4.1 MMOL/L (3.5-5.1)
[2022-02-19 05:03] VITALS: BP 122/65
[2022-02-19] MEDS: PYRIDOSTIGMINE 60MG TABLET PO SCH ×4 (06:14→22:06)
[2022-02-19] MEDS: FLUTICASONE PROP 0.05% NASAL SPRAY 16 GM (FLONASE) NARES SCH ×2 (09:00→22:07)
[2022-02-19] MEDS: ASPIRIN 81MG ENTERIC TABLET PO SCH (09:51)
[2022-02-19] MEDS: FOLIC ACID 1MG TAB PO SCH (09:51)
[2022-02-19] MEDS: VITAMIN D 1,000 INTERNATIONAL UNITS TABLET PO SCH ×2 (09:51→22:06)
[2022-02-19] MEDS: predniSONE 5 MG TAB PO SCH (09:51)
[2022-02-19] MEDS: SENNA 8.6 MG TAB (SENOKOT) PO SCH (09:52)
[2022-02-19] MEDS: LOSARTAN 50MG TABLET PO SCH (09:52)
[2022-02-19] MEDS: APIXABAN 5 MG TAB (ELIQUIS) PO SCH ×2 (09:52→22:05)
[2022-02-19] MEDS: CYANOCOBALAMIN 500 MCG TAB PO SCH (09:52)
[2022-02-19] MEDS: PANTOPRAZOLE 40MG TAB (PROTONIX) PO SCH ×2 (09:52→22:06)
[2022-02-19] MEDS: **hydrALAZINE** 50 MG TAB PO SCH ×3 (09:52→22:06)
[2022-02-19] MEDS: POLYVINYL ALCOHOL OPHTH SOLN 15ML (LIQUITEARS) OU SCH ×3 (09:53→22:07)
[2022-02-19] MEDS: MIRALAX *UNIT DOSE* 17GM PACKET PO SCH (09:53)
[2022-02-19] MEDS: SENNA 8.6 MG TAB (SENOKOT) PO PRN (22:04)
[2022-02-19] MEDS: TAMSULOSIN 0.4 MG CAP PO SCH (22:04)
[2022-02-19] MEDS: diphenhydrAMINE 25MG CAP PO PRN ×2 (22:06→22:21)
[2022-02-19] MEDS: DOXAZOSIN MESYLATE 1 MG TAB PO SCH (22:06)
[2022-02-19] MEDS: ROSUVASTATIN 10 MG TAB (CRESTOR) PO SCH (22:06)
[2022-02-20 06:00] VITALS: BP 138/66
[2022-02-20] MEDS: PYRIDOSTIGMINE 60MG TABLET PO SCH ×4 (06:35→20:10)
[2022-02-20 09:18] VITALS: BP 137/66
[2022-02-20] MEDS: MIRALAX *UNIT DOSE* 17GM PACKET PO SCH (09:18)
[2022-02-20] MEDS: POLYVINYL ALCOHOL OPHTH SOLN 15ML (LIQUITEARS) OU SCH ×3 (09:18→20:11)
[2022-02-20] MEDS: FOLIC ACID 1MG TAB PO SCH (09:18)
[2022-02-20] MEDS: FLUTICASONE PROP 0.05% NASAL SPRAY 16 GM (FLONASE) NARES SCH ×2 (09:18→20:11)
[2022-02-20] MEDS: SENNA 8.6 MG TAB (SENOKOT) PO SCH (09:19)
[2022-02-20] MEDS: PANTOPRAZOLE 40MG TAB (PROTONIX) PO SCH ×2 (09:19→20:10)
[2022-02-20] MEDS: CYANOCOBALAMIN 500 MCG TAB PO SCH (09:19)
[2022-02-20] MEDS: traMADol 50 MG TAB PO PRN ×2 (09:19→21:28)
[2022-02-20] MEDS: APIXABAN 5 MG TAB (ELIQUIS) PO SCH ×2 (09:19→20:10)
[2022-02-20] MEDS: ASPIRIN 81MG ENTERIC TABLET PO SCH (09:19)
[2022-02-20] MEDS: LOSARTAN 50MG TABLET PO SCH (09:20)
[2022-02-20] MEDS: **hydrALAZINE** 50 MG TAB PO SCH ×3 (09:20→20:11)
[2022-02-20] MEDS: VITAMIN D 1,000 INTERNATIONAL UNITS TABLET PO SCH ×2 (09:20→20:10)
[2022-02-20] MEDS: predniSONE 5 MG TAB PO SCH (09:20)
[2022-02-20] MEDS: SENNA 8.6 MG TAB (SENOKOT) PO PRN (17:37)
[2022-02-20] MEDS: TAMSULOSIN 0.4 MG CAP PO SCH (20:10)
[2022-02-20] MEDS: ROSUVASTATIN 10 MG TAB (CRESTOR) PO SCH (20:10)
[2022-02-20] MEDS: DOXAZOSIN MESYLATE 1 MG TAB PO SCH (20:11)
[2022-02-20] MEDS: diphenhydrAMINE 25MG CAP PO PRN (21:30)
[2022-02-21] MEDS: PYRIDOSTIGMINE 60MG TABLET PO SCH ×4 (05:59→21:53)
[2022-02-21 06:00] VITALS: BP 134/74
[2022-02-21 06:14] LABS: BASO # 0.1 10^3/uL (0.0-0.2); BASO % 0.9 % (0.0-1.0); EOS # 0.5 10^3/uL (0.0-0.5); EOS % 7.7 % (0.0-3.0); HEMATOCRIT 33.2 % (42.0-52.0); HEMOGLOBIN 10.9 g/dl (13.5-17.5); LYMPH # 1.3 10^3/uL (1.5-5.0); LYMPH % 19.8 % (24.0-44.0); MEAN CORPUSCULAR HEMOGLOBIN 29.6 pg (27.0-33.0); MEAN CORPUSCULAR HGB CONC 32.8 g/dl (32.0-36.5); MEAN CORPUSCULAR VOLUME 90.2 fl (80.0-96.0); MONO # 0.7 10^3/uL (0.0-0.8); MONO % 10.1 % (2.0-8.0); NEUTROPHILS # 4.1 10^3/uL (1.5-8.5); NEUTROPHILS % 61.2 % (36.0-66.0); PLATELET COUNT, AUTOMATED 216 10^3/uL (150-450); RED BLOOD COUNT 3.68 10^6/uL (4.30-6.10); WHITE BLOOD COUNT 6.6 10^3/uL (4.0-10.0)
[2022-02-21 06:44] LABS: MAGNESIUM LEVEL 1.9 MG/DL (1.8-2.4)
[2022-02-21 06:45] LABS: BLOOD UREA NITROGEN 21 MG/DL (9-23); CALCIUM LEVEL 8.2 MG/DL (8.3-10.6); CARBON DIOXIDE LEVEL 26 MMOL/L (20-31); CHLORIDE LEVEL 102 MMOL/L (98-107); CREATININE FOR GFR 1.13 MG/DL (0.70-1.30); GLOMERULAR FILTRATION RATE > 60.0 (>35); GLUCOSE, FASTING 85 MG/DL (74-106); SODIUM LEVEL 134 MMOL/L (136-145)
[2022-02-21 07:47] VITALS: BP 136/74
[2022-02-21] MEDS: POLYVINYL ALCOHOL OPHTH SOLN 15ML (LIQUITEARS) OU SCH ×3 (08:31→21:56)
[2022-02-21] MEDS: FLUTICASONE PROP 0.05% NASAL SPRAY 16 GM (FLONASE) NARES SCH ×2 (08:31→21:56)
[2022-02-21] MEDS: MIRALAX *UNIT DOSE* 17GM PACKET PO SCH (09:00)
[2022-02-21 09:18] VITALS: BP 128/61
[2022-02-21] MEDS: **hydrALAZINE** 50 MG TAB PO SCH ×3 (09:46→21:55)
[2022-02-21] MEDS: APIXABAN 5 MG TAB (ELIQUIS) PO SCH ×2 (09:46→21:55)
[2022-02-21] MEDS: SENNA 8.6 MG TAB (SENOKOT) PO SCH (09:47)
[2022-02-21] MEDS: PANTOPRAZOLE 40MG TAB (PROTONIX) PO SCH ×2 (09:47→21:55)
[2022-02-21] MEDS: CYANOCOBALAMIN 500 MCG TAB PO SCH (09:47)
[2022-02-21] MEDS: predniSONE 5 MG TAB PO SCH (09:47)
[2022-02-21] MEDS: FOLIC ACID 1MG TAB PO SCH (09:47)
[2022-02-21] MEDS: ASPIRIN 81MG ENTERIC TABLET PO SCH (09:48)
[2022-02-21] MEDS: VITAMIN D 1,000 INTERNATIONAL UNITS TABLET PO SCH ×2 (10:55→21:55)
[2022-02-21] MEDS: METHOTREXATE 2.5MG TAB PO SCH (10:56)
[2022-02-21] MEDS: traMADol 50 MG TAB PO PRN ×2 (12:13→21:56)
[2022-02-21] MEDS: ONDANSETRON 4MG ORAL DISINTEGRATING TAB SL PRN (13:31)
[2022-02-21] MEDS: TAMSULOSIN 0.4 MG CAP PO SCH (21:55)
[2022-02-21] MEDS: DOXAZOSIN MESYLATE 1 MG TAB PO SCH (21:55)
[2022-02-21] MEDS: diphenhydrAMINE 25MG CAP PO PRN (21:55)
[2022-02-21] MEDS: ROSUVASTATIN 10 MG TAB (CRESTOR) PO SCH (21:56)
[2022-02-22] MEDS: PYRIDOSTIGMINE 60MG TABLET PO SCH ×4 (05:31→20:52)
[2022-02-22 06:00] VITALS: BP 118/79
[2022-02-22] MEDS: MIRALAX *UNIT DOSE* 17GM PACKET PO SCH (10:17)
[2022-02-22] MEDS: ASPIRIN 81MG ENTERIC TABLET PO SCH (10:17)
[2022-02-22] MEDS: PANTOPRAZOLE 40MG TAB (PROTONIX) PO SCH ×2 (10:17→20:52)
[2022-02-22] MEDS: FOLIC ACID 1MG TAB PO SCH (10:17)
[2022-02-22] MEDS: APIXABAN 5 MG TAB (ELIQUIS) PO SCH ×2 (10:17→20:51)
[2022-02-22] MEDS: SENNA 8.6 MG TAB (SENOKOT) PO SCH (10:17)
[2022-02-22] MEDS: FLUTICASONE PROP 0.05% NASAL SPRAY 16 GM (FLONASE) NARES SCH ×2 (10:18→20:54)
[2022-02-22] MEDS: predniSONE 5 MG TAB PO SCH (10:18)
[2022-02-22] MEDS: CYANOCOBALAMIN 500 MCG TAB PO SCH (10:18)
[2022-02-22] MEDS: **hydrALAZINE** 50 MG TAB PO SCH ×3 (10:18→20:53)
[2022-02-22] MEDS: VITAMIN D 1,000 INTERNATIONAL UNITS TABLET PO SCH ×2 (10:18→20:52)
[2022-02-22] MEDS: SODIUM CHLORIDE NASAL 0.65% SPRAY BTL (OCEAN) PRN ×2 (10:19→20:54)
[2022-02-22] MEDS: POLYVINYL ALCOHOL OPHTH SOLN 15ML (LIQUITEARS) OU SCH ×3 (10:19→20:55)
[2022-02-22] MEDS: diphenhydrAMINE 25MG CAP PO PRN (20:51)
[2022-02-22] MEDS: ROSUVASTATIN 10 MG TAB (CRESTOR) PO SCH (20:52)
[2022-02-22] MEDS: SENNA 8.6 MG TAB (SENOKOT) PO PRN (20:52)
[2022-02-22] MEDS: TAMSULOSIN 0.4 MG CAP PO SCH (20:52)
[2022-02-22] MEDS: DOXAZOSIN MESYLATE 1 MG TAB PO SCH (20:53)
[2022-02-22] MEDS: traMADol 50 MG TAB PO PRN (20:54)
[2022-02-23] MEDS: PYRIDOSTIGMINE 60MG TABLET PO SCH ×5 (05:52→21:37)
[2022-02-23 06:00] VITALS: BP 141/72
[2022-02-23] MEDS: **hydrALAZINE** 50 MG TAB PO SCH ×3 (09:58→21:37)
[2022-02-23] MEDS: CYANOCOBALAMIN 500 MCG TAB PO SCH (09:58)
[2022-02-23] MEDS: FOLIC ACID 1MG TAB PO SCH (09:58)
[2022-02-23] MEDS: predniSONE 5 MG TAB PO SCH (09:58)
[2022-02-23] MEDS: ASPIRIN 81MG ENTERIC TABLET PO SCH (09:58)
[2022-02-23] MEDS: MIRALAX *UNIT DOSE* 17GM PACKET PO SCH (09:58)
[2022-02-23] MEDS: SENNA 8.6 MG TAB (SENOKOT) PO SCH (09:59)
[2022-02-23] MEDS: POLYVINYL ALCOHOL OPHTH SOLN 15ML (LIQUITEARS) OU SCH ×3 (09:59→21:38)
[2022-02-23] MEDS: PANTOPRAZOLE 40MG TAB (PROTONIX) PO SCH ×2 (09:59→21:37)
[2022-02-23] MEDS: FLUTICASONE PROP 0.05% NASAL SPRAY 16 GM (FLONASE) NARES SCH ×2 (09:59→21:38)
[2022-02-23] MEDS: VITAMIN D 1,000 INTERNATIONAL UNITS TABLET PO SCH ×2 (09:59→21:37)
[2022-02-23] MEDS: APIXABAN 5 MG TAB (ELIQUIS) PO SCH ×2 (09:59→21:37)
[2022-02-23 12:13] LABS: BASO % 0.6 % (0.0-1.0); EOS # 0.3 10^3/uL (0.0-0.5); EOS % 5.1 % (0.0-3.0); HEMATOCRIT 36.4 % (42.0-52.0); HEMOGLOBIN 11.6 g/dl (13.5-17.5); LYMPH # 1.3 10^3/uL (1.5-5.0); LYMPH % 18.7 % (24.0-44.0); MEAN CORPUSCULAR HGB CONC 31.9 g/dl (32.0-36.5); MONO # 0.5 10^3/uL (0.0-0.8); MONO % 6.7 % (2.0-8.0); NEUTROPHILS # 4.6 10^3/uL (1.5-8.5); NEUTROPHILS % 68.6 % (36.0-66.0); PLATELET COUNT, AUTOMATED 203 10^3/uL (150-450); WHITE BLOOD COUNT 6.7 10^3/uL (4.0-10.0)
[2022-02-23 12:36] LABS: LIPASE 28 U/L (12-53)
[2022-02-23 12:37] LABS: AMYLASE 66 U/L (30-118); MAGNESIUM LEVEL 1.9 MG/DL (1.8-2.4)
[2022-02-23 12:38] LABS: BLOOD UREA NITROGEN 22 MG/DL (9-23); CALCIUM LEVEL 8.5 MG/DL (8.3-10.6); CARBON DIOXIDE LEVEL 24 MMOL/L (20-31); CHLORIDE LEVEL 101 MMOL/L (98-107); CPK CREATINE PHOSPHOKINASE 42 U/L (46-171); CREATININE FOR GFR 1.15 MG/DL (0.70-1.30); GLOMERULAR FILTRATION RATE > 60.0 (>35); GLUCOSE, FASTING 109 MG/DL (74-106); POTASSIUM SERUM 3.7 MMOL/L (3.5-5.1); SODIUM LEVEL 134 MMOL/L (136-145)
[2022-02-23 12:39] LABS: CK-MB VALUE MASS < 1.0 NG/ML (<3.6); MB/CK RELATIVE INDEX 2.38 (< OR =4)
[2022-02-23] MEDS ORDERED: FLEET ENEMA PR ONE ×2 (14:00→18:55)
[2022-02-23] MEDS ORDERED: BISACODYL 10MG SUPP PR ONE (14:15)
[2022-02-23 16:16] VITALS: BP 123/50
[2022-02-23] MEDS: ONDANSETRON 4MG ORAL DISINTEGRATING TAB SL PRN ×2 (16:21→23:09)
[2022-02-23] MEDS ORDERED: ISOVUE-370 76% 100ML VIAL As Ordered ONE (17:31)
[2022-02-23 18:22] LABS: BILIRUBIN,DIRECT 0.2 MG/DL (<0.4)
[2022-02-23 18:23] LABS: ALKALINE PHOSPHATASE 49 U/L (46-116); ALT/SGPT 13 U/L (7.0-40); AST/SGOT 15 U/L (<34); BILIRUBIN,TOTAL 0.6 MG/DL (0.3-1.2); TOTAL PROTEIN 5.5 G/DL (5.7-8.2)
[2022-02-23 18:39] LABS: CPK CREATINE PHOSPHOKINASE 56 U/L (46-171)
[2022-02-23] MEDS: TAMSULOSIN 0.4 MG CAP PO SCH (21:36)
[2022-02-23] MEDS: ROSUVASTATIN 10 MG TAB (CRESTOR) PO SCH (21:36)
[2022-02-23] MEDS: DOCUSATE SODIUM 100MG CAPSULE PO SCH (21:37)
[2022-02-23] MEDS: DOXAZOSIN MESYLATE 1 MG TAB PO SCH (21:37)
[2022-02-23] MEDS: diphenhydrAMINE 25MG CAP PO PRN (23:09)
[2022-02-23] MEDS: traMADol 50 MG TAB PO PRN (23:10)
[2022-02-24 06:00] VITALS: BP 133/69
[2022-02-24] MEDS: PYRIDOSTIGMINE 60MG TABLET PO SCH ×4 (06:07→21:24)
[2022-02-24] MEDS: PANTOPRAZOLE 40MG TAB (PROTONIX) PO SCH ×2 (08:59→21:22)
[2022-02-24] MEDS: CYANOCOBALAMIN 500 MCG TAB PO SCH (08:59)
[2022-02-24] MEDS: DOCUSATE SODIUM 100MG CAPSULE PO SCH ×2 (09:00→21:23)
[2022-02-24] MEDS: ASPIRIN 81MG ENTERIC TABLET PO SCH (09:00)
[2022-02-24] MEDS: APIXABAN 5 MG TAB (ELIQUIS) PO SCH ×2 (09:00→21:25)
[2022-02-24] MEDS: VITAMIN D 1,000 INTERNATIONAL UNITS TABLET PO SCH ×2 (09:00→21:25)
[2022-02-24] MEDS: MIRALAX *UNIT DOSE* 17GM PACKET PO SCH (09:01)
[2022-02-24] MEDS: predniSONE 5 MG TAB PO SCH (09:01)
[2022-02-24] MEDS: FOLIC ACID 1MG TAB PO SCH (09:01)
[2022-02-24] MEDS: SENNA 8.6 MG TAB (SENOKOT) PO SCH (09:01)
[2022-02-24] MEDS: **hydrALAZINE** 50 MG TAB PO SCH ×3 (09:03→21:00)
[2022-02-24] MEDS: FLUTICASONE PROP 0.05% NASAL SPRAY 16 GM (FLONASE) NARES SCH ×2 (09:06→21:24)
[2022-02-24] MEDS: POLYVINYL ALCOHOL OPHTH SOLN 15ML (LIQUITEARS) OU SCH ×3 (09:06→21:25)
[2022-02-24] MEDS: traMADol 50 MG TAB PO PRN (11:51)
[2022-02-24] MEDS: TAMSULOSIN 0.4 MG CAP PO SCH (21:22)
[2022-02-24] MEDS: DOXAZOSIN MESYLATE 1 MG TAB PO SCH (21:23)
[2022-02-24] MEDS: ROSUVASTATIN 10 MG TAB (CRESTOR) PO SCH (21:23)
[2022-02-25] MEDS: PYRIDOSTIGMINE 60MG TABLET PO SCH ×4 (05:18→21:11)
[2022-02-25 06:00] VITALS: BP 143/85
[2022-02-25] MEDS: SENNA 8.6 MG TAB (SENOKOT) PO SCH (09:00)
[2022-02-25] MEDS: FOLIC ACID 1MG TAB PO SCH (09:00)
[2022-02-25] MEDS: ASPIRIN 81MG ENTERIC TABLET PO SCH (09:00)
[2022-02-25] MEDS: predniSONE 5 MG TAB PO SCH (09:00)
[2022-02-25] MEDS: POLYVINYL ALCOHOL OPHTH SOLN 15ML (LIQUITEARS) OU SCH ×3 (09:00→21:11)
[2022-02-25] MEDS: PANTOPRAZOLE 40MG TAB (PROTONIX) PO SCH ×2 (09:00→21:10)
[2022-02-25] MEDS: MIRALAX *UNIT DOSE* 17GM PACKET PO SCH (09:00)
[2022-02-25] MEDS: VITAMIN D 1,000 INTERNATIONAL UNITS TABLET PO SCH ×2 (09:00→21:10)
[2022-02-25] MEDS: **hydrALAZINE** 50 MG TAB PO SCH ×3 (09:00→21:10)
[2022-02-25] MEDS: DOCUSATE SODIUM 100MG CAPSULE PO SCH ×2 (09:00→21:11)
[2022-02-25] MEDS: FLUTICASONE PROP 0.05% NASAL SPRAY 16 GM (FLONASE) NARES SCH ×2 (09:00→21:10)
[2022-02-25] MEDS: CYANOCOBALAMIN 500 MCG TAB PO SCH (09:00)
[2022-02-25] MEDS: APIXABAN 5 MG TAB (ELIQUIS) PO SCH ×2 (09:00→21:11)
[2022-02-25 09:45] VITALS: BP 141/80
[2022-02-25 10:34] LABS: BASO % 0.7 % (0.0-1.0); EOS # 0.3 10^3/uL (0.0-0.5); EOS % 5.9 % (0.0-3.0); HEMATOCRIT 31.3 % (42.0-52.0); HEMOGLOBIN 9.9 g/dl (13.5-17.5); LYMPH # 1.2 10^3/uL (1.5-5.0); LYMPH % 21.9 % (24.0-44.0); MEAN CORPUSCULAR HEMOGLOBIN 28.6 pg (27.0-33.0); MEAN CORPUSCULAR HGB CONC 31.6 g/dl (32.0-36.5); MEAN CORPUSCULAR VOLUME 90.5 fl (80.0-96.0); MONO # 0.6 10^3/uL (0.0-0.8); MONO % 10.3 % (2.0-8.0); NEUTROPHILS # 3.4 10^3/uL (1.5-8.5); PLATELET COUNT, AUTOMATED 188 10^3/uL (150-450); RED BLOOD COUNT 3.46 10^6/uL (4.30-6.10); WHITE BLOOD COUNT 5.6 10^3/uL (4.0-10.0)
[2022-02-25 11:00] LABS: MAGNESIUM LEVEL 1.8 MG/DL (1.8-2.4)
[2022-02-25 11:04] LABS: ALBUMIN 2.8 G/DL (3.2-5.2); ALKALINE PHOSPHATASE 45 U/L (46-116); ALT/SGPT 11 U/L (7.0-40); AST/SGOT 12 U/L (<34); BILIRUBIN,TOTAL 0.6 MG/DL (0.3-1.2); BLOOD UREA NITROGEN 19 MG/DL (9-23); CALCIUM LEVEL 8.4 MG/DL (8.3-10.6); CARBON DIOXIDE LEVEL 28 MMOL/L (20-31); CHLORIDE LEVEL 104 MMOL/L (98-107); CREATININE FOR GFR 1.17 MG/DL (0.70-1.30); GLOMERULAR FILTRATION RATE > 60.0 (>35); GLUCOSE, FASTING 92 MG/DL (74-106); POTASSIUM SERUM 3.8 MMOL/L (3.5-5.1); SODIUM LEVEL 137 MMOL/L (136-145); TOTAL PROTEIN 4.8 G/DL (5.7-8.2)
[2022-02-25] MEDS: ONDANSETRON 4MG 2ML VIAL IV PRN (21:04)
[2022-02-25] MEDS: ROSUVASTATIN 10 MG TAB (CRESTOR) PO SCH (21:10)
[2022-02-25] MEDS: TAMSULOSIN 0.4 MG CAP PO SCH (21:10)
[2022-02-25] MEDS: DOXAZOSIN MESYLATE 1 MG TAB PO SCH (21:11)
[2022-02-26] MEDS: PYRIDOSTIGMINE 60MG TABLET PO SCH ×4 (05:13→22:18)
[2022-02-26 05:30] VITALS: BP 126/71
[2022-02-26] MEDS: PANTOPRAZOLE 40MG TAB (PROTONIX) PO SCH ×2 (08:48→22:18)
[2022-02-26] MEDS: CYANOCOBALAMIN 500 MCG TAB PO SCH (08:48)
[2022-02-26] MEDS: MIRALAX *UNIT DOSE* 17GM PACKET PO SCH (08:48)
[2022-02-26] MEDS: ASPIRIN 81MG ENTERIC TABLET PO SCH (08:48)
[2022-02-26] MEDS: predniSONE 5 MG TAB PO SCH (08:48)
[2022-02-26] MEDS: FOLIC ACID 1MG TAB PO SCH (08:48)
[2022-02-26] MEDS: DOCUSATE SODIUM 100MG CAPSULE PO SCH ×2 (08:48→22:18)
[2022-02-26] MEDS: SENNA 8.6 MG TAB (SENOKOT) PO SCH (08:48)
[2022-02-26] MEDS: POLYVINYL ALCOHOL OPHTH SOLN 15ML (LIQUITEARS) OU SCH ×3 (08:49→22:19)
[2022-02-26] MEDS: APIXABAN 5 MG TAB (ELIQUIS) PO SCH ×2 (08:49→22:19)
[2022-02-26] MEDS: VITAMIN D 1,000 INTERNATIONAL UNITS TABLET PO SCH ×2 (08:49→22:18)
[2022-02-26] MEDS: **hydrALAZINE** 50 MG TAB PO SCH ×3 (08:49→22:17)
[2022-02-26] MEDS: FLUTICASONE PROP 0.05% NASAL SPRAY 16 GM (FLONASE) NARES SCH ×2 (08:49→22:19)
[2022-02-26] MEDS: traMADol 50 MG TAB PO PRN (11:59)
[2022-02-26] MEDS: SENNA 8.6 MG TAB (SENOKOT) PO PRN (16:27)
[2022-02-26] MEDS: TAMSULOSIN 0.4 MG CAP PO SCH (22:18)
[2022-02-26] MEDS: DOXAZOSIN MESYLATE 1 MG TAB PO SCH (22:18)
[2022-02-26] MEDS: ROSUVASTATIN 10 MG TAB (CRESTOR) PO SCH (22:18)
[2022-02-27] MEDS: diphenhydrAMINE 25MG CAP PO PRN (01:46)
[2022-02-27] MEDS: traMADol 50 MG TAB PO PRN ×2 (01:46→16:40)
[2022-02-27 05:12] VITALS: BP 144/75
[2022-02-27] MEDS: BACLOFEN 5MG PER 1/2 TABLET PO PRN ×2 (06:04→19:35)
[2022-02-27] MEDS: PYRIDOSTIGMINE 60MG TABLET PO SCH ×4 (06:04→23:22)
[2022-02-27] MEDS: MIRALAX *UNIT DOSE* 17GM PACKET PO SCH (08:45)
[2022-02-27] MEDS: DOCUSATE SODIUM 100MG CAPSULE PO SCH ×2 (08:45→23:17)
[2022-02-27] MEDS: PANTOPRAZOLE 40MG TAB (PROTONIX) PO SCH ×2 (08:45→23:17)
[2022-02-27] MEDS: APIXABAN 5 MG TAB (ELIQUIS) PO SCH ×2 (08:45→23:16)
[2022-02-27] MEDS: VITAMIN D 1,000 INTERNATIONAL UNITS TABLET PO SCH ×2 (08:45→23:17)
[2022-02-27] MEDS: ASPIRIN 81MG ENTERIC TABLET PO SCH (08:46)
[2022-02-27] MEDS: **hydrALAZINE** 50 MG TAB PO SCH ×3 (08:46→23:18)
[2022-02-27] MEDS: CYANOCOBALAMIN 500 MCG TAB PO SCH (08:47)
[2022-02-27] MEDS: FLUTICASONE PROP 0.05% NASAL SPRAY 16 GM (FLONASE) NARES SCH ×2 (08:47→23:28)
[2022-02-27] MEDS: FOLIC ACID 1MG TAB PO SCH (08:47)
[2022-02-27] MEDS: POLYVINYL ALCOHOL OPHTH SOLN 15ML (LIQUITEARS) OU SCH ×3 (08:48→23:27)
[2022-02-27] MEDS: predniSONE 5 MG TAB PO SCH (08:48)
[2022-02-27] MEDS: SENNA 8.6 MG TAB (SENOKOT) PO SCH (08:48)
[2022-02-27] MEDS: ONDANSETRON 4MG 2ML VIAL IV PRN (18:00)
[2022-02-27] MEDS: ROSUVASTATIN 10 MG TAB (CRESTOR) PO SCH (23:17)
[2022-02-27] MEDS: TAMSULOSIN 0.4 MG CAP PO SCH (23:17)
[2022-02-27] MEDS: DOXAZOSIN MESYLATE 1 MG TAB PO SCH (23:27)
[2022-02-28] MEDS: ONDANSETRON 4MG 2ML VIAL IV PRN (00:03)
[2022-02-28] MEDS: PYRIDOSTIGMINE 60MG TABLET PO SCH ×4 (05:42→22:41)
[2022-02-28 06:41] VITALS: BP 134/74
[2022-02-28] MEDS: CYANOCOBALAMIN 500 MCG TAB PO SCH (09:56)
[2022-02-28] MEDS: ASPIRIN 81MG ENTERIC TABLET PO SCH (09:56)
[2022-02-28] MEDS: predniSONE 5 MG TAB PO SCH (09:56)
[2022-02-28] MEDS: MIRALAX *UNIT DOSE* 17GM PACKET PO SCH (09:57)
[2022-02-28] MEDS: PANTOPRAZOLE 40MG TAB (PROTONIX) PO SCH ×2 (09:57→22:40)
[2022-02-28] MEDS: APIXABAN 5 MG TAB (ELIQUIS) PO SCH ×2 (09:57→22:41)
[2022-02-28] MEDS: **hydrALAZINE** 50 MG TAB PO SCH ×3 (09:57→21:00)
[2022-02-28] MEDS: SENNA 8.6 MG TAB (SENOKOT) PO SCH (09:57)
[2022-02-28] MEDS: DOCUSATE SODIUM 100MG CAPSULE PO SCH ×2 (09:57→22:41)
[2022-02-28] MEDS: FLUTICASONE PROP 0.05% NASAL SPRAY 16 GM (FLONASE) NARES SCH ×2 (09:58→22:42)
[2022-02-28] MEDS: POLYVINYL ALCOHOL OPHTH SOLN 15ML (LIQUITEARS) OU SCH ×3 (09:58→22:42)
[2022-02-28] MEDS: METHOTREXATE 2.5MG TAB PO SCH (09:58)
[2022-02-28] MEDS: FOLIC ACID 1MG TAB PO SCH (09:58)
[2022-02-28] MEDS: VITAMIN D 1,000 INTERNATIONAL UNITS TABLET PO SCH ×2 (09:58→22:40)
[2022-02-28 12:20] VITALS: BP 117/59
[2022-02-28 16:00] VITALS: BP 128/64
[2022-02-28] MEDS ORDERED: METOCLOPRAMIDE INJ 10MG/2ML VIAL IV ONE (20:10)
[2022-02-28] MEDS: ROSUVASTATIN 10 MG TAB (CRESTOR) PO SCH (22:40)
[2022-02-28] MEDS: TAMSULOSIN 0.4 MG CAP PO SCH (22:41)
[2022-02-28] MEDS: DOXAZOSIN MESYLATE 1 MG TAB PO SCH (22:42)
[2022-03-01] MEDS: PYRIDOSTIGMINE 60MG TABLET PO SCH ×4 (05:38→21:00)
[2022-03-01 06:00] VITALS: BP 122/74
[2022-03-01 06:25] LABS: BASO % 0.6 % (0.0-1.0); EOS # 0.5 10^3/uL (0.0-0.5); EOS % 7.6 % (0.0-3.0); HEMATOCRIT 32.7 % (42.0-52.0); HEMOGLOBIN 10.6 g/dl (13.5-17.5); LYMPH # 1.1 10^3/uL (1.5-5.0); LYMPH % 16.7 % (24.0-44.0); MEAN CORPUSCULAR HEMOGLOBIN 29.2 pg (27.0-33.0); MEAN CORPUSCULAR HGB CONC 32.4 g/dl (32.0-36.5); MEAN CORPUSCULAR VOLUME 90.1 fl (80.0-96.0); MONO # 0.6 10^3/uL (0.0-0.8); MONO % 8.9 % (2.0-8.0); NEUTROPHILS # 4.5 10^3/uL (1.5-8.5); NEUTROPHILS % 65.9 % (36.0-66.0); PLATELET COUNT, AUTOMATED 158 10^3/uL (150-450); RED BLOOD COUNT 3.63 10^6/uL (4.30-6.10); WHITE BLOOD COUNT 6.8 10^3/uL (4.0-10.0)
[2022-03-01 06:49] LABS: ALBUMIN 2.7 G/DL (3.2-5.2); BILIRUBIN,TOTAL 0.4 MG/DL (0.3-1.2); CALCIUM LEVEL 8.3 MG/DL (8.3-10.6); CREATININE FOR GFR 1.27 MG/DL (0.70-1.30); GLOMERULAR FILTRATION RATE 57.5 (>35); POTASSIUM SERUM 3.7 MMOL/L (3.5-5.1); TOTAL PROTEIN 4.7 G/DL (5.7-8.2)
[2022-03-01] MEDS: DOCUSATE SODIUM 100MG CAPSULE PO SCH ×2 (08:58→21:00)
[2022-03-01] MEDS: **hydrALAZINE** 50 MG TAB PO SCH ×3 (08:58→21:01)
[2022-03-01] MEDS: ASPIRIN 81MG ENTERIC TABLET PO SCH (08:58)
[2022-03-01] MEDS: SENNA 8.6 MG TAB (SENOKOT) PO SCH (08:59)
[2022-03-01] MEDS: predniSONE 5 MG TAB PO SCH (08:59)
[2022-03-01] MEDS: PANTOPRAZOLE 40MG TAB (PROTONIX) PO SCH ×2 (08:59→21:00)
[2022-03-01] MEDS: FOLIC ACID 1MG TAB PO SCH (08:59)
[2022-03-01] MEDS: CYANOCOBALAMIN 500 MCG TAB PO SCH (08:59)
[2022-03-01] MEDS: APIXABAN 5 MG TAB (ELIQUIS) PO SCH ×2 (08:59→21:00)
[2022-03-01] MEDS: MIRALAX *UNIT DOSE* 17GM PACKET PO SCH (09:00)
[2022-03-01] MEDS: POLYVINYL ALCOHOL OPHTH SOLN 15ML (LIQUITEARS) OU SCH ×3 (09:00→21:01)
[2022-03-01] MEDS: VITAMIN D 1,000 INTERNATIONAL UNITS TABLET PO SCH ×2 (09:00→20:59)
[2022-03-01] MEDS: FLUTICASONE PROP 0.05% NASAL SPRAY 16 GM (FLONASE) NARES SCH ×2 (09:00→21:01)
[2022-03-01] MEDS: traMADol 50 MG TAB PO PRN ×2 (09:01→23:23)
[2022-03-01] MEDS: TAMSULOSIN 0.4 MG CAP PO SCH (21:00)
[2022-03-01] MEDS: ROSUVASTATIN 10 MG TAB (CRESTOR) PO SCH (21:00)
[2022-03-01] MEDS: DOXAZOSIN MESYLATE 1 MG TAB PO SCH (21:01)
[2022-03-01] MEDS: diphenhydrAMINE 25MG CAP PO PRN (23:21)
[2022-03-02] MEDS: PYRIDOSTIGMINE 60MG TABLET PO SCH ×4 (05:11→21:36)
[2022-03-02 06:00] VITALS: BP 128/70
[2022-03-02] MEDS: ASPIRIN 81MG ENTERIC TABLET PO SCH (07:56)
[2022-03-02] MEDS: DOCUSATE SODIUM 100MG CAPSULE PO SCH ×2 (07:56→21:37)
[2022-03-02] MEDS: predniSONE 5 MG TAB PO SCH (07:57)
[2022-03-02] MEDS: SENNA 8.6 MG TAB (SENOKOT) PO SCH (07:57)
[2022-03-02] MEDS: VITAMIN D 1,000 INTERNATIONAL UNITS TABLET PO SCH ×2 (07:57→21:36)
[2022-03-02] MEDS: MIRALAX *UNIT DOSE* 17GM PACKET PO SCH (07:58)
[2022-03-02] MEDS: FOLIC ACID 1MG TAB PO SCH (07:58)
[2022-03-02] MEDS: PANTOPRAZOLE 40MG TAB (PROTONIX) PO SCH ×2 (07:58→21:36)
[2022-03-02] MEDS: CYANOCOBALAMIN 500 MCG TAB PO SCH (07:58)
[2022-03-02] MEDS: APIXABAN 5 MG TAB (ELIQUIS) PO SCH ×2 (07:58→21:36)
[2022-03-02] MEDS: **hydrALAZINE** 50 MG TAB PO SCH ×3 (07:59→21:36)
[2022-03-02] MEDS: METOCLOPRAMIDE 5 MG TAB PO PRN (07:59)
[2022-03-02] MEDS: FLUTICASONE PROP 0.05% NASAL SPRAY 16 GM (FLONASE) NARES SCH ×2 (08:00→21:37)
[2022-03-02] MEDS: POLYVINYL ALCOHOL OPHTH SOLN 15ML (LIQUITEARS) OU SCH ×3 (08:00→21:37)
[2022-03-02] MEDS: traMADol 50 MG TAB PO PRN ×2 (12:30→23:34)
[2022-03-02] MEDS: DOXAZOSIN MESYLATE 1 MG TAB PO SCH (21:35)
[2022-03-02] MEDS: ROSUVASTATIN 10 MG TAB (CRESTOR) PO SCH (21:36)
[2022-03-02] MEDS: TAMSULOSIN 0.4 MG CAP PO SCH (21:36)
[2022-03-02] MEDS: diphenhydrAMINE 25MG CAP PO PRN (23:33)
[2022-03-03] MEDS: PYRIDOSTIGMINE 60MG TABLET PO SCH ×4 (05:38→21:43)
[2022-03-03 06:00] VITALS: BP 123/69
[2022-03-03 07:57] LABS: BASO % 0.7 % (0.0-1.0); EOS # 0.6 10^3/uL (0.0-0.5); EOS % 9.9 % (0.0-3.0); HEMATOCRIT 34.1 % (42.0-52.0); HEMOGLOBIN 10.9 g/dl (13.5-17.5); LYMPH # 1.3 10^3/uL (1.5-5.0); LYMPH % 22.9 % (24.0-44.0); MEAN CORPUSCULAR HEMOGLOBIN 29.1 pg (27.0-33.0); MEAN CORPUSCULAR VOLUME 90.9 fl (80.0-96.0); MONO # 0.6 10^3/uL (0.0-0.8); MONO % 9.7 % (2.0-8.0); NEUTROPHILS # 3.3 10^3/uL (1.5-8.5); NEUTROPHILS % 56.5 % (36.0-66.0); PLATELET COUNT, AUTOMATED 158 10^3/uL (150-450); RED BLOOD COUNT 3.75 10^6/uL (4.30-6.10); WHITE BLOOD COUNT 5.8 10^3/uL (4.0-10.0)
[2022-03-03 08:25] LABS: MAGNESIUM LEVEL 1.8 MG/DL (1.8-2.4)
[2022-03-03 08:28] LABS: BLOOD UREA NITROGEN 20 MG/DL (9-23); CALCIUM LEVEL 8.2 MG/DL (8.3-10.6); CARBON DIOXIDE LEVEL 30 MMOL/L (20-31); CHLORIDE LEVEL 104 MMOL/L (98-107); CREATININE FOR GFR 1.18 MG/DL (0.70-1.30); GLOMERULAR FILTRATION RATE > 60.0 (>35); GLUCOSE, FASTING 95 MG/DL (74-106); POTASSIUM SERUM 3.7 MMOL/L (3.5-5.1); SODIUM LEVEL 138 MMOL/L (136-145)
[2022-03-03] MEDS: CYANOCOBALAMIN 500 MCG TAB PO SCH (08:28)
[2022-03-03] MEDS: METOCLOPRAMIDE 5 MG TAB PO PRN (08:28)
[2022-03-03] MEDS: DOCUSATE SODIUM 100MG CAPSULE PO SCH ×2 (08:28→21:44)
[2022-03-03] MEDS: predniSONE 5 MG TAB PO SCH (08:28)
[2022-03-03] MEDS: MIRALAX *UNIT DOSE* 17GM PACKET PO SCH (08:28)
[2022-03-03] MEDS: FOLIC ACID 1MG TAB PO SCH (08:28)
[2022-03-03] MEDS: SENNA 8.6 MG TAB (SENOKOT) PO SCH (08:29)
[2022-03-03] MEDS: VITAMIN D 1,000 INTERNATIONAL UNITS TABLET PO SCH ×2 (08:29→21:44)
[2022-03-03] MEDS: PANTOPRAZOLE 40MG TAB (PROTONIX) PO SCH ×2 (08:29→21:44)
[2022-03-03] MEDS: ASPIRIN 81MG ENTERIC TABLET PO SCH (08:29)
[2022-03-03] MEDS: APIXABAN 5 MG TAB (ELIQUIS) PO SCH ×2 (08:29→21:44)
[2022-03-03] MEDS: FLUTICASONE PROP 0.05% NASAL SPRAY 16 GM (FLONASE) NARES SCH ×2 (08:30→21:46)
[2022-03-03] MEDS: **hydrALAZINE** 50 MG TAB PO SCH ×3 (08:30→21:00)
[2022-03-03] MEDS: POLYVINYL ALCOHOL OPHTH SOLN 15ML (LIQUITEARS) OU SCH ×3 (08:31→21:46)
[2022-03-03] MEDS ORDERED: ISOVUE-370 76% 100ML VIAL As Ordered ONE (13:25)
[2022-03-03 14:08] LABS: BILIRUBIN,DIRECT 0.2 MG/DL (<0.4)
[2022-03-03 14:10] LABS: BILIRUBIN,TOTAL 0.5 MG/DL (0.3-1.2); TOTAL PROTEIN 5.1 G/DL (5.7-8.2)
[2022-03-03 15:05] LABS: ABG BASE EXCESS 1.8 (-2.0-2.0); ABG HCO3 25.7 MEQ/L (22.0-26.0); ABG O2 SATURATION 95.6 % (95.0-99.0); ABG PARTIAL PRESSURE CO2 37.8 mmHg (35.0-45.0); ABG STANDARD HCO3 26.1 MEQ/L (22.0-26.0); ABG TOTAL CO2 26.9 MEQ/L (23.0-31.0); ABG pH (ARTERIAL) 7.451 UNITS (7.350-7.450)
[2022-03-03] MEDS: SALIVA SUBSTITUTE(MOUTHKOTE) BTL MT PRN (16:08)
[2022-03-03] MEDS: DOXAZOSIN MESYLATE 1 MG TAB PO SCH (21:00)
[2022-03-03] MEDS: TAMSULOSIN 0.4 MG CAP PO SCH (21:44)
[2022-03-03] MEDS: ROSUVASTATIN 10 MG TAB (CRESTOR) PO SCH (21:46)
[2022-03-04] MEDS: traMADol 50 MG TAB PO PRN ×2 (03:32→21:13)
[2022-03-04] MEDS: PYRIDOSTIGMINE 60MG TABLET PO SCH ×4 (05:00→21:11)
[2022-03-04 06:00] VITALS: BP 118/70
[2022-03-04] MEDS: PANTOPRAZOLE 40MG TAB (PROTONIX) PO SCH ×2 (08:24→21:11)
[2022-03-04] MEDS: predniSONE 5 MG TAB PO SCH (08:24)
[2022-03-04] MEDS: CYANOCOBALAMIN 500 MCG TAB PO SCH (08:24)
[2022-03-04] MEDS: FOLIC ACID 1MG TAB PO SCH (08:24)
[2022-03-04] MEDS: **hydrALAZINE** 50 MG TAB PO SCH ×3 (08:24→21:00)
[2022-03-04] MEDS: ASPIRIN 81MG ENTERIC TABLET PO SCH (08:25)
[2022-03-04] MEDS: MIRALAX *UNIT DOSE* 17GM PACKET PO SCH ×2 (08:25→08:29)
[2022-03-04] MEDS: DOCUSATE SODIUM 100MG CAPSULE PO SCH ×2 (08:25→21:11)
[2022-03-04] MEDS: POLYVINYL ALCOHOL OPHTH SOLN 15ML (LIQUITEARS) OU SCH ×3 (08:25→21:12)
[2022-03-04] MEDS: SENNA 8.6 MG TAB (SENOKOT) PO SCH (08:25)
[2022-03-04] MEDS: VITAMIN D 1,000 INTERNATIONAL UNITS TABLET PO SCH ×2 (08:25→21:11)
[2022-03-04] MEDS: FLUTICASONE PROP 0.05% NASAL SPRAY 16 GM (FLONASE) NARES SCH ×2 (08:25→21:12)
[2022-03-04] MEDS: APIXABAN 5 MG TAB (ELIQUIS) PO SCH ×2 (08:25→21:11)
[2022-03-04] MEDS: METOCLOPRAMIDE 5 MG TAB PO PRN (13:14)
[2022-03-04] MEDS: TAMSULOSIN 0.4 MG CAP PO SCH (21:11)
[2022-03-04] MEDS: ROSUVASTATIN 10 MG TAB (CRESTOR) PO SCH (21:11)
[2022-03-04] MEDS: diphenhydrAMINE 25MG CAP PO PRN (21:11)
[2022-03-04] MEDS: DOXAZOSIN MESYLATE 1 MG TAB PO SCH (21:12)
[2022-03-05] MEDS: PYRIDOSTIGMINE 60MG TABLET PO SCH ×4 (05:34→21:16)
[2022-03-05 05:35] VITALS: BP 136/78
[2022-03-05 09:00] VITALS: BP 113/65
[2022-03-05] MEDS: **hydrALAZINE** 50 MG TAB PO SCH ×3 (09:00→21:17)
[2022-03-05] MEDS: APIXABAN 5 MG TAB (ELIQUIS) PO SCH ×2 (09:30→21:16)
[2022-03-05] MEDS: MIRALAX *UNIT DOSE* 17GM PACKET PO SCH (09:30)
[2022-03-05] MEDS: ASPIRIN 81MG ENTERIC TABLET PO SCH (09:30)
[2022-03-05] MEDS: FOLIC ACID 1MG TAB PO SCH (09:30)
[2022-03-05] MEDS: PANTOPRAZOLE 40MG TAB (PROTONIX) PO SCH ×2 (09:30→21:16)
[2022-03-05] MEDS: CYANOCOBALAMIN 500 MCG TAB PO SCH (09:31)
[2022-03-05] MEDS: SENNA 8.6 MG TAB (SENOKOT) PO SCH (09:31)
[2022-03-05] MEDS: VITAMIN D 1,000 INTERNATIONAL UNITS TABLET PO SCH ×2 (09:31→21:17)
[2022-03-05] MEDS: predniSONE 5 MG TAB PO SCH (09:32)
[2022-03-05] MEDS: DOCUSATE SODIUM 100MG CAPSULE PO SCH ×2 (09:32→21:17)
[2022-03-05] MEDS: SALIVA SUBSTITUTE(MOUTHKOTE) BTL MT PRN (09:33)
[2022-03-05] MEDS: POLYVINYL ALCOHOL OPHTH SOLN 15ML (LIQUITEARS) OU SCH ×3 (09:33→21:18)
[2022-03-05] MEDS: FLUTICASONE PROP 0.05% NASAL SPRAY 16 GM (FLONASE) NARES SCH ×2 (09:34→21:18)
[2022-03-05] MEDS: TAMSULOSIN 0.4 MG CAP PO SCH (21:16)
[2022-03-05] MEDS: ROSUVASTATIN 10 MG TAB (CRESTOR) PO SCH (21:16)
[2022-03-05] MEDS: DOXAZOSIN MESYLATE 1 MG TAB PO SCH (21:17)
[2022-03-05] MEDS: traMADol 50 MG TAB PO PRN (21:18)
[2022-03-06] MEDS: PYRIDOSTIGMINE 60MG TABLET PO SCH ×4 (05:16→21:37)
[2022-03-06 06:00] VITALS: BP 150/84
[2022-03-06] MEDS: CYANOCOBALAMIN 500 MCG TAB PO SCH (08:50)
[2022-03-06] MEDS: VITAMIN D 1,000 INTERNATIONAL UNITS TABLET PO SCH ×2 (08:50→21:37)
[2022-03-06] MEDS: PANTOPRAZOLE 40MG TAB (PROTONIX) PO SCH ×2 (08:50→21:38)
[2022-03-06] MEDS: FOLIC ACID 1MG TAB PO SCH (08:50)
[2022-03-06] MEDS: predniSONE 5 MG TAB PO SCH (08:50)
[2022-03-06] MEDS: DOCUSATE SODIUM 100MG CAPSULE PO SCH ×2 (08:50→21:37)
[2022-03-06] MEDS: ASPIRIN 81MG ENTERIC TABLET PO SCH (08:51)
[2022-03-06] MEDS: SENNA 8.6 MG TAB (SENOKOT) PO SCH (08:51)
[2022-03-06] MEDS: **hydrALAZINE** 50 MG TAB PO SCH ×3 (08:51→21:37)
[2022-03-06] MEDS: APIXABAN 5 MG TAB (ELIQUIS) PO SCH ×2 (08:51→21:38)
[2022-03-06] MEDS: MIRALAX *UNIT DOSE* 17GM PACKET PO SCH (09:00)
[2022-03-06] MEDS: FLUTICASONE PROP 0.05% NASAL SPRAY 16 GM (FLONASE) NARES SCH ×2 (09:11→21:39)
[2022-03-06] MEDS: POLYVINYL ALCOHOL OPHTH SOLN 15ML (LIQUITEARS) OU SCH ×3 (09:11→21:38)
[2022-03-06 21:34] VITALS: BP 128/69
[2022-03-06] MEDS: ROSUVASTATIN 10 MG TAB (CRESTOR) PO SCH (21:38)
[2022-03-06] MEDS: TAMSULOSIN 0.4 MG CAP PO SCH (21:38)
[2022-03-06] MEDS: DOXAZOSIN MESYLATE 1 MG TAB PO SCH (21:38)
[2022-03-07] MEDS: PYRIDOSTIGMINE 60MG TABLET PO SCH ×4 (05:08→21:00)
[2022-03-07 05:36] VITALS: BP 131/70
[2022-03-07 08:07] LABS: BASO # 0.1 10^3/uL (0.0-0.2); BASO % 0.9 % (0.0-1.0); EOS # 0.2 10^3/uL (0.0-0.5); EOS % 4.3 % (0.0-3.0); HEMATOCRIT 33.4 % (42.0-52.0); HEMOGLOBIN 10.7 g/dl (13.5-17.5); LYMPH # 1.2 10^3/uL (1.5-5.0); LYMPH % 22.8 % (24.0-44.0); MEAN CORPUSCULAR VOLUME 90.5 fl (80.0-96.0); MONO # 0.6 10^3/uL (0.0-0.8); MONO % 11.3 % (2.0-8.0); NEUTROPHILS # 3.2 10^3/uL (1.5-8.5); NEUTROPHILS % 60.5 % (36.0-66.0); PLATELET COUNT, AUTOMATED 179 10^3/uL (150-450); RED BLOOD COUNT 3.69 10^6/uL (4.30-6.10); WHITE BLOOD COUNT 5.3 10^3/uL (4.0-10.0)
[2022-03-07 08:31] LABS: ALBUMIN 2.8 G/DL (3.2-5.2); ALKALINE PHOSPHATASE 47 U/L (46-116); ALT/SGPT 11 U/L (7.0-40); AST/SGOT 14 U/L (<34); BILIRUBIN,TOTAL 0.6 MG/DL (0.3-1.2); BLOOD UREA NITROGEN 20 MG/DL (9-23); CALCIUM LEVEL 8.3 MG/DL (8.3-10.6); CARBON DIOXIDE LEVEL 25 MMOL/L (20-31); CHLORIDE LEVEL 106 MMOL/L (98-107); CREATININE FOR GFR 1.16 MG/DL (0.70-1.30); GLOMERULAR FILTRATION RATE > 60.0 (>35); GLUCOSE, FASTING 89 MG/DL (74-106); MAGNESIUM LEVEL 1.8 MG/DL (1.8-2.4); POTASSIUM SERUM 3.9 MMOL/L (3.5-5.1); SODIUM LEVEL 137 MMOL/L (136-145); TOTAL PROTEIN 4.9 G/DL (5.7-8.2)
[2022-03-07] MEDS: MIRALAX *UNIT DOSE* 17GM PACKET PO SCH (09:00)
[2022-03-07] MEDS: SENNA 8.6 MG TAB (SENOKOT) PO SCH (09:00)
[2022-03-07] MEDS: **hydrALAZINE** 50 MG TAB PO SCH ×3 (09:00→21:01)
[2022-03-07] MEDS: SENOKOT S TAB PO SCH ×2 (09:00→21:00)
[2022-03-07] MEDS: CYANOCOBALAMIN 500 MCG TAB PO SCH (10:02)
[2022-03-07] MEDS: METHOTREXATE 2.5MG TAB PO SCH (10:03)
[2022-03-07] MEDS: ASPIRIN 81MG ENTERIC TABLET PO SCH (10:03)
[2022-03-07] MEDS: VITAMIN D 1,000 INTERNATIONAL UNITS TABLET PO SCH ×2 (10:03→21:00)
[2022-03-07] MEDS: PANTOPRAZOLE 40MG TAB (PROTONIX) PO SCH ×2 (10:04→21:00)
[2022-03-07] MEDS: APIXABAN 5 MG TAB (ELIQUIS) PO SCH ×2 (10:04→21:00)
[2022-03-07] MEDS: FOLIC ACID 1MG TAB PO SCH (10:04)
[2022-03-07] MEDS: predniSONE 5 MG TAB PO SCH (10:04)
[2022-03-07] MEDS: FLUTICASONE PROP 0.05% NASAL SPRAY 16 GM (FLONASE) NARES SCH ×2 (10:05→21:01)
[2022-03-07] MEDS: POLYVINYL ALCOHOL OPHTH SOLN 15ML (LIQUITEARS) OU SCH ×3 (10:06→21:01)
[2022-03-07 20:55] VITALS: BP 141/69
[2022-03-07] MEDS: TAMSULOSIN 0.4 MG CAP PO SCH (21:00)
[2022-03-07] MEDS: ROSUVASTATIN 10 MG TAB (CRESTOR) PO SCH (21:00)
[2022-03-07] MEDS: DOXAZOSIN MESYLATE 1 MG TAB PO SCH (21:01)
[2022-03-08] MEDS: diphenhydrAMINE 25MG CAP PO PRN ×2 (00:10→23:38)
[2022-03-08] MEDS: traMADol 50 MG TAB PO PRN ×3 (00:11→23:40)
[2022-03-08 05:16] VITALS: BP 135/85
[2022-03-08] MEDS: PYRIDOSTIGMINE 60MG TABLET PO SCH ×4 (05:16→21:40)
[2022-03-08] MEDS: PANTOPRAZOLE 40MG TAB (PROTONIX) PO SCH ×2 (09:04→21:41)
[2022-03-08] MEDS: SENNA 8.6 MG TAB (SENOKOT) PO SCH (09:04)
[2022-03-08] MEDS: VITAMIN D 1,000 INTERNATIONAL UNITS TABLET PO SCH ×2 (09:04→21:41)
[2022-03-08] MEDS: CYANOCOBALAMIN 500 MCG TAB PO SCH (09:04)
[2022-03-08] MEDS: SENOKOT S TAB PO SCH ×2 (09:05→21:40)
[2022-03-08] MEDS: predniSONE 5 MG TAB PO SCH (09:05)
[2022-03-08] MEDS: FOLIC ACID 1MG TAB PO SCH (09:05)
[2022-03-08] MEDS: APIXABAN 5 MG TAB (ELIQUIS) PO SCH ×2 (09:06→21:41)
[2022-03-08] MEDS: POLYVINYL ALCOHOL OPHTH SOLN 15ML (LIQUITEARS) OU SCH ×3 (09:06→21:42)
[2022-03-08] MEDS: **hydrALAZINE** 50 MG TAB PO SCH ×3 (09:06→21:39)
[2022-03-08] MEDS: FLUTICASONE PROP 0.05% NASAL SPRAY 16 GM (FLONASE) NARES SCH ×2 (09:06→21:42)
[2022-03-08] MEDS: ASPIRIN 81MG ENTERIC TABLET PO SCH (09:06)
[2022-03-08] MEDS: MIRALAX *UNIT DOSE* 17GM PACKET PO SCH (09:07)
[2022-03-08] MEDS: DOXAZOSIN MESYLATE 1 MG TAB PO SCH (21:40)
[2022-03-08] MEDS: TAMSULOSIN 0.4 MG CAP PO SCH (21:41)
[2022-03-08] MEDS: ROSUVASTATIN 10 MG TAB (CRESTOR) PO SCH (21:41)
[2022-03-08] MEDS: METOCLOPRAMIDE 5 MG TAB PO PRN (21:54)
[2022-03-09 06:00] VITALS: BP 136/77
[2022-03-09] MEDS: PYRIDOSTIGMINE 60MG TABLET PO SCH ×4 (06:02→21:23)
[2022-03-09] MEDS: VITAMIN D 1,000 INTERNATIONAL UNITS TABLET PO SCH ×2 (08:36→21:22)
[2022-03-09] MEDS: FOLIC ACID 1MG TAB PO SCH (08:36)
[2022-03-09] MEDS: METOCLOPRAMIDE 5 MG TAB PO PRN (08:36)
[2022-03-09] MEDS: predniSONE 5 MG TAB PO SCH (08:37)
[2022-03-09] MEDS: PANTOPRAZOLE 40MG TAB (PROTONIX) PO SCH ×2 (08:37→21:22)
[2022-03-09] MEDS: ASPIRIN 81MG ENTERIC TABLET PO SCH (08:37)
[2022-03-09] MEDS: SENNA 8.6 MG TAB (SENOKOT) PO SCH (08:37)
[2022-03-09] MEDS: APIXABAN 5 MG TAB (ELIQUIS) PO SCH ×2 (08:37→21:24)
[2022-03-09] MEDS: **hydrALAZINE** 50 MG TAB PO SCH ×3 (08:38→20:24)
[2022-03-09] MEDS: SENOKOT S TAB PO SCH ×2 (08:38→21:24)
[2022-03-09] MEDS: CYANOCOBALAMIN 500 MCG TAB PO SCH (08:39)
[2022-03-09] MEDS: SALIVA SUBSTITUTE(MOUTHKOTE) BTL MT PRN (08:40)
[2022-03-09] MEDS: FLUTICASONE PROP 0.05% NASAL SPRAY 16 GM (FLONASE) NARES SCH ×2 (08:40→21:24)
[2022-03-09] MEDS: POLYVINYL ALCOHOL OPHTH SOLN 15ML (LIQUITEARS) OU SCH ×3 (08:40→21:24)
[2022-03-09] MEDS: MIRALAX *UNIT DOSE* 17GM PACKET PO SCH (08:42)
[2022-03-09] MEDS: ROSUVASTATIN 10 MG TAB (CRESTOR) PO SCH (21:22)
[2022-03-09] MEDS: TAMSULOSIN 0.4 MG CAP PO SCH (21:24)
[2022-03-09] MEDS: DOXAZOSIN MESYLATE 1 MG TAB PO SCH (21:26)
[2022-03-10] MEDS: diphenhydrAMINE 25MG CAP PO PRN (01:18)
[2022-03-10] MEDS: METOCLOPRAMIDE 5 MG TAB PO PRN ×2 (01:18→11:26)
[2022-03-10] MEDS: PYRIDOSTIGMINE 60MG TABLET PO SCH ×4 (05:35→20:49)
[2022-03-10 06:00] VITALS: BP 109/85
[2022-03-10] MEDS: CYANOCOBALAMIN 500 MCG TAB PO SCH (08:51)
[2022-03-10] MEDS: ASPIRIN 81MG ENTERIC TABLET PO SCH (08:51)
[2022-03-10] MEDS: VITAMIN D 1,000 INTERNATIONAL UNITS TABLET PO SCH ×2 (08:51→20:49)
[2022-03-10] MEDS: APIXABAN 5 MG TAB (ELIQUIS) PO SCH ×2 (08:51→20:49)
[2022-03-10] MEDS: **hydrALAZINE** 50 MG TAB PO SCH ×3 (08:51→20:48)
[2022-03-10] MEDS: predniSONE 5 MG TAB PO SCH (08:52)
[2022-03-10] MEDS: FOLIC ACID 1MG TAB PO SCH (08:52)
[2022-03-10] MEDS: PANTOPRAZOLE 40MG TAB (PROTONIX) PO SCH ×2 (08:52→20:49)
[2022-03-10] MEDS: SENNA 8.6 MG TAB (SENOKOT) PO SCH (08:53)
[2022-03-10] MEDS: MIRALAX *UNIT DOSE* 17GM PACKET PO SCH (08:53)
[2022-03-10] MEDS: SENOKOT S TAB PO SCH ×2 (08:54→20:49)
[2022-03-10] MEDS: FLUTICASONE PROP 0.05% NASAL SPRAY 16 GM (FLONASE) NARES SCH ×2 (08:54→20:51)
[2022-03-10] MEDS: POLYVINYL ALCOHOL OPHTH SOLN 15ML (LIQUITEARS) OU SCH ×3 (08:54→20:51)
[2022-03-10] MEDS: DOXAZOSIN MESYLATE 1 MG TAB PO SCH (20:48)
[2022-03-10] MEDS: TAMSULOSIN 0.4 MG CAP PO SCH (20:49)
[2022-03-10] MEDS: ROSUVASTATIN 10 MG TAB (CRESTOR) PO SCH (20:49)
[2022-03-11] MEDS: PYRIDOSTIGMINE 60MG TABLET PO SCH ×4 (05:07→23:48)
[2022-03-11 06:00] VITALS: BP 131/75
[2022-03-11] MEDS: CYANOCOBALAMIN 500 MCG TAB PO SCH (09:52)
[2022-03-11] MEDS: ASPIRIN 81MG ENTERIC TABLET PO SCH (09:52)
[2022-03-11] MEDS: PANTOPRAZOLE 40MG TAB (PROTONIX) PO SCH ×2 (09:52→23:49)
[2022-03-11] MEDS: SENNA 8.6 MG TAB (SENOKOT) PO SCH (09:52)
[2022-03-11] MEDS: MIRALAX *UNIT DOSE* 17GM PACKET PO SCH (09:52)
[2022-03-11] MEDS: FOLIC ACID 1MG TAB PO SCH (09:52)
[2022-03-11] MEDS: APIXABAN 5 MG TAB (ELIQUIS) PO SCH ×2 (09:52→23:48)
[2022-03-11] MEDS: SENOKOT S TAB PO SCH ×2 (09:52→23:47)
[2022-03-11] MEDS: predniSONE 5 MG TAB PO SCH (09:53)
[2022-03-11] MEDS: POLYVINYL ALCOHOL OPHTH SOLN 15ML (LIQUITEARS) OU SCH ×3 (09:53→23:51)
[2022-03-11] MEDS: FLUTICASONE PROP 0.05% NASAL SPRAY 16 GM (FLONASE) NARES SCH ×2 (09:54→23:50)
[2022-03-11] MEDS: VITAMIN D 1,000 INTERNATIONAL UNITS TABLET PO SCH ×2 (09:54→23:49)
[2022-03-11] MEDS: **hydrALAZINE** 50 MG TAB PO SCH ×3 (09:58→23:49)
[2022-03-11] MEDS: TAMSULOSIN 0.4 MG CAP PO SCH (23:47)
[2022-03-11] MEDS: ROSUVASTATIN 10 MG TAB (CRESTOR) PO SCH (23:48)
[2022-03-11] MEDS: DOXAZOSIN MESYLATE 1 MG TAB PO SCH (23:50)
[2022-03-12] MEDS: diphenhydrAMINE 25MG CAP PO PRN ×2 (00:08→22:36)
[2022-03-12] MEDS: traMADol 50 MG TAB PO PRN ×2 (00:09→22:37)
[2022-03-12] MEDS: PYRIDOSTIGMINE 60MG TABLET PO SCH ×4 (06:29→22:36)
[2022-03-12 06:34] VITALS: BP 123/72
[2022-03-12] MEDS: MIRALAX *UNIT DOSE* 17GM PACKET PO SCH (08:46)
[2022-03-12] MEDS: VITAMIN D 1,000 INTERNATIONAL UNITS TABLET PO SCH ×2 (08:47→20:40)
[2022-03-12] MEDS: PANTOPRAZOLE 40MG TAB (PROTONIX) PO SCH ×2 (08:47→20:40)
[2022-03-12] MEDS: ASPIRIN 81MG ENTERIC TABLET PO SCH (08:47)
[2022-03-12] MEDS: SENNA 8.6 MG TAB (SENOKOT) PO SCH (08:47)
[2022-03-12] MEDS: FLUTICASONE PROP 0.05% NASAL SPRAY 16 GM (FLONASE) NARES SCH ×2 (08:47→20:40)
[2022-03-12] MEDS: CYANOCOBALAMIN 500 MCG TAB PO SCH (08:47)
[2022-03-12] MEDS: **hydrALAZINE** 50 MG TAB PO SCH ×3 (08:48→20:37)
[2022-03-12] MEDS: APIXABAN 5 MG TAB (ELIQUIS) PO SCH ×2 (08:48→20:40)
[2022-03-12] MEDS: predniSONE 5 MG TAB PO SCH (08:48)
[2022-03-12] MEDS: FOLIC ACID 1MG TAB PO SCH (08:48)
[2022-03-12] MEDS: SENOKOT S TAB PO SCH ×2 (08:48→20:40)
[2022-03-12] MEDS: POLYVINYL ALCOHOL OPHTH SOLN 15ML (LIQUITEARS) OU SCH ×3 (08:49→20:42)
[2022-03-12 17:20] VITALS: BP 118/60
[2022-03-12] MEDS: ROSUVASTATIN 10 MG TAB (CRESTOR) PO SCH (20:39)
[2022-03-12] MEDS: TAMSULOSIN 0.4 MG CAP PO SCH (20:40)
[2022-03-12 20:43] VITALS: BP 112/52
[2022-03-12] MEDS: DOXAZOSIN MESYLATE 1 MG TAB PO SCH (21:00)
[2022-03-13 03:36] VITALS: BP 128/71
[2022-03-13] MEDS: PYRIDOSTIGMINE 60MG TABLET PO SCH ×4 (05:34→21:04)
[2022-03-13] MEDS: POLYVINYL ALCOHOL OPHTH SOLN 15ML (LIQUITEARS) OU SCH ×3 (08:57→21:05)
[2022-03-13] MEDS: APIXABAN 5 MG TAB (ELIQUIS) PO SCH ×2 (08:57→21:04)
[2022-03-13] MEDS: MIRALAX *UNIT DOSE* 17GM PACKET PO SCH (08:57)
[2022-03-13] MEDS: SENOKOT S TAB PO SCH ×2 (08:57→21:04)
[2022-03-13] MEDS: FLUTICASONE PROP 0.05% NASAL SPRAY 16 GM (FLONASE) NARES SCH ×2 (08:57→21:05)
[2022-03-13] MEDS: VITAMIN D 1,000 INTERNATIONAL UNITS TABLET PO SCH ×2 (08:58→21:04)
[2022-03-13] MEDS: **hydrALAZINE** 50 MG TAB PO SCH (08:58)
[2022-03-13] MEDS: ASPIRIN 81MG ENTERIC TABLET PO SCH (08:58)
[2022-03-13] MEDS: PANTOPRAZOLE 40MG TAB (PROTONIX) PO SCH ×2 (08:58→21:04)
[2022-03-13] MEDS: predniSONE 5 MG TAB PO SCH (08:58)
[2022-03-13] MEDS: FOLIC ACID 1MG TAB PO SCH (08:58)
[2022-03-13] MEDS: SENNA 8.6 MG TAB (SENOKOT) PO SCH (08:58)
[2022-03-13] MEDS: CYANOCOBALAMIN 500 MCG TAB PO SCH (08:58)
[2022-03-13] MEDS: ROSUVASTATIN 10 MG TAB (CRESTOR) PO SCH (21:04)
[2022-03-13] MEDS: TAMSULOSIN 0.4 MG CAP PO SCH (21:04)
[2022-03-13] MEDS: diphenhydrAMINE 25MG CAP PO PRN (22:46)
[2022-03-13] MEDS: traMADol 50 MG TAB PO PRN (22:46)
[2022-03-14 06:48] VITALS: BP 128/87
[2022-03-14] MEDS: PYRIDOSTIGMINE 60MG TABLET PO SCH ×4 (06:48→21:43)
[2022-03-14] MEDS: MIRALAX *UNIT DOSE* 17GM PACKET PO SCH (09:00)
[2022-03-14] MEDS: FOLIC ACID 1MG TAB PO SCH (09:06)
[2022-03-14] MEDS: SENNA 8.6 MG TAB (SENOKOT) PO SCH (09:06)
[2022-03-14] MEDS: CYANOCOBALAMIN 500 MCG TAB PO SCH (09:06)
[2022-03-14] MEDS: ASPIRIN 81MG ENTERIC TABLET PO SCH (09:06)
[2022-03-14] MEDS: SENOKOT S TAB PO SCH ×2 (09:06→21:44)
[2022-03-14] MEDS: APIXABAN 5 MG TAB (ELIQUIS) PO SCH ×2 (09:06→21:44)
[2022-03-14] MEDS: VITAMIN D 1,000 INTERNATIONAL UNITS TABLET PO SCH ×2 (09:06→21:43)
[2022-03-14] MEDS: PANTOPRAZOLE 40MG TAB (PROTONIX) PO SCH ×2 (09:07→21:44)
[2022-03-14] MEDS: METHOTREXATE 2.5MG TAB PO SCH (09:07)
[2022-03-14] MEDS: predniSONE 5 MG TAB PO SCH (09:08)
[2022-03-14] MEDS: FLUTICASONE PROP 0.05% NASAL SPRAY 16 GM (FLONASE) NARES SCH ×2 (09:08→21:44)
[2022-03-14] MEDS: POLYVINYL ALCOHOL OPHTH SOLN 15ML (LIQUITEARS) OU SCH ×3 (09:08→21:44)
[2022-03-14] MEDS: TAMSULOSIN 0.4 MG CAP PO SCH (21:44)
[2022-03-14] MEDS: ROSUVASTATIN 10 MG TAB (CRESTOR) PO SCH (21:44)
[2022-03-15] MEDS: PYRIDOSTIGMINE 60MG TABLET PO SCH ×4 (05:28→22:08)
[2022-03-15 06:00] VITALS: BP 128/86
[2022-03-15] MEDS: MIRALAX *UNIT DOSE* 17GM PACKET PO SCH (09:00)
[2022-03-15] MEDS: FLUTICASONE PROP 0.05% NASAL SPRAY 16 GM (FLONASE) NARES SCH ×2 (09:18→22:08)
[2022-03-15] MEDS: ASPIRIN 81MG ENTERIC TABLET PO SCH (09:18)
[2022-03-15] MEDS: CYANOCOBALAMIN 500 MCG TAB PO SCH (09:18)
[2022-03-15] MEDS: POLYVINYL ALCOHOL OPHTH SOLN 15ML (LIQUITEARS) OU SCH ×3 (09:18→22:08)
[2022-03-15] MEDS: SENOKOT S TAB PO SCH ×2 (09:19→22:07)
[2022-03-15] MEDS: FOLIC ACID 1MG TAB PO SCH (09:19)
[2022-03-15] MEDS: APIXABAN 5 MG TAB (ELIQUIS) PO SCH ×2 (09:19→22:08)
[2022-03-15] MEDS: PANTOPRAZOLE 40MG TAB (PROTONIX) PO SCH ×2 (09:19→22:08)
[2022-03-15] MEDS: predniSONE 5 MG TAB PO SCH (09:25)
[2022-03-15] MEDS: VITAMIN D 1,000 INTERNATIONAL UNITS TABLET PO SCH ×2 (09:25→22:07)
[2022-03-15] MEDS: SENNA 8.6 MG TAB (SENOKOT) PO SCH (09:25)
[2022-03-15] MEDS: TAMSULOSIN 0.4 MG CAP PO SCH (22:06)
[2022-03-15] MEDS: ROSUVASTATIN 10 MG TAB (CRESTOR) PO SCH (22:08)
[2022-03-15] MEDS: diphenhydrAMINE 25MG CAP PO PRN (23:25)
[2022-03-15] MEDS: traMADol 50 MG TAB PO PRN (23:25)
[2022-03-16] MEDS: PYRIDOSTIGMINE 60MG TABLET PO SCH ×4 (05:50→21:54)
[2022-03-16 06:00] VITALS: BP 145/74
[2022-03-16] MEDS: POLYVINYL ALCOHOL OPHTH SOLN 15ML (LIQUITEARS) OU SCH ×3 (08:51→21:55)
[2022-03-16] MEDS: ASPIRIN 81MG ENTERIC TABLET PO SCH (08:52)
[2022-03-16] MEDS: predniSONE 5 MG TAB PO SCH (08:52)
[2022-03-16] MEDS: PANTOPRAZOLE 40MG TAB (PROTONIX) PO SCH ×2 (08:52→21:55)
[2022-03-16] MEDS: FLUTICASONE PROP 0.05% NASAL SPRAY 16 GM (FLONASE) NARES SCH ×2 (08:52→21:55)
[2022-03-16] MEDS: CYANOCOBALAMIN 500 MCG TAB PO SCH (08:52)
[2022-03-16] MEDS: VITAMIN D 1,000 INTERNATIONAL UNITS TABLET PO SCH ×2 (08:52→21:55)
[2022-03-16] MEDS: APIXABAN 5 MG TAB (ELIQUIS) PO SCH ×2 (08:52→21:55)
[2022-03-16] MEDS: SENNA 8.6 MG TAB (SENOKOT) PO SCH (08:52)
[2022-03-16] MEDS: FOLIC ACID 1MG TAB PO SCH (08:52)
[2022-03-16] MEDS: SENOKOT S TAB PO SCH ×2 (08:53→21:55)
[2022-03-16] MEDS: MIRALAX *UNIT DOSE* 17GM PACKET PO SCH (08:53)
[2022-03-16 15:21] VITALS: BP 113/59
[2022-03-16] MEDS: ROSUVASTATIN 10 MG TAB (CRESTOR) PO SCH (21:54)
[2022-03-16] MEDS: TAMSULOSIN 0.4 MG CAP PO SCH (21:55)
[2022-03-16] MEDS: diphenhydrAMINE 25MG CAP PO PRN (23:36)
[2022-03-17 05:21] VITALS: BP 146/85
[2022-03-17] MEDS: PYRIDOSTIGMINE 60MG TABLET PO SCH ×4 (05:29→22:47)
[2022-03-17] MEDS: ASPIRIN 81MG ENTERIC TABLET PO SCH (07:51)
[2022-03-17] MEDS: POLYVINYL ALCOHOL OPHTH SOLN 15ML (LIQUITEARS) OU SCH ×3 (07:51→19:55)
[2022-03-17] MEDS: PANTOPRAZOLE 40MG TAB (PROTONIX) PO SCH ×2 (07:51→19:54)
[2022-03-17] MEDS: FLUTICASONE PROP 0.05% NASAL SPRAY 16 GM (FLONASE) NARES SCH ×2 (07:51→19:54)
[2022-03-17] MEDS: SENNA 8.6 MG TAB (SENOKOT) PO SCH (07:52)
[2022-03-17] MEDS: predniSONE 5 MG TAB PO SCH (07:52)
[2022-03-17] MEDS: APIXABAN 5 MG TAB (ELIQUIS) PO SCH ×2 (07:52→19:53)
[2022-03-17] MEDS: MIRALAX *UNIT DOSE* 17GM PACKET PO SCH (07:53)
[2022-03-17] MEDS: CYANOCOBALAMIN 500 MCG TAB PO SCH (07:54)
[2022-03-17] MEDS: SENOKOT S TAB PO SCH ×2 (07:54→19:52)
[2022-03-17] MEDS: VITAMIN D 1,000 INTERNATIONAL UNITS TABLET PO SCH ×2 (07:54→19:53)
[2022-03-17] MEDS: FOLIC ACID 1MG TAB PO SCH (07:54)
[2022-03-17] MEDS: SODIUM CHLORIDE NASAL 0.65% SPRAY BTL (OCEAN) PRN (17:17)
[2022-03-17] MEDS: TAMSULOSIN 0.4 MG CAP PO SCH (19:53)
[2022-03-17] MEDS: ROSUVASTATIN 10 MG TAB (CRESTOR) PO SCH (19:54)
[2022-03-17] MEDS: diphenhydrAMINE 25MG CAP PO PRN (22:47)
[2022-03-18 04:40] VITALS: BP 132/66
[2022-03-18] MEDS: PYRIDOSTIGMINE 60MG TABLET PO SCH ×4 (05:37→21:59)
[2022-03-18 08:30] VITALS: BP 133/67
[2022-03-18] MEDS: SENNA 8.6 MG TAB (SENOKOT) PO SCH (09:00)
[2022-03-18] MEDS: MIRALAX *UNIT DOSE* 17GM PACKET PO SCH (09:00)
[2022-03-18] MEDS: SENOKOT S TAB PO SCH ×2 (09:00→22:01)
[2022-03-18] MEDS: FOLIC ACID 1MG TAB PO SCH (09:42)
[2022-03-18] MEDS: VITAMIN D 1,000 INTERNATIONAL UNITS TABLET PO SCH ×2 (09:42→21:59)
[2022-03-18] MEDS: ASPIRIN 81MG ENTERIC TABLET PO SCH (09:42)
[2022-03-18] MEDS: PANTOPRAZOLE 40MG TAB (PROTONIX) PO SCH ×2 (09:42→21:59)
[2022-03-18] MEDS: CYANOCOBALAMIN 500 MCG TAB PO SCH (09:42)
[2022-03-18] MEDS: APIXABAN 5 MG TAB (ELIQUIS) PO SCH ×2 (09:42→22:01)
[2022-03-18] MEDS: predniSONE 5 MG TAB PO SCH (09:43)
[2022-03-18] MEDS: FLUTICASONE PROP 0.05% NASAL SPRAY 16 GM (FLONASE) NARES SCH ×2 (09:44→22:00)
[2022-03-18] MEDS: POLYVINYL ALCOHOL OPHTH SOLN 15ML (LIQUITEARS) OU SCH ×3 (09:44→22:00)
[2022-03-18] MEDS: TAMSULOSIN 0.4 MG CAP PO SCH (21:59)
[2022-03-18] MEDS: ROSUVASTATIN 10 MG TAB (CRESTOR) PO SCH (22:00)
[2022-03-19] MEDS: diphenhydrAMINE 25MG CAP PO PRN ×2 (00:20→22:24)
[2022-03-19] MEDS: PYRIDOSTIGMINE 60MG TABLET PO SCH ×4 (05:59→21:16)
[2022-03-19 06:23] VITALS: BP 137/79
[2022-03-19] MEDS: MIRALAX *UNIT DOSE* 17GM PACKET PO SCH ×2 (08:22→09:00)
[2022-03-19] MEDS: FOLIC ACID 1MG TAB PO SCH (08:22)
[2022-03-19] MEDS: VITAMIN D 1,000 INTERNATIONAL UNITS TABLET PO SCH ×2 (08:22→21:16)
[2022-03-19] MEDS: PANTOPRAZOLE 40MG TAB (PROTONIX) PO SCH ×2 (08:22→21:16)
[2022-03-19] MEDS: SENNA 8.6 MG TAB (SENOKOT) PO SCH (08:23)
[2022-03-19] MEDS: SENOKOT S TAB PO SCH ×2 (08:23→21:16)
[2022-03-19] MEDS: APIXABAN 5 MG TAB (ELIQUIS) PO SCH ×2 (08:23→21:16)
[2022-03-19] MEDS: ASPIRIN 81MG ENTERIC TABLET PO SCH (08:23)
[2022-03-19] MEDS: predniSONE 5 MG TAB PO SCH (08:23)
[2022-03-19] MEDS: CYANOCOBALAMIN 500 MCG TAB PO SCH (08:23)
[2022-03-19] MEDS: POLYVINYL ALCOHOL OPHTH SOLN 15ML (LIQUITEARS) OU SCH ×3 (08:24→21:17)
[2022-03-19] MEDS: FLUTICASONE PROP 0.05% NASAL SPRAY 16 GM (FLONASE) NARES SCH ×2 (08:24→21:17)
[2022-03-19] MEDS: TAMSULOSIN 0.4 MG CAP PO SCH (21:16)
[2022-03-19] MEDS: ROSUVASTATIN 10 MG TAB (CRESTOR) PO SCH (21:16)
[2022-03-20] MEDS: PYRIDOSTIGMINE 60MG TABLET PO SCH ×4 (05:15→21:37)
[2022-03-20 06:00] VITALS: BP 118/69
[2022-03-20] MEDS: predniSONE 5 MG TAB PO SCH (08:46)
[2022-03-20] MEDS: FOLIC ACID 1MG TAB PO SCH (08:46)
[2022-03-20] MEDS: VITAMIN D 1,000 INTERNATIONAL UNITS TABLET PO SCH ×2 (08:46→21:28)
[2022-03-20] MEDS: ASPIRIN 81MG ENTERIC TABLET PO SCH (08:46)
[2022-03-20] MEDS: APIXABAN 5 MG TAB (ELIQUIS) PO SCH ×2 (08:46→21:29)
[2022-03-20] MEDS: CYANOCOBALAMIN 500 MCG TAB PO SCH (08:46)
[2022-03-20] MEDS: SENNA 8.6 MG TAB (SENOKOT) PO SCH (08:47)
[2022-03-20] MEDS: PANTOPRAZOLE 40MG TAB (PROTONIX) PO SCH ×2 (08:47→21:28)
[2022-03-20] MEDS: SENOKOT S TAB PO SCH ×3 (08:47→21:29)
[2022-03-20] MEDS: MIRALAX *UNIT DOSE* 17GM PACKET PO SCH (08:47)
[2022-03-20] MEDS: FLUTICASONE PROP 0.05% NASAL SPRAY 16 GM (FLONASE) NARES SCH ×2 (08:47→21:29)
[2022-03-20] MEDS: POLYVINYL ALCOHOL OPHTH SOLN 15ML (LIQUITEARS) OU SCH ×3 (08:47→21:29)
[2022-03-20] MEDS: ROSUVASTATIN 10 MG TAB (CRESTOR) PO SCH (21:28)
[2022-03-20] MEDS: TAMSULOSIN 0.4 MG CAP PO SCH (21:37)
[2022-03-20] MEDS: diphenhydrAMINE 25MG CAP PO PRN (21:38)
[2022-03-21] MEDS: PYRIDOSTIGMINE 60MG TABLET PO SCH ×4 (05:19→21:10)
[2022-03-21 06:00] VITALS: BP 168/80
[2022-03-21 07:25] VITALS: BP 120/68
[2022-03-21 09:00] VITALS: BP 123/68
[2022-03-21] MEDS: SENOKOT S TAB PO SCH ×3 (09:00→21:11)
[2022-03-21] MEDS: SENNA 8.6 MG TAB (SENOKOT) PO SCH ×2 (09:00→09:50)
[2022-03-21] MEDS: MIRALAX *UNIT DOSE* 17GM PACKET PO SCH ×2 (09:00→09:56)
[2022-03-21] MEDS: ASPIRIN 81MG ENTERIC TABLET PO SCH (09:51)
[2022-03-21] MEDS: PANTOPRAZOLE 40MG TAB (PROTONIX) PO SCH ×2 (09:51→21:11)
[2022-03-21] MEDS: METHOTREXATE 2.5MG TAB PO SCH (09:52)
[2022-03-21] MEDS: VITAMIN D 1,000 INTERNATIONAL UNITS TABLET PO SCH ×2 (09:54→21:10)
[2022-03-21] MEDS: APIXABAN 5 MG TAB (ELIQUIS) PO SCH ×2 (09:54→21:10)
[2022-03-21] MEDS: CYANOCOBALAMIN 500 MCG TAB PO SCH (09:54)
[2022-03-21] MEDS: predniSONE 5 MG TAB PO SCH (09:55)
[2022-03-21] MEDS: FOLIC ACID 1MG TAB PO SCH (09:56)
[2022-03-21] MEDS: FLUTICASONE PROP 0.05% NASAL SPRAY 16 GM (FLONASE) NARES SCH ×2 (09:58→21:11)
[2022-03-21] MEDS: POLYVINYL ALCOHOL OPHTH SOLN 15ML (LIQUITEARS) OU SCH ×3 (09:58→21:12)
[2022-03-21 12:00] VITALS: BP 123/68
[2022-03-21] MEDS: diphenhydrAMINE 25MG CAP PO PRN (21:11)
[2022-03-21] MEDS: ROSUVASTATIN 10 MG TAB (CRESTOR) PO SCH (21:11)
[2022-03-21] MEDS: TAMSULOSIN 0.4 MG CAP PO SCH (21:11)
[2022-03-22] MEDS: PYRIDOSTIGMINE 60MG TABLET PO SCH ×4 (05:42→21:23)
[2022-03-22 06:00] VITALS: BP 123/71
[2022-03-22] MEDS: VITAMIN D 1,000 INTERNATIONAL UNITS TABLET PO SCH ×2 (08:05→21:16)
[2022-03-22] MEDS: CYANOCOBALAMIN 500 MCG TAB PO SCH (08:05)
[2022-03-22] MEDS: PANTOPRAZOLE 40MG TAB (PROTONIX) PO SCH ×2 (08:05→21:17)
[2022-03-22] MEDS: MIRALAX *UNIT DOSE* 17GM PACKET PO SCH (08:05)
[2022-03-22] MEDS: SENNA 8.6 MG TAB (SENOKOT) PO SCH (08:06)
[2022-03-22] MEDS: ASPIRIN 81MG ENTERIC TABLET PO SCH (08:06)
[2022-03-22] MEDS: POLYVINYL ALCOHOL OPHTH SOLN 15ML (LIQUITEARS) OU SCH ×3 (08:06→21:18)
[2022-03-22] MEDS: FOLIC ACID 1MG TAB PO SCH (08:06)
[2022-03-22] MEDS: FLUTICASONE PROP 0.05% NASAL SPRAY 16 GM (FLONASE) NARES SCH ×2 (08:06→21:17)
[2022-03-22] MEDS: APIXABAN 5 MG TAB (ELIQUIS) PO SCH ×2 (08:06→21:16)
[2022-03-22] MEDS: SENOKOT S TAB PO SCH ×2 (08:06→21:17)
[2022-03-22] MEDS: predniSONE 5 MG TAB PO SCH (08:06)
[2022-03-22] MEDS: TAMSULOSIN 0.4 MG CAP PO SCH (21:17)
[2022-03-22] MEDS: ROSUVASTATIN 10 MG TAB (CRESTOR) PO SCH (21:17)
[2022-03-23] MEDS: PYRIDOSTIGMINE 60MG TABLET PO SCH ×4 (05:38→21:42)
[2022-03-23 05:58] VITALS: BP 136/87
[2022-03-23] MEDS: SENOKOT S TAB PO SCH ×2 (08:35→21:42)
[2022-03-23] MEDS: VITAMIN D 1,000 INTERNATIONAL UNITS TABLET PO SCH ×2 (08:35→21:42)
[2022-03-23] MEDS: SENNA 8.6 MG TAB (SENOKOT) PO SCH (08:35)
[2022-03-23] MEDS: ASPIRIN 81MG ENTERIC TABLET PO SCH (08:35)
[2022-03-23] MEDS: CYANOCOBALAMIN 500 MCG TAB PO SCH (08:35)
[2022-03-23] MEDS: predniSONE 5 MG TAB PO SCH (08:36)
[2022-03-23] MEDS: FOLIC ACID 1MG TAB PO SCH (08:36)
[2022-03-23] MEDS: APIXABAN 5 MG TAB (ELIQUIS) PO SCH ×2 (08:36→21:42)
[2022-03-23] MEDS: MIRALAX *UNIT DOSE* 17GM PACKET PO SCH (08:36)
[2022-03-23] MEDS: FLUTICASONE PROP 0.05% NASAL SPRAY 16 GM (FLONASE) NARES SCH ×2 (08:37→21:42)
[2022-03-23] MEDS: POLYVINYL ALCOHOL OPHTH SOLN 15ML (LIQUITEARS) OU SCH ×3 (08:37→21:42)
[2022-03-23] MEDS: PANTOPRAZOLE 40MG TAB (PROTONIX) PO SCH ×2 (08:38→21:42)
[2022-03-23] MEDS: ROSUVASTATIN 10 MG TAB (CRESTOR) PO SCH (21:41)
[2022-03-23] MEDS: TAMSULOSIN 0.4 MG CAP PO SCH (21:41)
[2022-03-23 22:00] VITALS: BP 132/77
[2022-03-23] MEDS: diphenhydrAMINE 25MG CAP PO PRN (23:12)
[2022-03-24] MEDS: PYRIDOSTIGMINE 60MG TABLET PO SCH ×4 (05:32→20:57)
[2022-03-24 06:00] VITALS: BP 134/82
[2022-03-24] MEDS: ASPIRIN 81MG ENTERIC TABLET PO SCH (08:09)
[2022-03-24] MEDS: VITAMIN D 1,000 INTERNATIONAL UNITS TABLET PO SCH ×2 (08:09→20:56)
[2022-03-24] MEDS: PANTOPRAZOLE 40MG TAB (PROTONIX) PO SCH ×2 (08:09→20:57)
[2022-03-24] MEDS: CYANOCOBALAMIN 500 MCG TAB PO SCH (08:10)
[2022-03-24] MEDS: FOLIC ACID 1MG TAB PO SCH (08:10)
[2022-03-24] MEDS: predniSONE 5 MG TAB PO SCH (08:10)
[2022-03-24] MEDS: SENNA 8.6 MG TAB (SENOKOT) PO SCH (08:10)
[2022-03-24] MEDS: APIXABAN 5 MG TAB (ELIQUIS) PO SCH ×2 (08:10→20:56)
[2022-03-24] MEDS: POLYVINYL ALCOHOL OPHTH SOLN 15ML (LIQUITEARS) OU SCH ×3 (08:11→20:58)
[2022-03-24] MEDS: SENOKOT S TAB PO SCH ×2 (08:11→20:57)
[2022-03-24] MEDS: MIRALAX *UNIT DOSE* 17GM PACKET PO SCH (08:11)
[2022-03-24] MEDS: FLUTICASONE PROP 0.05% NASAL SPRAY 16 GM (FLONASE) NARES SCH ×2 (08:11→20:58)
[2022-03-24] MEDS: TAMSULOSIN 0.4 MG CAP PO SCH (20:56)
[2022-03-24] MEDS: diphenhydrAMINE 25MG CAP PO PRN (20:57)
[2022-03-24] MEDS: ROSUVASTATIN 10 MG TAB (CRESTOR) PO SCH (20:57)
[2022-03-25] MEDS: PYRIDOSTIGMINE 60MG TABLET PO SCH ×4 (05:09→22:18)
[2022-03-25 06:00] VITALS: BP 134/82
[2022-03-25 08:00] VITALS: BP 132/67
[2022-03-25] MEDS: PANTOPRAZOLE 40MG TAB (PROTONIX) PO SCH ×2 (08:34→22:19)
[2022-03-25] MEDS: CYANOCOBALAMIN 500 MCG TAB PO SCH (08:34)
[2022-03-25] MEDS: ASPIRIN 81MG ENTERIC TABLET PO SCH (08:36)
[2022-03-25] MEDS: APIXABAN 5 MG TAB (ELIQUIS) PO SCH ×2 (08:36→22:18)
[2022-03-25] MEDS: VITAMIN D 1,000 INTERNATIONAL UNITS TABLET PO SCH ×2 (08:36→22:18)
[2022-03-25] MEDS: predniSONE 5 MG TAB PO SCH (08:36)
[2022-03-25] MEDS: SENNA 8.6 MG TAB (SENOKOT) PO SCH (08:37)
[2022-03-25] MEDS: FOLIC ACID 1MG TAB PO SCH (08:37)
[2022-03-25] MEDS: MIRALAX *UNIT DOSE* 17GM PACKET PO SCH (08:37)
[2022-03-25] MEDS: SENOKOT S TAB PO SCH ×2 (08:38→22:18)
[2022-03-25] MEDS: POLYVINYL ALCOHOL OPHTH SOLN 15ML (LIQUITEARS) OU SCH ×3 (08:39→22:20)
[2022-03-25] MEDS: FLUTICASONE PROP 0.05% NASAL SPRAY 16 GM (FLONASE) NARES SCH ×2 (08:39→22:20)
[2022-03-25] MEDS: diphenhydrAMINE 25MG CAP PO PRN (22:18)
[2022-03-25] MEDS: TAMSULOSIN 0.4 MG CAP PO SCH (22:18)
[2022-03-25] MEDS: ROSUVASTATIN 10 MG TAB (CRESTOR) PO SCH (22:19)
[2022-03-26] MEDS: PYRIDOSTIGMINE 60MG TABLET PO SCH ×4 (05:25→21:08)
[2022-03-26 06:00] VITALS: BP 127/82
[2022-03-26] MEDS: MIRALAX *UNIT DOSE* 17GM PACKET PO SCH ×2 (09:00→09:04)
[2022-03-26] MEDS: CYANOCOBALAMIN 500 MCG TAB PO SCH (09:04)
[2022-03-26] MEDS: ASPIRIN 81MG ENTERIC TABLET PO SCH (09:04)
[2022-03-26] MEDS: FOLIC ACID 1MG TAB PO SCH (09:05)
[2022-03-26] MEDS: FLUTICASONE PROP 0.05% NASAL SPRAY 16 GM (FLONASE) NARES SCH ×2 (09:05→20:55)
[2022-03-26] MEDS: predniSONE 5 MG TAB PO SCH (09:05)
[2022-03-26] MEDS: SENNA 8.6 MG TAB (SENOKOT) PO SCH (09:05)
[2022-03-26] MEDS: PANTOPRAZOLE 40MG TAB (PROTONIX) PO SCH ×2 (09:05→20:56)
[2022-03-26] MEDS: SENOKOT S TAB PO SCH ×2 (09:05→20:56)
[2022-03-26] MEDS: VITAMIN D 1,000 INTERNATIONAL UNITS TABLET PO SCH ×2 (09:05→20:57)
[2022-03-26] MEDS: APIXABAN 5 MG TAB (ELIQUIS) PO SCH ×2 (09:05→20:56)
[2022-03-26] MEDS: SODIUM CHLORIDE NASAL 0.65% SPRAY BTL (OCEAN) PRN (09:06)
[2022-03-26] MEDS: POLYVINYL ALCOHOL OPHTH SOLN 15ML (LIQUITEARS) OU SCH ×3 (09:06→21:01)
[2022-03-26] MEDS: ROSUVASTATIN 10 MG TAB (CRESTOR) PO SCH (20:56)
[2022-03-26] MEDS: diphenhydrAMINE 25MG CAP PO PRN (20:56)
[2022-03-26] MEDS: TAMSULOSIN 0.4 MG CAP PO SCH (20:56)
[2022-03-27] MEDS: PYRIDOSTIGMINE 60MG TABLET PO SCH ×4 (05:33→21:46)
[2022-03-27 06:00] VITALS: BP 135/69
[2022-03-27] MEDS: MIRALAX *UNIT DOSE* 17GM PACKET PO SCH (09:00)
[2022-03-27] MEDS: ASPIRIN 81MG ENTERIC TABLET PO SCH (09:48)
[2022-03-27] MEDS: VITAMIN D 1,000 INTERNATIONAL UNITS TABLET PO SCH ×2 (09:48→21:46)
[2022-03-27] MEDS: APIXABAN 5 MG TAB (ELIQUIS) PO SCH ×2 (09:48→21:46)
[2022-03-27] MEDS: PANTOPRAZOLE 40MG TAB (PROTONIX) PO SCH ×2 (09:48→21:45)
[2022-03-27] MEDS: SENOKOT S TAB PO SCH ×2 (09:49→21:45)
[2022-03-27] MEDS: CYANOCOBALAMIN 500 MCG TAB PO SCH (09:49)
[2022-03-27] MEDS: SENNA 8.6 MG TAB (SENOKOT) PO SCH (09:49)
[2022-03-27] MEDS: FOLIC ACID 1MG TAB PO SCH (09:50)
[2022-03-27] MEDS: POLYVINYL ALCOHOL OPHTH SOLN 15ML (LIQUITEARS) OU SCH ×3 (09:50→21:46)
[2022-03-27] MEDS: predniSONE 5 MG TAB PO SCH (09:50)
[2022-03-27] MEDS: FLUTICASONE PROP 0.05% NASAL SPRAY 16 GM (FLONASE) NARES SCH ×2 (09:50→21:46)
[2022-03-27] MEDS: ROSUVASTATIN 10 MG TAB (CRESTOR) PO SCH (21:45)
[2022-03-27] MEDS: TAMSULOSIN 0.4 MG CAP PO SCH (21:46)
[2022-03-28 05:52] VITALS: BP 136/80
[2022-03-28] MEDS: PYRIDOSTIGMINE 60MG TABLET PO SCH ×4 (05:58→20:58)
[2022-03-28] MEDS: VITAMIN D 1,000 INTERNATIONAL UNITS TABLET PO SCH ×2 (08:27→21:00)
[2022-03-28] MEDS: APIXABAN 5 MG TAB (ELIQUIS) PO SCH ×2 (08:27→20:58)
[2022-03-28] MEDS: FOLIC ACID 1MG TAB PO SCH (08:27)
[2022-03-28] MEDS: PANTOPRAZOLE 40MG TAB (PROTONIX) PO SCH ×2 (08:27→20:59)
[2022-03-28] MEDS: CYANOCOBALAMIN 500 MCG TAB PO SCH (08:27)
[2022-03-28] MEDS: METHOTREXATE 2.5MG TAB PO SCH (08:27)
[2022-03-28] MEDS: SENNA 8.6 MG TAB (SENOKOT) PO SCH (08:27)
[2022-03-28] MEDS: ASPIRIN 81MG ENTERIC TABLET PO SCH (08:27)
[2022-03-28] MEDS: FLUTICASONE PROP 0.05% NASAL SPRAY 16 GM (FLONASE) NARES SCH ×3 (08:28→21:00)
[2022-03-28] MEDS: POLYVINYL ALCOHOL OPHTH SOLN 15ML (LIQUITEARS) OU SCH ×3 (08:28→21:01)
[2022-03-28] MEDS: SENOKOT S TAB PO SCH ×2 (08:28→20:59)
[2022-03-28] MEDS: MIRALAX *UNIT DOSE* 17GM PACKET PO SCH (08:29)
[2022-03-28] MEDS: predniSONE 5 MG TAB PO SCH (08:29)
[2022-03-28] MEDS: ROSUVASTATIN 10 MG TAB (CRESTOR) PO SCH (20:58)
[2022-03-28] MEDS: TAMSULOSIN 0.4 MG CAP PO SCH (20:58)
[2022-03-28] MEDS: SODIUM CHLORIDE NASAL 0.65% SPRAY BTL (OCEAN) PRN (21:01)
[2022-03-28] MEDS: diphenhydrAMINE 25MG CAP PO PRN (21:07)
[2022-03-29] MEDS: PYRIDOSTIGMINE 60MG TABLET PO SCH ×4 (05:13→20:32)
[2022-03-29 05:37] VITALS: BP 133/77
[2022-03-29] MEDS: VITAMIN D 1,000 INTERNATIONAL UNITS TABLET PO SCH ×2 (09:38→20:32)
[2022-03-29] MEDS: SENOKOT S TAB PO SCH ×2 (09:39→20:32)
[2022-03-29] MEDS: CYANOCOBALAMIN 500 MCG TAB PO SCH (09:39)
[2022-03-29] MEDS: ASPIRIN 81MG ENTERIC TABLET PO SCH (09:39)
[2022-03-29] MEDS: MIRALAX *UNIT DOSE* 17GM PACKET PO SCH (09:39)
[2022-03-29] MEDS: APIXABAN 5 MG TAB (ELIQUIS) PO SCH ×2 (09:39→20:32)
[2022-03-29] MEDS: predniSONE 5 MG TAB PO SCH (09:39)
[2022-03-29] MEDS: PANTOPRAZOLE 40MG TAB (PROTONIX) PO SCH ×2 (09:39→20:32)
[2022-03-29] MEDS: SENNA 8.6 MG TAB (SENOKOT) PO SCH (09:39)
[2022-03-29] MEDS: FOLIC ACID 1MG TAB PO SCH (09:39)
[2022-03-29] MEDS: POLYVINYL ALCOHOL OPHTH SOLN 15ML (LIQUITEARS) OU SCH ×3 (09:40→20:33)
[2022-03-29] MEDS: FLUTICASONE PROP 0.05% NASAL SPRAY 16 GM (FLONASE) NARES SCH ×2 (09:40→20:32)
[2022-03-29] MEDS: TAMSULOSIN 0.4 MG CAP PO SCH (20:32)
[2022-03-29] MEDS: ROSUVASTATIN 10 MG TAB (CRESTOR) PO SCH (20:32)
[2022-03-29] MEDS: diphenhydrAMINE 25MG CAP PO PRN (20:44)
[2022-03-30 06:00] VITALS: BP 131/73
[2022-03-30] MEDS: PYRIDOSTIGMINE 60MG TABLET PO SCH ×4 (06:26→23:13)
[2022-03-30] MEDS: predniSONE 5 MG TAB PO SCH (08:50)
[2022-03-30] MEDS: MIRALAX *UNIT DOSE* 17GM PACKET PO SCH (08:50)
[2022-03-30] MEDS: CYANOCOBALAMIN 500 MCG TAB PO SCH (08:50)
[2022-03-30] MEDS: SENNA 8.6 MG TAB (SENOKOT) PO SCH (08:50)
[2022-03-30] MEDS: SENOKOT S TAB PO SCH ×2 (08:50→21:00)
[2022-03-30] MEDS: APIXABAN 5 MG TAB (ELIQUIS) PO SCH ×2 (08:50→23:12)
[2022-03-30] MEDS: VITAMIN D 1,000 INTERNATIONAL UNITS TABLET PO SCH ×2 (08:50→23:12)
[2022-03-30] MEDS: PANTOPRAZOLE 40MG TAB (PROTONIX) PO SCH ×2 (08:51→23:13)
[2022-03-30] MEDS: ASPIRIN 81MG ENTERIC TABLET PO SCH (08:51)
[2022-03-30] MEDS: FLUTICASONE PROP 0.05% NASAL SPRAY 16 GM (FLONASE) NARES SCH ×2 (08:51→23:13)
[2022-03-30] MEDS: POLYVINYL ALCOHOL OPHTH SOLN 15ML (LIQUITEARS) OU SCH ×3 (08:51→23:13)
[2022-03-30] MEDS: FOLIC ACID 1MG TAB PO SCH (08:51)
[2022-03-30] MEDS: diphenhydrAMINE 25MG CAP PO PRN (23:11)
[2022-03-30] MEDS: ROSUVASTATIN 10 MG TAB (CRESTOR) PO SCH (23:12)
[2022-03-30] MEDS: TAMSULOSIN 0.4 MG CAP PO SCH (23:12)
[2022-03-31 06:00] VITALS: BP 133/74
[2022-03-31] MEDS: PYRIDOSTIGMINE 60MG TABLET PO SCH ×4 (06:27→20:40)
[2022-03-31] MEDS: APIXABAN 5 MG TAB (ELIQUIS) PO SCH ×2 (08:47→20:40)
[2022-03-31] MEDS: VITAMIN D 1,000 INTERNATIONAL UNITS TABLET PO SCH ×2 (08:47→20:39)
[2022-03-31] MEDS: MIRALAX *UNIT DOSE* 17GM PACKET PO SCH (08:47)
[2022-03-31] MEDS: SENNA 8.6 MG TAB (SENOKOT) PO SCH (08:47)
[2022-03-31] MEDS: CYANOCOBALAMIN 500 MCG TAB PO SCH (08:47)
[2022-03-31] MEDS: predniSONE 5 MG TAB PO SCH (08:47)
[2022-03-31] MEDS: FLUTICASONE PROP 0.05% NASAL SPRAY 16 GM (FLONASE) NARES SCH ×2 (08:48→20:41)
[2022-03-31] MEDS: FOLIC ACID 1MG TAB PO SCH (08:48)
[2022-03-31] MEDS: SENOKOT S TAB PO SCH ×2 (08:48→20:40)
[2022-03-31] MEDS: ASPIRIN 81MG ENTERIC TABLET PO SCH (08:48)
[2022-03-31] MEDS: PANTOPRAZOLE 40MG TAB (PROTONIX) PO SCH ×2 (08:49→20:40)
[2022-03-31] MEDS: POLYVINYL ALCOHOL OPHTH SOLN 15ML (LIQUITEARS) OU SCH ×3 (08:49→20:41)
[2022-03-31] MEDS: ROSUVASTATIN 10 MG TAB (CRESTOR) PO SCH (20:40)
[2022-03-31] MEDS: TAMSULOSIN 0.4 MG CAP PO SCH (20:40)
[2022-03-31] MEDS: DICLOFENAC EPOLAMINE 1.3% PATCH TOP SCH (21:42)
[2022-03-31] MEDS: traMADol 50 MG TAB PO PRN (21:42)
[2022-04-01 05:00] VITALS: BP 130/77
[2022-04-01] MEDS: PYRIDOSTIGMINE 60MG TABLET PO SCH ×4 (05:20→21:02)
[2022-04-01] MEDS: FLUTICASONE PROP 0.05% NASAL SPRAY 16 GM (FLONASE) NARES SCH ×2 (09:40→21:03)
[2022-04-01] MEDS: POLYVINYL ALCOHOL OPHTH SOLN 15ML (LIQUITEARS) OU SCH ×3 (09:40→21:03)
[2022-04-01] MEDS: MIRALAX *UNIT DOSE* 17GM PACKET PO SCH (09:41)
[2022-04-01] MEDS: CYANOCOBALAMIN 500 MCG TAB PO SCH (09:41)
[2022-04-01] MEDS: VITAMIN D 1,000 INTERNATIONAL UNITS TABLET PO SCH ×2 (09:41→21:02)
[2022-04-01] MEDS: APIXABAN 5 MG TAB (ELIQUIS) PO SCH ×2 (09:41→21:02)
[2022-04-01] MEDS: FOLIC ACID 1MG TAB PO SCH (09:42)
[2022-04-01] MEDS: ASPIRIN 81MG ENTERIC TABLET PO SCH (09:42)
[2022-04-01] MEDS: PANTOPRAZOLE 40MG TAB (PROTONIX) PO SCH ×2 (09:42→21:02)
[2022-04-01] MEDS: predniSONE 5 MG TAB PO SCH (09:42)
[2022-04-01] MEDS: DICLOFENAC EPOLAMINE 1.3% PATCH TOP SCH ×2 (09:43→21:06)
[2022-04-01] MEDS: SENOKOT S TAB PO SCH ×2 (10:43→21:02)
[2022-04-01] MEDS: ROSUVASTATIN 10 MG TAB (CRESTOR) PO SCH (21:02)
[2022-04-01] MEDS: TAMSULOSIN 0.4 MG CAP PO SCH (21:02)
[2022-04-01] MEDS: traMADol 50 MG TAB PO PRN (21:03)
[2022-04-01] MEDS: diphenhydrAMINE 25MG CAP PO PRN (21:06)
[2022-04-02 05:15] VITALS: BP 128/80
[2022-04-02] MEDS: PYRIDOSTIGMINE 60MG TABLET PO SCH ×4 (05:17→21:46)
[2022-04-02] MEDS: MIRALAX *UNIT DOSE* 17GM PACKET PO SCH ×2 (09:00→10:02)
[2022-04-02] MEDS: ASPIRIN 81MG ENTERIC TABLET PO SCH (09:59)
[2022-04-02] MEDS: FOLIC ACID 1MG TAB PO SCH (10:00)
[2022-04-02] MEDS: SENOKOT S TAB PO SCH ×2 (10:00→21:46)
[2022-04-02] MEDS: PANTOPRAZOLE 40MG TAB (PROTONIX) PO SCH ×2 (10:00→21:46)
[2022-04-02] MEDS: predniSONE 5 MG TAB PO SCH (10:01)
[2022-04-02] MEDS: CYANOCOBALAMIN 500 MCG TAB PO SCH (10:01)
[2022-04-02] MEDS: VITAMIN D 1,000 INTERNATIONAL UNITS TABLET PO SCH ×2 (10:01→21:46)
[2022-04-02] MEDS: APIXABAN 5 MG TAB (ELIQUIS) PO SCH ×2 (10:01→21:46)
[2022-04-02] MEDS: POLYVINYL ALCOHOL OPHTH SOLN 15ML (LIQUITEARS) OU SCH ×3 (10:02→21:47)
[2022-04-02] MEDS: FLUTICASONE PROP 0.05% NASAL SPRAY 16 GM (FLONASE) NARES SCH ×2 (10:02→21:47)
[2022-04-02] MEDS: DICLOFENAC EPOLAMINE 1.3% PATCH TOP SCH (10:02)
[2022-04-02] MEDS: ROSUVASTATIN 10 MG TAB (CRESTOR) PO SCH (21:46)
[2022-04-02] MEDS: TAMSULOSIN 0.4 MG CAP PO SCH (21:46)
[2022-04-02] MEDS: diphenhydrAMINE 25MG CAP PO PRN (21:51)
[2022-04-03] MEDS: PYRIDOSTIGMINE 60MG TABLET PO SCH ×4 (05:00→22:10)
[2022-04-03 05:32] VITALS: BP 119/71
[2022-04-03] MEDS: MIRALAX *UNIT DOSE* 17GM PACKET PO SCH (09:00)
[2022-04-03] MEDS: FOLIC ACID 1MG TAB PO SCH (09:09)
[2022-04-03] MEDS: predniSONE 5 MG TAB PO SCH (09:10)
[2022-04-03] MEDS: ASPIRIN 81MG ENTERIC TABLET PO SCH (09:10)
[2022-04-03] MEDS: APIXABAN 5 MG TAB (ELIQUIS) PO SCH ×2 (09:10→20:02)
[2022-04-03] MEDS: SENOKOT S TAB PO SCH ×2 (09:10→20:02)
[2022-04-03] MEDS: PANTOPRAZOLE 40MG TAB (PROTONIX) PO SCH ×2 (09:10→20:03)
[2022-04-03] MEDS: VITAMIN D 1,000 INTERNATIONAL UNITS TABLET PO SCH ×2 (09:10→20:02)
[2022-04-03] MEDS: CYANOCOBALAMIN 500 MCG TAB PO SCH (09:10)
[2022-04-03] MEDS: POLYVINYL ALCOHOL OPHTH SOLN 15ML (LIQUITEARS) OU SCH ×3 (09:12→20:04)
[2022-04-03] MEDS: FLUTICASONE PROP 0.05% NASAL SPRAY 16 GM (FLONASE) NARES SCH ×2 (09:12→20:04)
[2022-04-03] MEDS: ROSUVASTATIN 10 MG TAB (CRESTOR) PO SCH (20:03)
[2022-04-03] MEDS: TAMSULOSIN 0.4 MG CAP PO SCH (20:03)
[2022-04-03] MEDS: diphenhydrAMINE 25MG CAP PO PRN (22:10)
[2022-04-04] MEDS: PYRIDOSTIGMINE 60MG TABLET PO SCH ×4 (05:46→21:04)
[2022-04-04 06:00] VITALS: BP 132/73
[2022-04-04 09:00] VITALS: BP 138/86
[2022-04-04] MEDS: MIRALAX *UNIT DOSE* 17GM PACKET PO SCH (09:00)
[2022-04-04] MEDS: VITAMIN D 1,000 INTERNATIONAL UNITS TABLET PO SCH ×2 (09:28→19:53)
[2022-04-04] MEDS: ASPIRIN 81MG ENTERIC TABLET PO SCH (09:28)
[2022-04-04] MEDS: predniSONE 5 MG TAB PO SCH (09:28)
[2022-04-04] MEDS: APIXABAN 5 MG TAB (ELIQUIS) PO SCH ×2 (09:28→19:56)
[2022-04-04] MEDS: CYANOCOBALAMIN 500 MCG TAB PO SCH (09:29)
[2022-04-04] MEDS: PANTOPRAZOLE 40MG TAB (PROTONIX) PO SCH ×2 (09:29→19:52)
[2022-04-04] MEDS: SENOKOT S TAB PO SCH ×2 (09:32→19:53)
[2022-04-04] MEDS: FOLIC ACID 1MG TAB PO SCH (09:33)
[2022-04-04] MEDS: POLYVINYL ALCOHOL OPHTH SOLN 15ML (LIQUITEARS) OU SCH ×3 (09:33→19:56)
[2022-04-04] MEDS: FLUTICASONE PROP 0.05% NASAL SPRAY 16 GM (FLONASE) NARES SCH ×2 (09:34→19:55)
[2022-04-04] MEDS: METHOTREXATE 2.5MG TAB PO SCH (11:01)
[2022-04-04] MEDS: ROSUVASTATIN 10 MG TAB (CRESTOR) PO SCH (19:52)
[2022-04-04] MEDS: diphenhydrAMINE 25MG CAP PO PRN (19:53)
[2022-04-04] MEDS: TAMSULOSIN 0.4 MG CAP PO SCH (19:53)
[2022-04-05] MEDS: PYRIDOSTIGMINE 60MG TABLET PO SCH ×4 (05:28→22:36)
[2022-04-05 06:00] VITALS: BP 139/79
[2022-04-05] MEDS: MIRALAX *UNIT DOSE* 17GM PACKET PO SCH (10:11)
[2022-04-05] MEDS: ASPIRIN 81MG ENTERIC TABLET PO SCH (10:11)
[2022-04-05] MEDS: APIXABAN 5 MG TAB (ELIQUIS) PO SCH ×2 (10:11→20:21)
[2022-04-05] MEDS: SENOKOT S TAB PO SCH ×2 (10:11→20:20)
[2022-04-05] MEDS: CYANOCOBALAMIN 500 MCG TAB PO SCH (10:12)
[2022-04-05] MEDS: VITAMIN D 1,000 INTERNATIONAL UNITS TABLET PO SCH ×2 (10:12→20:20)
[2022-04-05] MEDS: PANTOPRAZOLE 40MG TAB (PROTONIX) PO SCH ×2 (10:12→20:21)
[2022-04-05] MEDS: FOLIC ACID 1MG TAB PO SCH (10:12)
[2022-04-05] MEDS: POLYVINYL ALCOHOL OPHTH SOLN 15ML (LIQUITEARS) OU SCH ×3 (10:12→20:26)
[2022-04-05] MEDS: FLUTICASONE PROP 0.05% NASAL SPRAY 16 GM (FLONASE) NARES SCH ×2 (10:12→20:24)
[2022-04-05] MEDS: predniSONE 5 MG TAB PO SCH (10:12)
[2022-04-05] MEDS: ROSUVASTATIN 10 MG TAB (CRESTOR) PO SCH (20:20)
[2022-04-05] MEDS: TAMSULOSIN 0.4 MG CAP PO SCH (20:21)
[2022-04-05] MEDS: traMADol 50 MG TAB PO PRN (20:24)
[2022-04-05] MEDS: diphenhydrAMINE 25MG CAP PO PRN (22:36)
[2022-04-06 05:26] VITALS: BP 117/83
[2022-04-06] MEDS: PYRIDOSTIGMINE 60MG TABLET PO SCH ×4 (05:26→21:19)
[2022-04-06] MEDS: PANTOPRAZOLE 40MG TAB (PROTONIX) PO SCH ×2 (10:15→21:19)
[2022-04-06] MEDS: SENOKOT S TAB PO SCH ×2 (10:15→21:18)
[2022-04-06] MEDS: VITAMIN D 1,000 INTERNATIONAL UNITS TABLET PO SCH ×2 (10:16→21:18)
[2022-04-06] MEDS: APIXABAN 5 MG TAB (ELIQUIS) PO SCH ×2 (10:16→21:18)
[2022-04-06] MEDS: ASPIRIN 81MG ENTERIC TABLET PO SCH (10:16)
[2022-04-06] MEDS: CYANOCOBALAMIN 500 MCG TAB PO SCH (10:16)
[2022-04-06] MEDS: predniSONE 5 MG TAB PO SCH (10:16)
[2022-04-06] MEDS: FOLIC ACID 1MG TAB PO SCH (10:16)
[2022-04-06] MEDS: FLUTICASONE PROP 0.05% NASAL SPRAY 16 GM (FLONASE) NARES SCH ×2 (10:16→21:17)
[2022-04-06] MEDS: POLYVINYL ALCOHOL OPHTH SOLN 15ML (LIQUITEARS) OU SCH ×3 (10:16→21:17)
[2022-04-06] MEDS: MIRALAX *UNIT DOSE* 17GM PACKET PO SCH (10:17)
[2022-04-06] MEDS: ROSUVASTATIN 10 MG TAB (CRESTOR) PO SCH (21:18)
[2022-04-06] MEDS: TAMSULOSIN 0.4 MG CAP PO SCH (21:19)
[2022-04-06] MEDS: traMADol 50 MG TAB PO PRN (21:20)
[2022-04-07 05:27] VITALS: BP 132/64
[2022-04-07] MEDS: PYRIDOSTIGMINE 60MG TABLET PO SCH ×4 (05:28→21:23)
[2022-04-07] MEDS: MIRALAX *UNIT DOSE* 17GM PACKET PO SCH (09:00)
[2022-04-07] MEDS: SENOKOT S TAB PO SCH ×2 (09:12→21:22)
[2022-04-07] MEDS: ASPIRIN 81MG ENTERIC TABLET PO SCH (09:12)
[2022-04-07] MEDS: APIXABAN 5 MG TAB (ELIQUIS) PO SCH ×2 (09:13→21:29)
[2022-04-07] MEDS: VITAMIN D 1,000 INTERNATIONAL UNITS TABLET PO SCH ×2 (09:13→21:23)
[2022-04-07] MEDS: predniSONE 5 MG TAB PO SCH (09:13)
[2022-04-07] MEDS: PANTOPRAZOLE 40MG TAB (PROTONIX) PO SCH ×2 (09:13→21:22)
[2022-04-07] MEDS: CYANOCOBALAMIN 500 MCG TAB PO SCH (09:13)
[2022-04-07] MEDS: FOLIC ACID 1MG TAB PO SCH (09:13)
[2022-04-07] MEDS: FLUTICASONE PROP 0.05% NASAL SPRAY 16 GM (FLONASE) NARES SCH ×2 (09:14→21:23)
[2022-04-07] MEDS: POLYVINYL ALCOHOL OPHTH SOLN 15ML (LIQUITEARS) OU SCH ×3 (09:14→21:23)
[2022-04-07] MEDS: TAMSULOSIN 0.4 MG CAP PO SCH (21:22)
[2022-04-07] MEDS: ROSUVASTATIN 10 MG TAB (CRESTOR) PO SCH (21:23)
[2022-04-07] MEDS: traMADol 50 MG TAB PO PRN (21:24)
[2022-04-08] MEDS: PYRIDOSTIGMINE 60MG TABLET PO SCH ×4 (05:32→21:15)
[2022-04-08 06:00] VITALS: BP 142/78
[2022-04-08 08:00] VITALS: BP 149/78
[2022-04-08] MEDS: MIRALAX *UNIT DOSE* 17GM PACKET PO SCH (09:00)
[2022-04-08] MEDS: SENOKOT S TAB PO SCH ×2 (09:25→21:17)
[2022-04-08] MEDS: VITAMIN D 1,000 INTERNATIONAL UNITS TABLET PO SCH ×2 (09:26→21:18)
[2022-04-08] MEDS: APIXABAN 5 MG TAB (ELIQUIS) PO SCH ×2 (09:26→21:17)
[2022-04-08] MEDS: predniSONE 5 MG TAB PO SCH (09:26)
[2022-04-08] MEDS: FOLIC ACID 1MG TAB PO SCH (09:26)
[2022-04-08] MEDS: ASPIRIN 81MG ENTERIC TABLET PO SCH (09:26)
[2022-04-08] MEDS: CYANOCOBALAMIN 500 MCG TAB PO SCH (09:26)
[2022-04-08] MEDS: PANTOPRAZOLE 40MG TAB (PROTONIX) PO SCH ×2 (09:27→21:17)
[2022-04-08] MEDS: POLYVINYL ALCOHOL OPHTH SOLN 15ML (LIQUITEARS) OU SCH ×3 (09:27→21:18)
[2022-04-08] MEDS: FLUTICASONE PROP 0.05% NASAL SPRAY 16 GM (FLONASE) NARES SCH ×2 (09:27→21:17)
[2022-04-08 12:00] VITALS: BP 119/67
[2022-04-08] MEDS: ROSUVASTATIN 10 MG TAB (CRESTOR) PO SCH (21:15)
[2022-04-08] MEDS: TAMSULOSIN 0.4 MG CAP PO SCH (21:16)
[2022-04-08] MEDS: diphenhydrAMINE 25MG CAP PO PRN (21:17)
[2022-04-09 05:50] VITALS: BP 140/87
[2022-04-09] MEDS: PYRIDOSTIGMINE 60MG TABLET PO SCH ×4 (06:11→21:47)
[2022-04-09] MEDS: SENOKOT S TAB PO SCH ×2 (08:53→21:47)
[2022-04-09] MEDS: CYANOCOBALAMIN 500 MCG TAB PO SCH (08:53)
[2022-04-09] MEDS: ASPIRIN 81MG ENTERIC TABLET PO SCH (08:53)
[2022-04-09] MEDS: APIXABAN 5 MG TAB (ELIQUIS) PO SCH ×2 (08:53→21:47)
[2022-04-09] MEDS: FOLIC ACID 1MG TAB PO SCH (08:53)
[2022-04-09] MEDS: POLYVINYL ALCOHOL OPHTH SOLN 15ML (LIQUITEARS) OU SCH ×3 (08:54→21:48)
[2022-04-09] MEDS: FLUTICASONE PROP 0.05% NASAL SPRAY 16 GM (FLONASE) NARES SCH ×2 (08:54→21:48)
[2022-04-09] MEDS: MIRALAX *UNIT DOSE* 17GM PACKET PO SCH (08:54)
[2022-04-09] MEDS: VITAMIN D 1,000 INTERNATIONAL UNITS TABLET PO SCH ×2 (08:57→21:47)
[2022-04-09] MEDS: PANTOPRAZOLE 40MG TAB (PROTONIX) PO SCH ×2 (08:57→21:47)
[2022-04-09] MEDS: predniSONE 5 MG TAB PO SCH (08:57)
[2022-04-09] MEDS: ROSUVASTATIN 10 MG TAB (CRESTOR) PO SCH (21:47)
[2022-04-09] MEDS: TAMSULOSIN 0.4 MG CAP PO SCH (21:47)
[2022-04-09] MEDS: diphenhydrAMINE 25MG CAP PO PRN (22:32)
[2022-04-09] MEDS: DICLOFENAC EPOLAMINE 1.3% PATCH TOP PRN (22:32)
[2022-04-10 06:00] VITALS: BP 120/79
[2022-04-10] MEDS: PYRIDOSTIGMINE 60MG TABLET PO SCH ×4 (06:04→21:51)
[2022-04-10] MEDS: CYANOCOBALAMIN 500 MCG TAB PO SCH (08:10)
[2022-04-10] MEDS: POLYVINYL ALCOHOL OPHTH SOLN 15ML (LIQUITEARS) OU SCH ×3 (08:11→21:52)
[2022-04-10] MEDS: FLUTICASONE PROP 0.05% NASAL SPRAY 16 GM (FLONASE) NARES SCH ×2 (08:11→21:51)
[2022-04-10] MEDS: VITAMIN D 1,000 INTERNATIONAL UNITS TABLET PO SCH ×2 (08:11→21:51)
[2022-04-10] MEDS: PANTOPRAZOLE 40MG TAB (PROTONIX) PO SCH ×2 (08:11→21:51)
[2022-04-10] MEDS: ASPIRIN 81MG ENTERIC TABLET PO SCH (08:11)
[2022-04-10] MEDS: predniSONE 5 MG TAB PO SCH (08:11)
[2022-04-10] MEDS: SENOKOT S TAB PO SCH ×2 (08:11→21:51)
[2022-04-10] MEDS: MIRALAX *UNIT DOSE* 17GM PACKET PO SCH (08:11)
[2022-04-10] MEDS: APIXABAN 5 MG TAB (ELIQUIS) PO SCH ×2 (08:11→21:51)
[2022-04-10] MEDS: FOLIC ACID 1MG TAB PO SCH (08:11)
[2022-04-10] MEDS: TAMSULOSIN 0.4 MG CAP PO SCH (21:51)
[2022-04-10] MEDS: ROSUVASTATIN 10 MG TAB (CRESTOR) PO SCH (21:51)
[2022-04-10] MEDS: guaiFENesin ER 600 MG TAB PO SCH (21:52)
[2022-04-11] MEDS: diphenhydrAMINE 25MG CAP PO PRN (01:37)
[2022-04-11] MEDS: PYRIDOSTIGMINE 60MG TABLET PO SCH ×4 (05:59→21:01)
[2022-04-11 06:00] VITALS: BP 134/80
[2022-04-11] MEDS: MIRALAX *UNIT DOSE* 17GM PACKET PO SCH (09:17)
[2022-04-11] MEDS: METHOTREXATE 2.5MG TAB PO SCH (09:18)
[2022-04-11] MEDS: ASPIRIN 81MG ENTERIC TABLET PO SCH (09:18)
[2022-04-11] MEDS: VITAMIN D 1,000 INTERNATIONAL UNITS TABLET PO SCH ×2 (09:18→21:02)
[2022-04-11] MEDS: guaiFENesin ER 600 MG TAB PO SCH ×2 (09:18→21:02)
[2022-04-11] MEDS: PANTOPRAZOLE 40MG TAB (PROTONIX) PO SCH ×2 (09:18→21:02)
[2022-04-11] MEDS: predniSONE 5 MG TAB PO SCH (09:19)
[2022-04-11] MEDS: SENOKOT S TAB PO SCH ×2 (09:19→21:02)
[2022-04-11] MEDS: APIXABAN 5 MG TAB (ELIQUIS) PO SCH ×2 (09:19→21:01)
[2022-04-11] MEDS: CYANOCOBALAMIN 500 MCG TAB PO SCH (09:19)
[2022-04-11] MEDS: FLUTICASONE PROP 0.05% NASAL SPRAY 16 GM (FLONASE) NARES SCH ×2 (09:19→21:01)
[2022-04-11] MEDS: FOLIC ACID 1MG TAB PO SCH (09:19)
[2022-04-11] MEDS: POLYVINYL ALCOHOL OPHTH SOLN 15ML (LIQUITEARS) OU SCH ×3 (09:20→21:01)
[2022-04-11] MEDS: TAMSULOSIN 0.4 MG CAP PO SCH (21:01)
[2022-04-11] MEDS: ROSUVASTATIN 10 MG TAB (CRESTOR) PO SCH (21:02)
[2022-04-12] MEDS: PYRIDOSTIGMINE 60MG TABLET PO SCH ×4 (05:59→21:33)
[2022-04-12 06:00] VITALS: BP 137/77
[2022-04-12] MEDS: MIRALAX *UNIT DOSE* 17GM PACKET PO SCH (09:00)
[2022-04-12] MEDS: CYANOCOBALAMIN 500 MCG TAB PO SCH (10:31)
[2022-04-12] MEDS: guaiFENesin ER 600 MG TAB PO SCH ×2 (10:31→21:33)
[2022-04-12] MEDS: ASPIRIN 81MG ENTERIC TABLET PO SCH (10:31)
[2022-04-12] MEDS: FOLIC ACID 1MG TAB PO SCH (10:32)
[2022-04-12] MEDS: FLUTICASONE PROP 0.05% NASAL SPRAY 16 GM (FLONASE) NARES SCH ×2 (10:32→21:41)
[2022-04-12] MEDS: VITAMIN D 1,000 INTERNATIONAL UNITS TABLET PO SCH ×2 (10:32→21:33)
[2022-04-12] MEDS: APIXABAN 5 MG TAB (ELIQUIS) PO SCH ×2 (10:32→21:33)
[2022-04-12] MEDS: PANTOPRAZOLE 40MG TAB (PROTONIX) PO SCH ×2 (10:32→21:33)
[2022-04-12] MEDS: predniSONE 5 MG TAB PO SCH (10:32)
[2022-04-12] MEDS: SENOKOT S TAB PO SCH ×2 (10:32→21:33)
[2022-04-12] MEDS: POLYVINYL ALCOHOL OPHTH SOLN 15ML (LIQUITEARS) OU SCH ×3 (10:33→21:41)
[2022-04-12] MEDS: diphenhydrAMINE 25MG CAP PO PRN (21:32)
[2022-04-12] MEDS: TAMSULOSIN 0.4 MG CAP PO SCH (21:33)
[2022-04-12] MEDS: ROSUVASTATIN 10 MG TAB (CRESTOR) PO SCH (21:33)
[2022-04-13] MEDS: PYRIDOSTIGMINE 60MG TABLET PO SCH ×4 (05:38→21:10)
[2022-04-13 06:00] VITALS: BP 132/74
[2022-04-13] MEDS: MIRALAX *UNIT DOSE* 17GM PACKET PO SCH (09:00)
[2022-04-13] MEDS: guaiFENesin ER 600 MG TAB PO SCH ×2 (10:23→21:09)
[2022-04-13] MEDS: predniSONE 5 MG TAB PO SCH (10:23)
[2022-04-13] MEDS: APIXABAN 5 MG TAB (ELIQUIS) PO SCH ×2 (10:25→21:09)
[2022-04-13] MEDS: ASPIRIN 81MG ENTERIC TABLET PO SCH (10:25)
[2022-04-13] MEDS: PANTOPRAZOLE 40MG TAB (PROTONIX) PO SCH ×2 (10:26→21:09)
[2022-04-13] MEDS: FOLIC ACID 1MG TAB PO SCH (10:27)
[2022-04-13] MEDS: VITAMIN D 1,000 INTERNATIONAL UNITS TABLET PO SCH ×2 (10:28→21:09)
[2022-04-13] MEDS: CYANOCOBALAMIN 500 MCG TAB PO SCH (10:29)
[2022-04-13] MEDS: SENOKOT S TAB PO SCH ×2 (10:29→21:09)
[2022-04-13] MEDS: POLYVINYL ALCOHOL OPHTH SOLN 15ML (LIQUITEARS) OU SCH ×3 (10:30→21:09)
[2022-04-13] MEDS: FLUTICASONE PROP 0.05% NASAL SPRAY 16 GM (FLONASE) NARES SCH ×2 (10:30→21:09)
[2022-04-13] MEDS: diphenhydrAMINE 25MG CAP PO PRN (21:08)
[2022-04-13] MEDS: ROSUVASTATIN 10 MG TAB (CRESTOR) PO SCH (21:09)
[2022-04-13] MEDS: TAMSULOSIN 0.4 MG CAP PO SCH (21:09)
[2022-04-14 05:04] VITALS: BP 137/74
[2022-04-14] MEDS: PYRIDOSTIGMINE 60MG TABLET PO SCH ×4 (05:44→22:17)
[2022-04-14] MEDS: MIRALAX *UNIT DOSE* 17GM PACKET PO SCH (09:00)
[2022-04-14] MEDS: FOLIC ACID 1MG TAB PO SCH (11:39)
[2022-04-14] MEDS: predniSONE 5 MG TAB PO SCH (11:40)
[2022-04-14] MEDS: APIXABAN 5 MG TAB (ELIQUIS) PO SCH ×2 (11:40→22:16)
[2022-04-14] MEDS: CYANOCOBALAMIN 500 MCG TAB PO SCH (11:41)
[2022-04-14] MEDS: diphenhydrAMINE 25MG CAP PO PRN ×3 (11:42→22:21)
[2022-04-14] MEDS: ASPIRIN 81MG ENTERIC TABLET PO SCH (11:42)
[2022-04-14] MEDS: guaiFENesin ER 600 MG TAB PO SCH ×2 (11:44→22:16)
[2022-04-14] MEDS: VITAMIN D 1,000 INTERNATIONAL UNITS TABLET PO SCH ×2 (11:44→22:16)
[2022-04-14] MEDS: PANTOPRAZOLE 40MG TAB (PROTONIX) PO SCH ×2 (11:45→22:16)
[2022-04-14] MEDS: FLUTICASONE PROP 0.05% NASAL SPRAY 16 GM (FLONASE) NARES SCH ×2 (11:46→22:18)
[2022-04-14] MEDS: SENOKOT S TAB PO SCH ×2 (11:46→22:18)
[2022-04-14] MEDS: POLYVINYL ALCOHOL OPHTH SOLN 15ML (LIQUITEARS) OU SCH ×3 (11:47→22:17)
[2022-04-14] MEDS: TAMSULOSIN 0.4 MG CAP PO SCH (22:17)
[2022-04-14] MEDS: ROSUVASTATIN 10 MG TAB (CRESTOR) PO SCH (22:17)
[2022-04-15] MEDS: PYRIDOSTIGMINE 60MG TABLET PO SCH ×4 (05:35→22:14)
[2022-04-15 06:07] VITALS: BP 125/76
[2022-04-15] MEDS: FOLIC ACID 1MG TAB PO SCH (09:58)
[2022-04-15] MEDS: ASPIRIN 81MG ENTERIC TABLET PO SCH (09:59)
[2022-04-15] MEDS: predniSONE 5 MG TAB PO SCH (09:59)
[2022-04-15] MEDS: CYANOCOBALAMIN 500 MCG TAB PO SCH (09:59)
[2022-04-15] MEDS: guaiFENesin ER 600 MG TAB PO SCH ×2 (10:00→22:14)
[2022-04-15] MEDS: PANTOPRAZOLE 40MG TAB (PROTONIX) PO SCH ×2 (10:00→22:14)
[2022-04-15] MEDS: VITAMIN D 1,000 INTERNATIONAL UNITS TABLET PO SCH ×2 (10:00→22:14)
[2022-04-15] MEDS: SENOKOT S TAB PO SCH ×2 (10:00→22:13)
[2022-04-15] MEDS: FLUTICASONE PROP 0.05% NASAL SPRAY 16 GM (FLONASE) NARES SCH ×2 (10:01→22:14)
[2022-04-15] MEDS: APIXABAN 5 MG TAB (ELIQUIS) PO SCH ×2 (10:01→22:13)
[2022-04-15] MEDS: POLYVINYL ALCOHOL OPHTH SOLN 15ML (LIQUITEARS) OU SCH ×3 (10:01→22:15)
[2022-04-15] MEDS: MIRALAX *UNIT DOSE* 17GM PACKET PO SCH (10:07)
[2022-04-15] MEDS: ROSUVASTATIN 10 MG TAB (CRESTOR) PO SCH (22:13)
[2022-04-15] MEDS: TAMSULOSIN 0.4 MG CAP PO SCH (22:13)
[2022-04-16 05:49] VITALS: BP 120/75
[2022-04-16] MEDS: PYRIDOSTIGMINE 60MG TABLET PO SCH ×4 (05:59→21:40)
[2022-04-16] MEDS: FLUTICASONE PROP 0.05% NASAL SPRAY 16 GM (FLONASE) NARES SCH ×2 (08:37→21:40)
[2022-04-16] MEDS: POLYVINYL ALCOHOL OPHTH SOLN 15ML (LIQUITEARS) OU SCH ×3 (08:37→21:40)
[2022-04-16] MEDS: CYANOCOBALAMIN 500 MCG TAB PO SCH (08:37)
[2022-04-16] MEDS: SENOKOT S TAB PO SCH ×2 (08:40→21:40)
[2022-04-16] MEDS: guaiFENesin ER 600 MG TAB PO SCH ×2 (08:40→21:40)
[2022-04-16] MEDS: ASPIRIN 81MG ENTERIC TABLET PO SCH (08:40)
[2022-04-16] MEDS: VITAMIN D 1,000 INTERNATIONAL UNITS TABLET PO SCH ×2 (08:40→21:40)
[2022-04-16] MEDS: APIXABAN 5 MG TAB (ELIQUIS) PO SCH ×2 (08:40→21:40)
[2022-04-16] MEDS: MIRALAX *UNIT DOSE* 17GM PACKET PO SCH (08:41)
[2022-04-16] MEDS: predniSONE 5 MG TAB PO SCH (08:41)
[2022-04-16] MEDS: FOLIC ACID 1MG TAB PO SCH (08:41)
[2022-04-16] MEDS: PANTOPRAZOLE 40MG TAB (PROTONIX) PO SCH ×2 (08:41→21:40)
[2022-04-16] MEDS: ROSUVASTATIN 10 MG TAB (CRESTOR) PO SCH (21:40)
[2022-04-16] MEDS: TAMSULOSIN 0.4 MG CAP PO SCH (21:51)
[2022-04-16] MEDS: traMADol 50 MG TAB PO PRN (22:59)
[2022-04-16] MEDS: diphenhydrAMINE 25MG CAP PO PRN (22:59)
[2022-04-17 05:59] VITALS: BP 109/74
[2022-04-17] MEDS: PYRIDOSTIGMINE 60MG TABLET PO SCH ×4 (06:00→22:55)
[2022-04-17] MEDS: MIRALAX *UNIT DOSE* 17GM PACKET PO SCH (09:00)
[2022-04-17 10:48] VITALS: BP 111/72
[2022-04-17] MEDS: VITAMIN D 1,000 INTERNATIONAL UNITS TABLET PO SCH ×2 (10:50→20:25)
[2022-04-17] MEDS: guaiFENesin ER 600 MG TAB PO SCH ×2 (10:50→20:25)
[2022-04-17] MEDS: CYANOCOBALAMIN 500 MCG TAB PO SCH (10:50)
[2022-04-17] MEDS: FOLIC ACID 1MG TAB PO SCH (10:50)
[2022-04-17] MEDS: ASPIRIN 81MG ENTERIC TABLET PO SCH (10:51)
[2022-04-17] MEDS: predniSONE 5 MG TAB PO SCH (10:51)
[2022-04-17] MEDS: APIXABAN 5 MG TAB (ELIQUIS) PO SCH ×2 (10:51→20:25)
[2022-04-17] MEDS: PANTOPRAZOLE 40MG TAB (PROTONIX) PO SCH ×2 (10:51→20:25)
[2022-04-17] MEDS: SENOKOT S TAB PO SCH ×2 (10:51→20:24)
[2022-04-17] MEDS: POLYVINYL ALCOHOL OPHTH SOLN 15ML (LIQUITEARS) OU SCH ×3 (10:52→20:25)
[2022-04-17] MEDS: FLUTICASONE PROP 0.05% NASAL SPRAY 16 GM (FLONASE) NARES SCH ×2 (10:52→20:25)
[2022-04-17] MEDS: ROSUVASTATIN 10 MG TAB (CRESTOR) PO SCH (20:24)
[2022-04-17] MEDS: TAMSULOSIN 0.4 MG CAP PO SCH (20:25)
[2022-04-17] MEDS: DICLOFENAC EPOLAMINE 1.3% PATCH TOP PRN (20:26)
[2022-04-17] MEDS: diphenhydrAMINE 25MG CAP PO PRN (22:55)
[2022-04-18] MEDS: PYRIDOSTIGMINE 60MG TABLET PO SCH ×4 (05:32→21:22)
[2022-04-18 06:00] VITALS: BP 133/74
[2022-04-18] MEDS: MIRALAX *UNIT DOSE* 17GM PACKET PO SCH (09:00)
[2022-04-18] MEDS: POLYVINYL ALCOHOL OPHTH SOLN 15ML (LIQUITEARS) OU SCH ×3 (10:51→20:23)
[2022-04-18] MEDS: FLUTICASONE PROP 0.05% NASAL SPRAY 16 GM (FLONASE) NARES SCH ×2 (10:51→20:23)
[2022-04-18] MEDS: FOLIC ACID 1MG TAB PO SCH (10:54)
[2022-04-18] MEDS: VITAMIN D 1,000 INTERNATIONAL UNITS TABLET PO SCH ×2 (10:54→20:22)
[2022-04-18] MEDS: CYANOCOBALAMIN 500 MCG TAB PO SCH (10:54)
[2022-04-18] MEDS: APIXABAN 5 MG TAB (ELIQUIS) PO SCH ×2 (10:56→20:21)
[2022-04-18] MEDS: PANTOPRAZOLE 40MG TAB (PROTONIX) PO SCH ×2 (10:56→20:21)
[2022-04-18] MEDS: predniSONE 5 MG TAB PO SCH (10:57)
[2022-04-18] MEDS: ASPIRIN 81MG ENTERIC TABLET PO SCH (10:58)
[2022-04-18] MEDS: SENOKOT S TAB PO SCH ×2 (10:58→20:22)
[2022-04-18] MEDS: guaiFENesin ER 600 MG TAB PO SCH ×2 (10:59→20:22)
[2022-04-18] MEDS: METHOTREXATE 2.5MG TAB PO SCH (11:07)
[2022-04-18] MEDS: DICLOFENAC EPOLAMINE 1.3% PATCH TOP PRN (20:21)
[2022-04-18] MEDS: TAMSULOSIN 0.4 MG CAP PO SCH (20:22)
[2022-04-18] MEDS: ROSUVASTATIN 10 MG TAB (CRESTOR) PO SCH (20:22)
[2022-04-18] MEDS: diphenhydrAMINE 25MG CAP PO PRN (20:22)
[2022-04-19 04:56] VITALS: BP 122/75
[2022-04-19] MEDS: PYRIDOSTIGMINE 60MG TABLET PO SCH ×4 (05:30→21:08)
[2022-04-19] MEDS: MIRALAX *UNIT DOSE* 17GM PACKET PO SCH (09:00)
[2022-04-19] MEDS: SENOKOT S TAB PO SCH ×2 (09:00→21:09)
[2022-04-19] MEDS: PANTOPRAZOLE 40MG TAB (PROTONIX) PO SCH ×2 (10:44→21:08)
[2022-04-19] MEDS: VITAMIN D 1,000 INTERNATIONAL UNITS TABLET PO SCH ×2 (10:44→21:09)
[2022-04-19] MEDS: ASPIRIN 81MG ENTERIC TABLET PO SCH (10:44)
[2022-04-19] MEDS: CYANOCOBALAMIN 500 MCG TAB PO SCH (10:44)
[2022-04-19] MEDS: guaiFENesin ER 600 MG TAB PO SCH ×2 (10:45→21:08)
[2022-04-19] MEDS: APIXABAN 5 MG TAB (ELIQUIS) PO SCH ×2 (10:45→21:09)
[2022-04-19] MEDS: predniSONE 5 MG TAB PO SCH (10:45)
[2022-04-19] MEDS: FOLIC ACID 1MG TAB PO SCH (10:45)
[2022-04-19] MEDS: FLUTICASONE PROP 0.05% NASAL SPRAY 16 GM (FLONASE) NARES SCH ×2 (10:46→21:09)
[2022-04-19] MEDS: POLYVINYL ALCOHOL OPHTH SOLN 15ML (LIQUITEARS) OU SCH ×3 (10:46→21:10)
[2022-04-19] MEDS: ROSUVASTATIN 10 MG TAB (CRESTOR) PO SCH (21:08)
[2022-04-19] MEDS: diphenhydrAMINE 25MG CAP PO PRN (21:08)
[2022-04-19] MEDS: TAMSULOSIN 0.4 MG CAP PO SCH (21:08)
[2022-04-19] MEDS: DICLOFENAC EPOLAMINE 1.3% PATCH TOP PRN (21:10)
[2022-04-20] MEDS: PYRIDOSTIGMINE 60MG TABLET PO SCH ×4 (05:15→21:50)
[2022-04-20 06:00] VITALS: BP 134/68
[2022-04-20] MEDS: MIRALAX *UNIT DOSE* 17GM PACKET PO SCH (09:00)
[2022-04-20] MEDS: POLYVINYL ALCOHOL OPHTH SOLN 15ML (LIQUITEARS) OU SCH ×3 (09:03→21:51)
[2022-04-20] MEDS: FLUTICASONE PROP 0.05% NASAL SPRAY 16 GM (FLONASE) NARES SCH ×2 (09:03→21:51)
[2022-04-20] MEDS: CYANOCOBALAMIN 500 MCG TAB PO SCH (09:04)
[2022-04-20] MEDS: ASPIRIN 81MG ENTERIC TABLET PO SCH (09:04)
[2022-04-20] MEDS: VITAMIN D 1,000 INTERNATIONAL UNITS TABLET PO SCH ×2 (09:05→21:51)
[2022-04-20] MEDS: PANTOPRAZOLE 40MG TAB (PROTONIX) PO SCH ×2 (09:05→21:50)
[2022-04-20] MEDS: predniSONE 5 MG TAB PO SCH (09:05)
[2022-04-20] MEDS: FOLIC ACID 1MG TAB PO SCH (09:05)
[2022-04-20] MEDS: SENOKOT S TAB PO SCH ×2 (09:05→21:51)
[2022-04-20] MEDS: APIXABAN 5 MG TAB (ELIQUIS) PO SCH ×2 (09:05→21:50)
[2022-04-20] MEDS: guaiFENesin ER 600 MG TAB PO SCH ×2 (09:05→21:50)
[2022-04-20] MEDS: TAMSULOSIN 0.4 MG CAP PO SCH (21:47)
[2022-04-20] MEDS: ROSUVASTATIN 10 MG TAB (CRESTOR) PO SCH (21:50)
[2022-04-20] MEDS: DICLOFENAC EPOLAMINE 1.3% PATCH TOP PRN (21:51)
[2022-04-20] MEDS: diphenhydrAMINE 25MG CAP PO PRN (21:51)
[2022-04-21] MEDS: PYRIDOSTIGMINE 60MG TABLET PO SCH ×4 (05:30→21:39)
[2022-04-21 06:00] VITALS: BP_SYST 124; BP_SYST 134; BP_DIAS 68; BP_DIAS 75
[2022-04-21] MEDS: MIRALAX *UNIT DOSE* 17GM PACKET PO SCH (09:00)
[2022-04-21] MEDS: PANTOPRAZOLE 40MG TAB (PROTONIX) PO SCH ×2 (09:48→21:39)
[2022-04-21] MEDS: guaiFENesin ER 600 MG TAB PO SCH ×2 (09:48→21:39)
[2022-04-21] MEDS: ASPIRIN 81MG ENTERIC TABLET PO SCH (09:48)
[2022-04-21] MEDS: predniSONE 5 MG TAB PO SCH (09:48)
[2022-04-21] MEDS: CYANOCOBALAMIN 500 MCG TAB PO SCH (09:48)
[2022-04-21] MEDS: VITAMIN D 1,000 INTERNATIONAL UNITS TABLET PO SCH ×2 (09:48→21:39)
[2022-04-21] MEDS: SENOKOT S TAB PO SCH ×2 (09:48→21:00)
[2022-04-21] MEDS: APIXABAN 5 MG TAB (ELIQUIS) PO SCH ×2 (09:50→21:40)
[2022-04-21] MEDS: POLYVINYL ALCOHOL OPHTH SOLN 15ML (LIQUITEARS) OU SCH ×3 (09:50→21:40)
[2022-04-21] MEDS: FLUTICASONE PROP 0.05% NASAL SPRAY 16 GM (FLONASE) NARES SCH ×2 (09:50→21:40)
[2022-04-21] MEDS: FOLIC ACID 1MG TAB PO SCH (09:50)
[2022-04-21] MEDS: diphenhydrAMINE 25MG CAP PO PRN (21:39)
[2022-04-21] MEDS: ROSUVASTATIN 10 MG TAB (CRESTOR) PO SCH (21:39)
[2022-04-21] MEDS: TAMSULOSIN 0.4 MG CAP PO SCH (21:39)
[2022-04-21] MEDS: DICLOFENAC EPOLAMINE 1.3% PATCH TOP PRN (21:40)
[2022-04-22 06:00] VITALS: BP 130/80
[2022-04-22] MEDS: PYRIDOSTIGMINE 60MG TABLET PO SCH ×4 (06:15→21:52)
[2022-04-22] MEDS: MIRALAX *UNIT DOSE* 17GM PACKET PO SCH (09:00)
[2022-04-22] MEDS: APIXABAN 5 MG TAB (ELIQUIS) PO SCH ×2 (09:38→21:54)
[2022-04-22] MEDS: ASPIRIN 81MG ENTERIC TABLET PO SCH (09:38)
[2022-04-22] MEDS: PANTOPRAZOLE 40MG TAB (PROTONIX) PO SCH ×2 (09:38→21:51)
[2022-04-22] MEDS: VITAMIN D 1,000 INTERNATIONAL UNITS TABLET PO SCH ×2 (09:38→21:53)
[2022-04-22] MEDS: CYANOCOBALAMIN 500 MCG TAB PO SCH (09:38)
[2022-04-22] MEDS: SENOKOT S TAB PO SCH ×2 (09:38→21:52)
[2022-04-22] MEDS: guaiFENesin ER 600 MG TAB PO SCH ×2 (09:39→21:50)
[2022-04-22] MEDS: FLUTICASONE PROP 0.05% NASAL SPRAY 16 GM (FLONASE) NARES SCH ×2 (09:39→21:54)
[2022-04-22] MEDS: predniSONE 5 MG TAB PO SCH (09:39)
[2022-04-22] MEDS: FOLIC ACID 1MG TAB PO SCH (09:39)
[2022-04-22] MEDS: POLYVINYL ALCOHOL OPHTH SOLN 15ML (LIQUITEARS) OU SCH ×3 (09:39→21:53)
[2022-04-22] MEDS: ROSUVASTATIN 10 MG TAB (CRESTOR) PO SCH (21:50)
[2022-04-22] MEDS: diphenhydrAMINE 25MG CAP PO PRN (21:50)
[2022-04-22] MEDS: TAMSULOSIN 0.4 MG CAP PO SCH (21:51)
[2022-04-23] MEDS: PYRIDOSTIGMINE 60MG TABLET PO SCH ×4 (05:51→20:56)
[2022-04-23 06:00] VITALS: BP 128/81
[2022-04-23] MEDS: guaiFENesin ER 600 MG TAB PO SCH ×2 (09:00→20:55)
[2022-04-23] MEDS: FOLIC ACID 1MG TAB PO SCH (10:57)
[2022-04-23] MEDS: CYANOCOBALAMIN 500 MCG TAB PO SCH (10:57)
[2022-04-23] MEDS: APIXABAN 5 MG TAB (ELIQUIS) PO SCH ×2 (10:57→20:56)
[2022-04-23] MEDS: predniSONE 5 MG TAB PO SCH (10:58)
[2022-04-23] MEDS: ASPIRIN 81MG ENTERIC TABLET PO SCH (10:58)
[2022-04-23] MEDS: SENOKOT S TAB PO SCH ×2 (10:59→20:56)
[2022-04-23] MEDS: POLYVINYL ALCOHOL OPHTH SOLN 15ML (LIQUITEARS) OU SCH ×3 (10:59→20:56)
[2022-04-23] MEDS: VITAMIN D 1,000 INTERNATIONAL UNITS TABLET PO SCH ×2 (10:59→20:55)
[2022-04-23] MEDS: MIRALAX *UNIT DOSE* 17GM PACKET PO SCH (10:59)
[2022-04-23] MEDS: PANTOPRAZOLE 40MG TAB (PROTONIX) PO SCH ×2 (10:59→20:55)
[2022-04-23] MEDS: FLUTICASONE PROP 0.05% NASAL SPRAY 16 GM (FLONASE) NARES SCH ×2 (10:59→20:56)
[2022-04-23] MEDS: ROSUVASTATIN 10 MG TAB (CRESTOR) PO SCH (20:56)
[2022-04-23] MEDS: TAMSULOSIN 0.4 MG CAP PO SCH (20:56)
[2022-04-23] MEDS: diphenhydrAMINE 25MG CAP PO PRN (23:42)
[2022-04-24] MEDS: PYRIDOSTIGMINE 60MG TABLET PO SCH ×4 (05:30→21:47)
[2022-04-24 05:36] VITALS: BP 118/77
[2022-04-24] MEDS: PANTOPRAZOLE 40MG TAB (PROTONIX) PO SCH ×2 (08:29→21:46)
[2022-04-24] MEDS: guaiFENesin ER 600 MG TAB PO SCH ×2 (08:29→21:46)
[2022-04-24] MEDS: ASPIRIN 81MG ENTERIC TABLET PO SCH (08:29)
[2022-04-24] MEDS: SENOKOT S TAB PO SCH ×2 (08:29→21:46)
[2022-04-24] MEDS: APIXABAN 5 MG TAB (ELIQUIS) PO SCH ×2 (08:29→21:47)
[2022-04-24] MEDS: FOLIC ACID 1MG TAB PO SCH (08:29)
[2022-04-24] MEDS: predniSONE 5 MG TAB PO SCH (08:29)
[2022-04-24] MEDS: CYANOCOBALAMIN 500 MCG TAB PO SCH (08:29)
[2022-04-24] MEDS: POLYVINYL ALCOHOL OPHTH SOLN 15ML (LIQUITEARS) OU SCH ×2 (08:30→16:27)
[2022-04-24] MEDS: VITAMIN D 1,000 INTERNATIONAL UNITS TABLET PO SCH ×2 (08:30→21:47)
[2022-04-24] MEDS: FLUTICASONE PROP 0.05% NASAL SPRAY 16 GM (FLONASE) NARES SCH ×2 (08:30→21:47)
[2022-04-24] MEDS: MIRALAX *UNIT DOSE* 17GM PACKET PO SCH (08:35)
[2022-04-24] MEDS ORDERED: POLYVINYL ALCOHOL OPHTH SOLN 15ML (LIQUITEARS) OU ONE (18:30)
[2022-04-24 18:52] LABS: HEMATOCRIT 35.4 % (42.0-52.0); HEMOGLOBIN 11.5 g/dl (13.5-17.5); MEAN CORPUSCULAR HEMOGLOBIN 29.9 pg (27.0-33.0); MEAN CORPUSCULAR HGB CONC 32.5 g/dl (32.0-36.5); MEAN CORPUSCULAR VOLUME 91.9 fl (80.0-96.0); PLATELET COUNT, AUTOMATED 245 10^3/uL (150-450); RED BLOOD COUNT 3.85 10^6/uL (4.30-6.10); WHITE BLOOD COUNT 6.5 10^3/uL (4.0-10.0)
[2022-04-24] MEDS: LACRILUBE (AKWA TEARS) OPHTH OINT 3.5GM OU SCH (21:45)
[2022-04-24] MEDS: TAMSULOSIN 0.4 MG CAP PO SCH (21:47)
[2022-04-24] MEDS: ROSUVASTATIN 10 MG TAB (CRESTOR) PO SCH (21:47)
[2022-04-25] MEDS: PYRIDOSTIGMINE 60MG TABLET PO SCH ×4 (05:37→20:36)
[2022-04-25 06:00] VITALS: BP 129/78
[2022-04-25] MEDS: PANTOPRAZOLE 40MG TAB (PROTONIX) PO SCH ×2 (08:20→20:37)
[2022-04-25] MEDS: METHOTREXATE 2.5MG TAB PO SCH (08:20)
[2022-04-25] MEDS: FLUTICASONE PROP 0.05% NASAL SPRAY 16 GM (FLONASE) NARES SCH ×2 (08:21→20:37)
[2022-04-25] MEDS: guaiFENesin ER 600 MG TAB PO SCH ×2 (08:21→20:36)
[2022-04-25] MEDS: VITAMIN D 1,000 INTERNATIONAL UNITS TABLET PO SCH ×2 (08:21→20:36)
[2022-04-25] MEDS: APIXABAN 5 MG TAB (ELIQUIS) PO SCH ×2 (08:21→20:36)
[2022-04-25] MEDS: SENOKOT S TAB PO SCH ×2 (08:21→20:37)
[2022-04-25] MEDS: FOLIC ACID 1MG TAB PO SCH (08:21)
[2022-04-25] MEDS: ASPIRIN 81MG ENTERIC TABLET PO SCH (08:21)
[2022-04-25] MEDS: predniSONE 5 MG TAB PO SCH (08:21)
[2022-04-25] MEDS: CYANOCOBALAMIN 500 MCG TAB PO SCH (08:21)
[2022-04-25] MEDS: MIRALAX *UNIT DOSE* 17GM PACKET PO SCH (08:22)
[2022-04-25] MEDS: LACRILUBE (AKWA TEARS) OPHTH OINT 3.5GM OU SCH ×3 (08:22→20:37)
[2022-04-25] MEDS: TAMSULOSIN 0.4 MG CAP PO SCH (20:36)
[2022-04-25] MEDS: ROSUVASTATIN 10 MG TAB (CRESTOR) PO SCH (20:36)
[2022-04-26 06:00] VITALS: BP 121/76
[2022-04-26] MEDS: PYRIDOSTIGMINE 60MG TABLET PO SCH ×4 (06:07→20:16)
[2022-04-26] MEDS: VITAMIN D 1,000 INTERNATIONAL UNITS TABLET PO SCH ×2 (10:21→20:17)
[2022-04-26] MEDS: APIXABAN 5 MG TAB (ELIQUIS) PO SCH ×2 (10:21→20:17)
[2022-04-26] MEDS: CYANOCOBALAMIN 500 MCG TAB PO SCH (10:21)
[2022-04-26] MEDS: ASPIRIN 81MG ENTERIC TABLET PO SCH (10:22)
[2022-04-26] MEDS: FOLIC ACID 1MG TAB PO SCH (10:22)
[2022-04-26] MEDS: PANTOPRAZOLE 40MG TAB (PROTONIX) PO SCH ×2 (10:22→20:17)
[2022-04-26] MEDS: guaiFENesin ER 600 MG TAB PO SCH ×2 (10:22→20:17)
[2022-04-26] MEDS: SENOKOT S TAB PO SCH ×2 (10:22→20:17)
[2022-04-26] MEDS: predniSONE 5 MG TAB PO SCH (10:22)
[2022-04-26] MEDS: FLUTICASONE PROP 0.05% NASAL SPRAY 16 GM (FLONASE) NARES SCH ×2 (10:25→20:15)
[2022-04-26] MEDS: LACRILUBE (AKWA TEARS) OPHTH OINT 3.5GM OU SCH ×3 (10:56→20:15)
[2022-04-26] MEDS: MIRALAX *UNIT DOSE* 17GM PACKET PO SCH (10:56)
[2022-04-26] MEDS: ROSUVASTATIN 10 MG TAB (CRESTOR) PO SCH (20:16)
[2022-04-26] MEDS: TAMSULOSIN 0.4 MG CAP PO SCH (20:16)
[2022-04-27] MEDS: PYRIDOSTIGMINE 60MG TABLET PO SCH ×4 (05:39→20:28)
[2022-04-27 06:00] VITALS: BP 132/71
[2022-04-27] MEDS: MIRALAX *UNIT DOSE* 17GM PACKET PO SCH (09:00)
[2022-04-27] MEDS: FOLIC ACID 1MG TAB PO SCH (09:47)
[2022-04-27] MEDS: CYANOCOBALAMIN 500 MCG TAB PO SCH (09:47)
[2022-04-27] MEDS: ASPIRIN 81MG ENTERIC TABLET PO SCH (09:47)
[2022-04-27] MEDS: PANTOPRAZOLE 40MG TAB (PROTONIX) PO SCH ×2 (09:47→20:29)
[2022-04-27] MEDS: FLUTICASONE PROP 0.05% NASAL SPRAY 16 GM (FLONASE) NARES SCH ×2 (09:48→20:30)
[2022-04-27] MEDS: predniSONE 5 MG TAB PO SCH (09:48)
[2022-04-27] MEDS: guaiFENesin ER 600 MG TAB PO SCH ×2 (09:48→20:29)
[2022-04-27] MEDS: APIXABAN 5 MG TAB (ELIQUIS) PO SCH ×2 (09:48→21:00)
[2022-04-27] MEDS: SENOKOT S TAB PO SCH ×2 (09:48→20:29)
[2022-04-27] MEDS: LACRILUBE (AKWA TEARS) OPHTH OINT 3.5GM OU SCH ×3 (09:48→20:30)
[2022-04-27] MEDS: VITAMIN D 1,000 INTERNATIONAL UNITS TABLET PO SCH ×2 (09:48→20:29)
[2022-04-27] MEDS: ROSUVASTATIN 10 MG TAB (CRESTOR) PO SCH (20:29)
[2022-04-27] MEDS: diphenhydrAMINE 25MG CAP PO PRN (20:29)
[2022-04-27] MEDS: TAMSULOSIN 0.4 MG CAP PO SCH (21:00)
[2022-04-28] MEDS: PYRIDOSTIGMINE 60MG TABLET PO SCH ×4 (06:00→22:33)
[2022-04-28 06:54] VITALS: BP 119/75
[2022-04-28] MEDS: MIRALAX *UNIT DOSE* 17GM PACKET PO SCH (09:00)
[2022-04-28] MEDS: ASPIRIN 81MG ENTERIC TABLET PO SCH (10:26)
[2022-04-28] MEDS: predniSONE 5 MG TAB PO SCH (10:26)
[2022-04-28] MEDS: CYANOCOBALAMIN 500 MCG TAB PO SCH (10:26)
[2022-04-28] MEDS: APIXABAN 5 MG TAB (ELIQUIS) PO SCH ×2 (10:26→20:55)
[2022-04-28] MEDS: PANTOPRAZOLE 40MG TAB (PROTONIX) PO SCH ×2 (10:26→20:55)
[2022-04-28] MEDS: VITAMIN D 1,000 INTERNATIONAL UNITS TABLET PO SCH ×2 (10:26→20:54)
[2022-04-28] MEDS: LACRILUBE (AKWA TEARS) OPHTH OINT 3.5GM OU SCH ×3 (10:26→20:56)
[2022-04-28] MEDS: SENOKOT S TAB PO SCH ×2 (10:27→20:53)
[2022-04-28] MEDS: FOLIC ACID 1MG TAB PO SCH (10:27)
[2022-04-28] MEDS: guaiFENesin ER 600 MG TAB PO SCH ×2 (10:27→20:54)
[2022-04-28] MEDS: FLUTICASONE PROP 0.05% NASAL SPRAY 16 GM (FLONASE) NARES SCH ×2 (10:28→20:56)
[2022-04-28] MEDS: diphenhydrAMINE 25MG CAP PO PRN (20:53)
[2022-04-28] MEDS: ROSUVASTATIN 10 MG TAB (CRESTOR) PO SCH (20:54)
[2022-04-28] MEDS: TAMSULOSIN 0.4 MG CAP PO SCH (20:56)
[2022-04-29] MEDS: PYRIDOSTIGMINE 60MG TABLET PO SCH ×4 (05:36→21:12)
[2022-04-29] MEDS: MIRALAX *UNIT DOSE* 17GM PACKET PO SCH (09:47)
[2022-04-29] MEDS: SENOKOT S TAB PO SCH ×2 (09:47→21:08)
[2022-04-29] MEDS: CYANOCOBALAMIN 500 MCG TAB PO SCH (09:47)
[2022-04-29] MEDS: VITAMIN D 1,000 INTERNATIONAL UNITS TABLET PO SCH ×2 (09:48→21:12)
[2022-04-29] MEDS: APIXABAN 5 MG TAB (ELIQUIS) PO SCH ×2 (09:48→21:07)
[2022-04-29] MEDS: ASPIRIN 81MG ENTERIC TABLET PO SCH (09:48)
[2022-04-29] MEDS: predniSONE 5 MG TAB PO SCH (09:48)
[2022-04-29] MEDS: FOLIC ACID 1MG TAB PO SCH (09:48)
[2022-04-29] MEDS: PANTOPRAZOLE 40MG TAB (PROTONIX) PO SCH ×2 (09:49→21:07)
[2022-04-29] MEDS: LACRILUBE (AKWA TEARS) OPHTH OINT 3.5GM OU SCH ×3 (09:49→21:12)
[2022-04-29] MEDS: FLUTICASONE PROP 0.05% NASAL SPRAY 16 GM (FLONASE) NARES SCH ×2 (09:49→21:12)
[2022-04-29] MEDS: guaiFENesin ER 600 MG TAB PO SCH ×2 (09:49→21:07)
[2022-04-29] MEDS: ROSUVASTATIN 10 MG TAB (CRESTOR) PO SCH (21:12)
[2022-04-29] MEDS: TAMSULOSIN 0.4 MG CAP PO SCH (21:12)
[2022-04-29] MEDS: diphenhydrAMINE 25MG CAP PO PRN (23:20)
[2022-04-30 05:10] VITALS: BP 133/84
[2022-04-30] MEDS: PYRIDOSTIGMINE 60MG TABLET PO SCH ×4 (05:38→21:22)
[2022-04-30] MEDS: MIRALAX *UNIT DOSE* 17GM PACKET PO SCH (09:00)
[2022-04-30] MEDS: SENOKOT S TAB PO SCH ×2 (09:04→21:00)
[2022-04-30] MEDS: CYANOCOBALAMIN 500 MCG TAB PO SCH (09:04)
[2022-04-30] MEDS: ASPIRIN 81MG ENTERIC TABLET PO SCH (09:04)
[2022-04-30] MEDS: VITAMIN D 1,000 INTERNATIONAL UNITS TABLET PO SCH ×2 (09:04→21:22)
[2022-04-30] MEDS: guaiFENesin ER 600 MG TAB PO SCH ×2 (09:04→21:22)
[2022-04-30] MEDS: FOLIC ACID 1MG TAB PO SCH (09:04)
[2022-04-30] MEDS: PANTOPRAZOLE 40MG TAB (PROTONIX) PO SCH ×2 (09:05→21:21)
[2022-04-30] MEDS: APIXABAN 5 MG TAB (ELIQUIS) PO SCH ×2 (09:05→21:22)
[2022-04-30] MEDS: FLUTICASONE PROP 0.05% NASAL SPRAY 16 GM (FLONASE) NARES SCH ×2 (09:05→21:22)
[2022-04-30] MEDS: LACRILUBE (AKWA TEARS) OPHTH OINT 3.5GM OU SCH ×3 (09:05→21:23)
[2022-04-30] MEDS: predniSONE 5 MG TAB PO SCH (09:05)
[2022-04-30] MEDS: TAMSULOSIN 0.4 MG CAP PO SCH (21:21)
[2022-04-30] MEDS: ROSUVASTATIN 10 MG TAB (CRESTOR) PO SCH (21:22)
[2022-04-30] MEDS: diphenhydrAMINE 25MG CAP PO PRN (23:05)
[2022-05-01 05:00] VITALS: BP 151/86
[2022-05-01] MEDS: PYRIDOSTIGMINE 60MG TABLET PO SCH ×4 (06:03→21:24)
[2022-05-01] MEDS: APIXABAN 5 MG TAB (ELIQUIS) PO SCH ×2 (09:57→21:25)
[2022-05-01] MEDS: CYANOCOBALAMIN 500 MCG TAB PO SCH (09:57)
[2022-05-01] MEDS: MIRALAX *UNIT DOSE* 17GM PACKET PO SCH (09:57)
[2022-05-01] MEDS: FOLIC ACID 1MG TAB PO SCH (09:57)
[2022-05-01] MEDS: guaiFENesin ER 600 MG TAB PO SCH ×2 (09:57→21:25)
[2022-05-01] MEDS: ASPIRIN 81MG ENTERIC TABLET PO SCH (09:57)
[2022-05-01] MEDS: predniSONE 5 MG TAB PO SCH (09:57)
[2022-05-01] MEDS: PANTOPRAZOLE 40MG TAB (PROTONIX) PO SCH ×2 (09:57→21:25)
[2022-05-01] MEDS: VITAMIN D 1,000 INTERNATIONAL UNITS TABLET PO SCH ×2 (09:57→21:24)
[2022-05-01] MEDS: SENOKOT S TAB PO SCH ×2 (09:58→21:25)
[2022-05-01] MEDS: FLUTICASONE PROP 0.05% NASAL SPRAY 16 GM (FLONASE) NARES SCH ×2 (09:58→21:26)
[2022-05-01] MEDS: LACRILUBE (AKWA TEARS) OPHTH OINT 3.5GM OU SCH ×3 (09:58→21:26)
[2022-05-01] MEDS: ROSUVASTATIN 10 MG TAB (CRESTOR) PO SCH (21:24)
[2022-05-01] MEDS: TAMSULOSIN 0.4 MG CAP PO SCH (21:26)
[2022-05-02] MEDS: PYRIDOSTIGMINE 60MG TABLET PO SCH ×4 (05:10→21:42)
[2022-05-02 05:56] VITALS: BP 131/4
[2022-05-02] MEDS: ASPIRIN 81MG ENTERIC TABLET PO SCH (08:20)
[2022-05-02] MEDS: VITAMIN D 1,000 INTERNATIONAL UNITS TABLET PO SCH ×2 (08:21→20:10)
[2022-05-02] MEDS: CYANOCOBALAMIN 500 MCG TAB PO SCH (08:21)
[2022-05-02 08:22] VITALS: BP 138/82
[2022-05-02] MEDS: guaiFENesin ER 600 MG TAB PO SCH ×2 (08:25→20:11)
[2022-05-02] MEDS: APIXABAN 5 MG TAB (ELIQUIS) PO SCH ×2 (08:25→20:10)
[2022-05-02] MEDS: SENOKOT S TAB PO SCH ×2 (08:26→20:10)
[2022-05-02] MEDS: PANTOPRAZOLE 40MG TAB (PROTONIX) PO SCH ×2 (08:26→20:11)
[2022-05-02] MEDS: FOLIC ACID 1MG TAB PO SCH (08:26)
[2022-05-02] MEDS: predniSONE 5 MG TAB PO SCH (08:26)
[2022-05-02] MEDS: MIRALAX *UNIT DOSE* 17GM PACKET PO SCH (08:26)
[2022-05-02] MEDS: FLUTICASONE PROP 0.05% NASAL SPRAY 16 GM (FLONASE) NARES SCH ×2 (08:27→20:08)
[2022-05-02] MEDS: LACRILUBE (AKWA TEARS) OPHTH OINT 3.5GM OU SCH ×3 (08:28→20:08)
[2022-05-02] MEDS: METHOTREXATE 2.5MG TAB PO SCH (08:37)
[2022-05-02] MEDS: ROSUVASTATIN 10 MG TAB (CRESTOR) PO SCH (20:09)
[2022-05-02] MEDS: TAMSULOSIN 0.4 MG CAP PO SCH (20:11)
[2022-05-03] MEDS: PYRIDOSTIGMINE 60MG TABLET PO SCH ×4 (05:16→21:12)
[2022-05-03 05:27] VITALS: BP 137/75
[2022-05-03] MEDS: MIRALAX *UNIT DOSE* 17GM PACKET PO SCH (09:00)
[2022-05-03] MEDS: predniSONE 5 MG TAB PO SCH (09:10)
[2022-05-03] MEDS: PANTOPRAZOLE 40MG TAB (PROTONIX) PO SCH ×2 (09:10→20:49)
[2022-05-03] MEDS: LACRILUBE (AKWA TEARS) OPHTH OINT 3.5GM OU SCH ×3 (09:10→20:46)
[2022-05-03] MEDS: FLUTICASONE PROP 0.05% NASAL SPRAY 16 GM (FLONASE) NARES SCH ×2 (09:10→20:46)
[2022-05-03] MEDS: SENOKOT S TAB PO SCH ×2 (09:10→20:50)
[2022-05-03] MEDS: APIXABAN 5 MG TAB (ELIQUIS) PO SCH ×2 (09:10→20:49)
[2022-05-03] MEDS: FOLIC ACID 1MG TAB PO SCH (09:10)
[2022-05-03] MEDS: ASPIRIN 81MG ENTERIC TABLET PO SCH (09:10)
[2022-05-03] MEDS: guaiFENesin ER 600 MG TAB PO SCH ×2 (09:10→20:48)
[2022-05-03] MEDS: CYANOCOBALAMIN 500 MCG TAB PO SCH (09:10)
[2022-05-03] MEDS: VITAMIN D 1,000 INTERNATIONAL UNITS TABLET PO SCH ×2 (09:10→20:47)
[2022-05-03] MEDS: ROSUVASTATIN 10 MG TAB (CRESTOR) PO SCH (20:47)
[2022-05-03] MEDS: TAMSULOSIN 0.4 MG CAP PO SCH (20:49)
[2022-05-04] MEDS: PYRIDOSTIGMINE 60MG TABLET PO SCH ×4 (05:06→21:58)
[2022-05-04 06:00] VITALS: BP 116/67
[2022-05-04 06:10] LABS: HEMATOCRIT 33.8 % (42.0-52.0); HEMOGLOBIN 10.9 g/dl (13.5-17.5); MEAN CORPUSCULAR HEMOGLOBIN 29.9 pg (27.0-33.0); MEAN CORPUSCULAR HGB CONC 32.2 g/dl (32.0-36.5); MEAN CORPUSCULAR VOLUME 92.6 fl (80.0-96.0); PLATELET COUNT, AUTOMATED 226 10^3/uL (150-450); RED BLOOD COUNT 3.65 10^6/uL (4.30-6.10); WHITE BLOOD COUNT 7.4 10^3/uL (4.0-10.0)
[2022-05-04 06:42] LABS: BLOOD UREA NITROGEN 16 MG/DL (9-23); CALCIUM LEVEL 8.5 MG/DL (8.3-10.6); CARBON DIOXIDE LEVEL 32 MMOL/L (20-31); CHLORIDE LEVEL 105 MMOL/L (98-107); CREATININE FOR GFR 1.04 MG/DL (0.70-1.30); GLOMERULAR FILTRATION RATE > 60.0 (>35); GLUCOSE, FASTING 116 MG/DL (74-106); POTASSIUM SERUM 3.5 MMOL/L (3.5-5.1); SODIUM LEVEL 141 MMOL/L (136-145)
[2022-05-04] MEDS: FOLIC ACID 1MG TAB PO SCH (09:57)
[2022-05-04] MEDS: predniSONE 5 MG TAB PO SCH (09:57)
[2022-05-04] MEDS: MIRALAX *UNIT DOSE* 17GM PACKET PO SCH ×2 (09:57→10:02)
[2022-05-04] MEDS: PANTOPRAZOLE 40MG TAB (PROTONIX) PO SCH ×2 (09:58→21:56)
[2022-05-04] MEDS: VITAMIN D 1,000 INTERNATIONAL UNITS TABLET PO SCH ×2 (09:58→21:56)
[2022-05-04] MEDS: APIXABAN 5 MG TAB (ELIQUIS) PO SCH ×2 (09:58→21:56)
[2022-05-04] MEDS: ASPIRIN 81MG ENTERIC TABLET PO SCH (09:58)
[2022-05-04] MEDS: CYANOCOBALAMIN 500 MCG TAB PO SCH (09:58)
[2022-05-04] MEDS: SENOKOT S TAB PO SCH ×2 (09:58→21:56)
[2022-05-04] MEDS: guaiFENesin ER 600 MG TAB PO SCH ×3 (09:58→21:56)
[2022-05-04] MEDS: LACRILUBE (AKWA TEARS) OPHTH OINT 3.5GM OU SCH ×3 (09:59→21:57)
[2022-05-04] MEDS: FLUTICASONE PROP 0.05% NASAL SPRAY 16 GM (FLONASE) NARES SCH ×2 (09:59→21:56)
[2022-05-04] MEDS: ROSUVASTATIN 10 MG TAB (CRESTOR) PO SCH (21:56)
[2022-05-04] MEDS: TAMSULOSIN 0.4 MG CAP PO SCH (21:56)
[2022-05-05] MEDS: PYRIDOSTIGMINE 60MG TABLET PO SCH ×2 (05:19→11:42)
[2022-05-05 05:23] VITALS: BP 118/69
[2022-05-05] MEDS: MIRALAX *UNIT DOSE* 17GM PACKET PO SCH (09:00)
[2022-05-05] MEDS: VITAMIN D 1,000 INTERNATIONAL UNITS TABLET PO SCH (09:08)
[2022-05-05 09:09] VITALS: BP 118/69
[2022-05-05] MEDS: predniSONE 5 MG TAB PO SCH (09:09)
[2022-05-05] MEDS: FOLIC ACID 1MG TAB PO SCH (09:09)
[2022-05-05] MEDS: APIXABAN 5 MG TAB (ELIQUIS) PO SCH (09:09)
[2022-05-05] MEDS: CYANOCOBALAMIN 500 MCG TAB PO SCH (09:09)
[2022-05-05] MEDS: ASPIRIN 81MG ENTERIC TABLET PO SCH (09:09)
[2022-05-05] MEDS: guaiFENesin ER 600 MG TAB PO SCH (09:09)
[2022-05-05] MEDS: PANTOPRAZOLE 40MG TAB (PROTONIX) PO SCH (09:09)
[2022-05-05] MEDS: FLUTICASONE PROP 0.05% NASAL SPRAY 16 GM (FLONASE) NARES SCH (09:10)
[2022-05-05] MEDS: LACRILUBE (AKWA TEARS) OPHTH OINT 3.5GM OU SCH (09:10)
[2022-05-05] MEDS: SENOKOT S TAB PO SCH (09:10)
[2022-05-05] MEDS ORDERED: AMLO1TAB25 PO (11:28)
[2022-05-05] MEDS ORDERED: ELIQ5TAB PO (11:28)
[2022-05-05] MEDS ORDERED: SENN-52 PO (11:28)
== END 2022-05-05 13:05 | DRG 300 ==
LOC: M ED 13:32 → EDBD 13:32 → M ED INP 13:33 → UNDOADMOB 18:08 → CANRESERV 02-03 14:36 → ENRESERV 02-03 14:36 → M ED INP 02-04 18:15 → M MSPAV 02-04 18:15 → OBSVTOIN 02-04 20:06 → M MSPAV 02-16 20:57
PROVIDERS: ADMIT Internal Medicine; ATTEND Family Medicine
PROC: B246ZZZ Ultrasonography of Right and Left Heart (ICD-10-PCS; principal; 2022-02-03)
DX: I82.442 Acute embolism and thrombosis of left tibial vein (principal); N25.81 Secondary hyperparathyroidism of renal origin; M62.82 Rhabdomyolysis; I67.3 Progressive vascular leukoencephalopathy; I82.452 Acute embolism and thrombosis of left peroneal vein; I82.402 Acute embolism and thrombosis of unspecified deep veins of left lower extremity; N18.30 Chronic kidney disease, stage 3 unspecified; M19.011 Primary osteoarthritis, right shoulder; N40.0 Benign prostatic hyperplasia without lower urinary tract symptoms; G70.00 Myasthenia gravis without (acute) exacerbation; M21.372 Foot drop, left foot; I12.9 Hypertensive chronic kidney disease with stage 1 through stage 4 chronic kidney disease, or unspecified chronic kidney disease; M25.411 Effusion, right shoulder; Z66 Do not resuscitate; I77.811 Abdominal aortic ectasia; M47.816 Spondylosis without myelopathy or radiculopathy, lumbar region; R00.0 Tachycardia, unspecified; R29.6 Repeated falls; K59.09 Other constipation; R07.89 Other chest pain; F01.50 Vascular dementia, unspecified severity, without behavioral disturbance, psychotic disturbance, mood disturbance, and anxiety; R54 Age-related physical debility; K21.9 Gastro-esophageal reflux disease without esophagitis; J10.89 Influenza due to other identified influenza virus with other manifestations; K44.9 Diaphragmatic hernia without obstruction or gangrene; R13.10 Dysphagia, unspecified; I27.20 Pulmonary hypertension, unspecified; G47.00 Insomnia, unspecified; R06.6 Hiccough; K57.90 Diverticulosis of intestine, part unspecified, without perforation or abscess without bleeding; Z79.899 Other long term (current) drug therapy; Z79.52 Long term (current) use of systemic steroids; Z88.0 Allergy status to penicillin; Z88.4 Allergy status to anesthetic agent; Z91.013 Allergy to seafood; Z79.82 Long term (current) use of aspirin; Z86.73 Personal history of transient ischemic attack (TIA), and cerebral infarction without residual deficits; Z87.891 Personal history of nicotine dependence

== ENCOUNTER → 2022-07-01 | Outpatient (REF) | payer MEDICARE, OTHER ==
[~2022-07-01] MED LIST changes: +AMLO1TAB25 PO; +CYAN100049 PO; +DIPH-435 PO; +DOXA2TAB3 PO; +ECOT81TA5 PO; +ELIQ5TAB PO; +FOLI1TAB11 PO; +K-TA10TA PO; +LOSA100T46 PO; +MED REC COMMENT; +METH2.5T48 PO; +OMEP-173 PO; +PRED5TA PO; +PYRI60TA2 PO; +ROSU40TA4 PO; +SENN-52 PO; +SILD100T PO; +TRAM50TA2 PO; +VITA100016 PO
[2022-07-01 06:48] LABS: HEMOGLOBIN 10.5 g/dl (13.5-17.5); MEAN CORPUSCULAR HEMOGLOBIN 28.9 pg (27.0-33.0); MEAN CORPUSCULAR HGB CONC 31.8 g/dl (32.0-36.5); MEAN CORPUSCULAR VOLUME 90.9 fl (80.0-96.0); PLATELET COUNT, AUTOMATED 181 10^3/uL (150-450); RED BLOOD COUNT 3.63 10^6/uL (4.30-6.10); WHITE BLOOD COUNT 6.8 10^3/uL (4.0-10.0)
[2022-07-01 07:13] LABS: ALBUMIN 3.2 G/DL (3.2-5.2); ALKALINE PHOSPHATASE 44 U/L (46-116); ALT/SGPT 18 U/L (7.0-40); AST/SGOT 18 U/L (<34); BILIRUBIN,TOTAL 0.4 MG/DL (0.3-1.2); BLOOD UREA NITROGEN 19 MG/DL (9-23); CALCIUM LEVEL 8.6 MG/DL (8.3-10.6); CARBON DIOXIDE LEVEL 29 MMOL/L (20-31); CHLORIDE LEVEL 108 MMOL/L (98-107); GLOMERULAR FILTRATION RATE > 60.0 (>35); GLUCOSE, FASTING 97 MG/DL (74-106); POTASSIUM SERUM 3.5 MMOL/L (3.5-5.1); SODIUM LEVEL 139 MMOL/L (136-145); TOTAL PROTEIN 5.4 G/DL (5.7-8.2)
== END ==
LOC: SKLAB5 09:39
PROVIDERS: ATTEND Internal Medicine
DX: U07.1 COVID-19 (principal); Z79.899 Other long term (current) drug therapy

== ENCOUNTER → 2022-07-07 | Outpatient (REF) | payer MEDICARE, OTHER ==
[2022-07-07 09:31] LABS: HEMOGLOBIN 11.6 g/dl (13.5-17.5); MEAN CORPUSCULAR HEMOGLOBIN 28.8 pg (27.0-33.0); MEAN CORPUSCULAR HGB CONC 32.2 g/dl (32.0-36.5); MEAN CORPUSCULAR VOLUME 89.3 fl (80.0-96.0); PLATELET COUNT, AUTOMATED 301 10^3/uL (150-450); RED BLOOD COUNT 4.03 10^6/uL (4.30-6.10); WHITE BLOOD COUNT 7.1 10^3/uL (4.0-10.0)
[2022-07-07 09:55] LABS: ALBUMIN 3.5 G/DL (3.2-5.2); ALKALINE PHOSPHATASE 48 U/L (46-116); ALT/SGPT 16 U/L (7.0-40); AST/SGOT 13 U/L (<34); BILIRUBIN,TOTAL 0.4 MG/DL (0.3-1.2); BLOOD UREA NITROGEN 32 MG/DL (9-23); CALCIUM LEVEL 8.6 MG/DL (8.3-10.6); CARBON DIOXIDE LEVEL 28 MMOL/L (20-31); CHLORIDE LEVEL 106 MMOL/L (98-107); CREATININE FOR GFR 1.18 MG/DL (0.70-1.30); GLOMERULAR FILTRATION RATE > 60.0 (>35); GLUCOSE, FASTING 82 MG/DL (74-106); POTASSIUM SERUM 3.6 MMOL/L (3.5-5.1); SODIUM LEVEL 141 MMOL/L (136-145); TOTAL PROTEIN 5.9 G/DL (5.7-8.2)
== END ==
LOC: SKLAB5 11:01
PROVIDERS: ATTEND Internal Medicine
DX: U07.1 COVID-19 (principal); Z79.899 Other long term (current) drug therapy

== ENCOUNTER → 2022-10-08 | Outpatient (REF) | payer OTHER ==
[~2022-10-08] MED LIST changes: -DOXA2TAB3 PO; +DOXA2TAB61 PO; -K-TA10TA PO; +POTA-164 PO
[2022-10-08 16:16] LABS: VITAMIN B12 LEVEL > 2000 PG/ML (211-911)
== END ==
LOC: SKLAB5 14:50
PROVIDERS: ATTEND Internal Medicine
DX: E78.5 Hyperlipidemia, unspecified (principal); D64.9 Anemia, unspecified; F03.90 Unspecified dementia, unspecified severity, without behavioral disturbance, psychotic disturbance, mood disturbance, and anxiety

== ENCOUNTER → 2022-12-15 | Outpatient (CLI) | payer OTHER, MEDICAID ==
[~2022-12-15] MED LIST changes: +E-Z-GAS II EFFERVESCENT PACKET (SODIUM BICARB./CITRIC ACID/SIMETHICONE) As Ordered ONE; +E-Z-HD 98% w/w 340GM SUSP BTL As Ordered ONE; +E-Z-PAQUE 96% w/w SUSP 176GM BTL As Ordered ONE
== END ==
LOC: M RAD 08:36
PROVIDERS: ATTEND Internal Medicine
DX: E78.5 Hyperlipidemia, unspecified (principal); D64.9 Anemia, unspecified

== ENCOUNTER 2023-03-26 19:15 | Inpatient (IN) | payer OTHER, MEDICAID ==
[~2023-03-26] VITALS: Ht 188 cm; Wt 75.2 kg
[~2023-03-26 19:15] MED LIST changes: -E-Z-GAS II EFFERVESCENT PACKET (SODIUM BICARB./CITRIC ACID/SIMETHICONE) As Ordered ONE; -E-Z-HD 98% w/w 340GM SUSP BTL As Ordered ONE; -E-Z-PAQUE 96% w/w SUSP 176GM BTL As Ordered ONE; +IRBE300T25 PO; -IRBE300T7 PO
[2023-03-26 20:24] LABS: BASO % 0.2 % (0.0-1.0); EOS % 0.1 % (0.0-3.0); HEMATOCRIT 30.3 % (42.0-52.0); HEMOGLOBIN 9.6 g/dl (13.5-17.5); LYMPH % 7.3 % (24.0-44.0); MEAN CORPUSCULAR HEMOGLOBIN 25.3 pg (27.0-33.0); MEAN CORPUSCULAR HGB CONC 31.7 g/dl (32.0-36.5); MEAN CORPUSCULAR VOLUME 79.9 fl (80.0-96.0); MONO # 1.7 10^3/uL (0.0-0.8); MONO % 11.8 % (2.0-8.0); NEUTROPHILS # 11.5 10^3/uL (1.5-8.5); NEUTROPHILS % 80.2 % (36.0-66.0); PLATELET COUNT, AUTOMATED 277 10^3/uL (150-450); RED BLOOD COUNT 3.79 10^6/uL (4.30-6.10); WHITE BLOOD COUNT 14.3 10^3/uL (4.0-10.0)
[2023-03-26 20:38] LABS: INR 1.3; PROTHROMBIN TIME 15.8 SECONDS (12.5-14.5)
[2023-03-26 20:39] LABS: PARTIAL THROMBOPLASTIN TIME 31.4 SECONDS (24.8-34.2)
[2023-03-26 20:47] LABS: ALBUMIN 2.7 G/DL (3.2-5.2); BILIRUBIN,DIRECT 0.2 MG/DL (<0.4); BILIRUBIN,TOTAL 0.6 MG/DL (0.3-1.2); CALCIUM LEVEL 8.9 MG/DL (8.3-10.6); CREATININE FOR GFR 1.29 MG/DL (0.70-1.30); GLOMERULAR FILTRATION RATE 56.4 (>35); POTASSIUM SERUM 3.7 MMOL/L (3.5-5.1); TOTAL PROTEIN 5.4 G/DL (5.7-8.2)
[2023-03-26 21:00] LABS: RSV AMPLIFICATION NEGATIVE (NEGATIVE)
[2023-03-26 21:38] LABS: CK-MB VALUE MASS 1.7 NG/ML (<3.6); MB/CK RELATIVE INDEX 0.48 (< OR =4)
[2023-03-26 22:00] LABS: CK-MB VALUE MASS 2.3 NG/ML (<3.6); MB/CK RELATIVE INDEX 0.56 (< OR =4)
[2023-03-26] MEDS: NS 1,000 ML IV SCH (23:38)
[2023-03-26] MEDS: NS 500 ML IV ONE (23:38)
[2023-03-26 23:52] LABS: APPEARANCE, URINE HAZY (CLEAR); BACTERIA, URINE AUTO NEGATIVE (NEGATIVE); BILIRUBIN, URINE AUTO NEGATIVE (NEGATIVE); BLOOD, URINE BLOOD NEGATIVE (NEGATIVE); COLOR, URINE AMBER (YELLOW); GLUCOSE, URINE (UA) AUTO NEGATIVE (NEGATIVE); GRANULAR CAST, URINE AUTO 3 /LPF; KETONE, URINE AUTO NEGATIVE (NEGATIVE); LEUKOCYTE ESTERASE, URINE AUTO NEGATIVE (NEGATIVE); MUCUS, URINE LARGE (NEGATIVE); NITRITE, URINE AUTO NEGATIVE (NEGATIVE); PROTEIN, URINE AUTO 2+ mg/dL (NEGATIVE); RBC, URINE AUTO 1 /HPF (0-3); SPECIFIC GRAVITY URINE AUTO 1.027 (1.002-1.035); SQUAMOUS EPITHELIAL CELL UR AU 0 /HPF (0-6); WBC, URINE AUTO 4 /HPF (0-3)
[2023-03-27] MEDS ORDERED: AMLO1TAB25 PO (00:17)
[2023-03-27] MEDS ORDERED: VITA400T10 PO (00:17)
[2023-03-27] MEDS: PIPERACILLIN/TAZOBACTAM SOD 3.375 GM in D5W MINI-BAG PLUS 50 ML IV ONE (00:18)
[2023-03-27] MEDS ORDERED: ACET1TAB55 PO (00:19)
[2023-03-27] MEDS ORDERED: DONE10TA90 PO (00:19)
[2023-03-27] MEDS ORDERED: EZET10TA21 PO (00:19)
[2023-03-27] MEDS ORDERED: REFR0.5D8 OP (00:19)
[2023-03-27] MEDS ORDERED: HOME MED LIST COMPLETE! XX SCH (00:25)
[2023-03-27 03:43] VITALS: BP 152/90; TEMP 98.4; O2SAT 99
[2023-03-27] MEDS: PIPERACILLIN/TAZOBACTAM SOD 3.375 GM in D5W MINI-BAG PLUS 50 ML IV SCH (05:49)
[2023-03-27 07:49] LABS: BASO % 0.2 % (0.0-1.0); EOS # 0.1 10^3/uL (0.0-0.5); EOS % 0.7 % (0.0-3.0); HEMATOCRIT 29.3 % (42.0-52.0); LYMPH # 1.4 10^3/uL (1.5-5.0); LYMPH % 11.3 % (24.0-44.0); MEAN CORPUSCULAR HEMOGLOBIN 24.9 pg (27.0-33.0); MEAN CORPUSCULAR HGB CONC 30.7 g/dl (32.0-36.5); MEAN CORPUSCULAR VOLUME 80.9 fl (80.0-96.0); MONO # 1.4 10^3/uL (0.0-0.8); NEUTROPHILS # 9.1 10^3/uL (1.5-8.5); NEUTROPHILS % 75.5 % (36.0-66.0); PLATELET COUNT, AUTOMATED 251 10^3/uL (150-450); RED BLOOD COUNT 3.62 10^6/uL (4.30-6.10)
[2023-03-27 08:11] LABS: CPK CREATINE PHOSPHOKINASE 464 U/L (46-171)
[2023-03-27] MEDS: PYRIDOSTIGMINE 60MG TABLET PO SCH (08:43)
[2023-03-27] MEDS: predniSONE 5 MG TAB PO SCH (08:43)
[2023-03-27] MEDS: ASPIRIN 81MG ENTERIC TABLET PO SCH (08:43)
[2023-03-27] MEDS: HEPARIN SOD (PORCINE) 5000UNITS/ML 1ML VIAL/SYRINGE SC SCH (08:43)
[2023-03-27 09:04] LABS: ALBUMIN 2.3 G/DL (3.2-5.2); ALKALINE PHOSPHATASE 277 U/L (46-116); ALT/SGPT 60 U/L (7.0-40); AST/SGOT 145 U/L (<34); BILIRUBIN,TOTAL 0.7 MG/DL (0.3-1.2); BLOOD UREA NITROGEN 28 MG/DL (9-23); CALCIUM LEVEL 8.5 MG/DL (8.3-10.6); CARBON DIOXIDE LEVEL 29 MMOL/L (20-31); CHLORIDE LEVEL 106 MMOL/L (98-107); GLOMERULAR FILTRATION RATE > 60.0 (>35); GLUCOSE, FASTING 89 MG/DL (74-106); POTASSIUM SERUM 3.8 MMOL/L (3.5-5.1); SODIUM LEVEL 140 MMOL/L (136-145); TOTAL PROTEIN 4.9 G/DL (5.7-8.2)
[2023-03-27] MEDS ORDERED: PROHANCE 279.3MG/ML 15ML VIAL As Ordered ONE (12:09)
[2023-03-27 15:00] VITALS: BP 125/67; TEMP 97.5; O2SAT 95
[2023-03-27] MEDS: DONEPEZIL 5 MG TAB PO SCH (15:31)
[2023-03-27] MEDS: ACETAMINOPHEN TAB 650MG DOSE (2X325MG) PO PRN (15:32)
[2023-03-27 18:39] LABS: CA19-9 TUMOR MARKER,CARBOHYDRA 101134.2 U/ML (<35.0)
[2023-03-27] MEDS: ROSUVASTATIN 10 MG TAB (CRESTOR) PO SCH (20:23)
[2023-03-27] MEDS: TAMSULOSIN 0.4 MG CAP PO SCH (20:23)
[2023-03-27] MEDS: diphenhydrAMINE 25MG CAP PO PRN (20:23)
[2023-03-27] MEDS: OMEPRAZOLE 20MG CAP PO SCH (20:23)
[2023-03-27] MEDS: EZETIMIBE 10MG TABLET (ZETIA) PO SCH (20:23)
[2023-03-27 20:34] VITALS: BP 126/76; TEMP 97.9; O2SAT 95
[2023-03-28 05:08] VITALS: BP 136/74; TEMP 98.6; O2SAT 96
[2023-03-28 05:32] LABS: BASO % 0.3 % (0.0-1.0); EOS # 0.2 10^3/uL (0.0-0.5); EOS % 2.2 % (0.0-3.0); HEMATOCRIT 27.3 % (42.0-52.0); HEMOGLOBIN 8.7 g/dl (13.5-17.5); LYMPH # 1.1 10^3/uL (1.5-5.0); MEAN CORPUSCULAR HEMOGLOBIN 25.4 pg (27.0-33.0); MEAN CORPUSCULAR HGB CONC 31.9 g/dl (32.0-36.5); MEAN CORPUSCULAR VOLUME 79.8 fl (80.0-96.0); MONO % 10.3 % (2.0-8.0); NEUTROPHILS # 7.1 10^3/uL (1.5-8.5); PLATELET COUNT, AUTOMATED 244 10^3/uL (150-450); RED BLOOD COUNT 3.42 10^6/uL (4.30-6.10); WHITE BLOOD COUNT 9.5 10^3/uL (4.0-10.0)
[2023-03-28] MEDS ORDERED: MAALOX 30 ML SUSP *UDC PO PRN (05:50)
[2023-03-28 05:57] LABS: ALBUMIN 2.1 G/DL (3.2-5.2); ALKALINE PHOSPHATASE 281 U/L (46-116); ALT/SGPT 55 U/L (7.0-40); AST/SGOT 100 U/L (<34); BILIRUBIN,TOTAL 0.6 MG/DL (0.3-1.2); BLOOD UREA NITROGEN 27 MG/DL (9-23); CALCIUM LEVEL 8.3 MG/DL (8.3-10.6); CARBON DIOXIDE LEVEL 26 MMOL/L (20-31); CHLORIDE LEVEL 105 MMOL/L (98-107); CREATININE FOR GFR 1.22 MG/DL (0.70-1.30); GLOMERULAR FILTRATION RATE > 60.0 (>35); GLUCOSE, FASTING 89 MG/DL (74-106); POTASSIUM SERUM 3.5 MMOL/L (3.5-5.1); SODIUM LEVEL 137 MMOL/L (136-145); TOTAL PROTEIN 4.7 G/DL (5.7-8.2)
[2023-03-28 06:06] LABS: CK-MB VALUE MASS < 1.0 NG/ML (<3.6)
[2023-03-28 06:07] LABS: CPK CREATINE PHOSPHOKINASE 253 U/L (46-171); MB/CK RELATIVE INDEX 0.39 (< OR =4)
[2023-03-28 06:09] LABS: PROCALCITONIN 0.98 ng/ml
[2023-03-28 09:03] LABS: CK-MB VALUE MASS < 1.0 NG/ML (<3.6)
[2023-03-28 09:04] LABS: CPK CREATINE PHOSPHOKINASE 248 U/L (46-171)
[2023-03-28 11:05] VITALS: BP 118/64
[2023-03-28] MEDS: FUROSEMIDE 40MG/4ML VIAL IV ONE (11:13)
[2023-03-28 11:20] LABS: IRON (FE) 20 UG/DL (65-175); PERCENT SATURATION 9.5 % (19.7-50.0); TOTAL IRON BINDING CAPACITY 210 UG/DL (250-425)
[2023-03-28 11:21] LABS: FERRITIN 504.6 NG/ML (10.5-307.3)
[2023-03-28 11:22] LABS: FOLATE 13.6 NG/ML (>5.4); VITAMIN B12 LEVEL 1343 PG/ML (211-911)
[2023-03-28 14:00] VITALS: BP 120/64; TEMP 97.5; O2SAT 97
[2023-03-28 14:15] VITALS: BP 145/75; TEMP 97.7; O2SAT 100
[2023-03-28 20:40] VITALS: BP 145/84; TEMP 97.9; O2SAT 98
[2023-03-29 05:35] VITALS: BP 132/66; TEMP 97.9; O2SAT 97
[2023-03-29 07:51] LABS: BASO % 0.3 % (0.0-1.0); EOS # 0.2 10^3/uL (0.0-0.5); EOS % 1.8 % (0.0-3.0); HEMATOCRIT 30.8 % (42.0-52.0); HEMOGLOBIN 9.7 g/dl (13.5-17.5); LYMPH # 1.2 10^3/uL (1.5-5.0); MEAN CORPUSCULAR HEMOGLOBIN 25.3 pg (27.0-33.0); MEAN CORPUSCULAR HGB CONC 31.5 g/dl (32.0-36.5); MEAN CORPUSCULAR VOLUME 80.2 fl (80.0-96.0); NEUTROPHILS # 6.7 10^3/uL (1.5-8.5); NEUTROPHILS % 73.7 % (36.0-66.0); PLATELET COUNT, AUTOMATED 297 10^3/uL (150-450); RED BLOOD COUNT 3.84 10^6/uL (4.30-6.10); WHITE BLOOD COUNT 9.1 10^3/uL (4.0-10.0)
[2023-03-29 08:02] LABS: BLOOD UREA NITROGEN 19 MG/DL (9-23); CALCIUM LEVEL 8.3 MG/DL (8.3-10.6); CARBON DIOXIDE LEVEL 28 MMOL/L (20-31); CHLORIDE LEVEL 103 MMOL/L (98-107); CREATININE FOR GFR 1.08 MG/DL (0.70-1.30); GLOMERULAR FILTRATION RATE > 60.0 (>35); GLUCOSE, FASTING 89 MG/DL (74-106); POTASSIUM SERUM 3.3 MMOL/L (3.5-5.1); SODIUM LEVEL 138 MMOL/L (136-145)
[2023-03-29 14:00] VITALS: BP 141/83; TEMP 98.1; O2SAT 99
[2023-03-29 22:00] VITALS: BP 141/84; TEMP 98.4; O2SAT 98
[2023-03-30] VITALS (7 sets, daily range): BP systolic 128–159; BP diastolic 77–85; TEMP 97.9–99; O2SAT 95–98
[2023-03-30 06:12] LABS: BASO % 0.5 % (0.0-1.0); EOS # 0.2 10^3/uL (0.0-0.5); EOS % 2.2 % (0.0-3.0); HEMATOCRIT 33.6 % (42.0-52.0); HEMOGLOBIN 10.3 g/dl (13.5-17.5); LYMPH # 1.6 10^3/uL (1.5-5.0); LYMPH % 18.1 % (24.0-44.0); MEAN CORPUSCULAR HEMOGLOBIN 24.8 pg (27.0-33.0); MEAN CORPUSCULAR HGB CONC 30.7 g/dl (32.0-36.5); MEAN CORPUSCULAR VOLUME 80.8 fl (80.0-96.0); MONO % 11.5 % (2.0-8.0); NEUTROPHILS # 5.8 10^3/uL (1.5-8.5); NEUTROPHILS % 67.5 % (36.0-66.0); PLATELET COUNT, AUTOMATED 345 10^3/uL (150-450); RED BLOOD COUNT 4.16 10^6/uL (4.30-6.10); WHITE BLOOD COUNT 8.7 10^3/uL (4.0-10.0)
[2023-03-30 06:37] LABS: BLOOD UREA NITROGEN 15 MG/DL (9-23); CALCIUM LEVEL 8.5 MG/DL (8.3-10.6); CARBON DIOXIDE LEVEL 28 MMOL/L (20-31); CHLORIDE LEVEL 103 MMOL/L (98-107); GLOMERULAR FILTRATION RATE > 60.0 (>35); GLUCOSE, FASTING 85 MG/DL (74-106); POTASSIUM SERUM 3.8 MMOL/L (3.5-5.1); SODIUM LEVEL 137 MMOL/L (136-145)
[2023-03-30] MEDS: diphenhydrAMINE 50MG/ML VIAL IV ONE (10:54)
[2023-03-30] MEDS ORDERED: CHLOROPROCAINE PRES. FREE 2% 20ML VIAL As Ordered ONE (11:17)
[2023-03-31 04:24] VITALS: BP 136/72; TEMP 98.6; O2SAT 96
[2023-03-31 06:24] LABS: BASO # 0.1 10^3/uL (0.0-0.2); BASO % 0.6 % (0.0-1.0); EOS # 0.3 10^3/uL (0.0-0.5); EOS % 3.3 % (0.0-3.0); HEMATOCRIT 31.7 % (42.0-52.0); HEMOGLOBIN 9.9 g/dl (13.5-17.5); LYMPH # 1.5 10^3/uL (1.5-5.0); LYMPH % 15.6 % (24.0-44.0); MEAN CORPUSCULAR HEMOGLOBIN 24.7 pg (27.0-33.0); MEAN CORPUSCULAR HGB CONC 31.2 g/dl (32.0-36.5); MEAN CORPUSCULAR VOLUME 79.1 fl (80.0-96.0); MONO # 1.1 10^3/uL (0.0-0.8); MONO % 11.6 % (2.0-8.0); NEUTROPHILS # 6.4 10^3/uL (1.5-8.5); NEUTROPHILS % 68.7 % (36.0-66.0); PLATELET COUNT, AUTOMATED 367 10^3/uL (150-450); RED BLOOD COUNT 4.01 10^6/uL (4.30-6.10); WHITE BLOOD COUNT 9.4 10^3/uL (4.0-10.0)
[2023-03-31 06:54] LABS: ALBUMIN 2.2 G/DL (3.2-5.2); ALKALINE PHOSPHATASE 375 U/L (46-116); ALT/SGPT 70 U/L (7.0-40); AST/SGOT 92 U/L (<34); BILIRUBIN,TOTAL 0.4 MG/DL (0.3-1.2); BLOOD UREA NITROGEN 19 MG/DL (9-23); CALCIUM LEVEL 8.4 MG/DL (8.3-10.6); CARBON DIOXIDE LEVEL 27 MMOL/L (20-31); CHLORIDE LEVEL 102 MMOL/L (98-107); GLOMERULAR FILTRATION RATE > 60.0 (>35); GLUCOSE, FASTING 88 MG/DL (74-106); MAGNESIUM LEVEL 2.1 MG/DL (1.8-2.4); POTASSIUM SERUM 3.8 MMOL/L (3.5-5.1); SODIUM LEVEL 135 MMOL/L (136-145); TOTAL PROTEIN 5.2 G/DL (5.7-8.2)
[2023-03-31 14:00] VITALS: BP 128/71; TEMP 97.7; O2SAT 97
[2023-03-31] MEDS: HEPARIN SOD (PORCINE) 5000UNITS/ML 1ML VIAL/SYRINGE SQ SCH (14:36)
[2023-03-31 22:00] VITALS: BP 128/74; TEMP 98.6; O2SAT 98
[2023-04-01 06:00] VITALS: BP 145/89; TEMP 98.4; O2SAT 97
[2023-04-01 07:01] LABS: ALBUMIN 2.3 G/DL (3.2-5.2); ALKALINE PHOSPHATASE 418 U/L (46-116); ALT/SGPT 71 U/L (7.0-40); AST/SGOT 92 U/L (<34); BILIRUBIN,TOTAL 0.4 MG/DL (0.3-1.2); BLOOD UREA NITROGEN 19 MG/DL (9-23); CALCIUM LEVEL 8.6 MG/DL (8.3-10.6); CARBON DIOXIDE LEVEL 27 MMOL/L (20-31); CHLORIDE LEVEL 102 MMOL/L (98-107); CREATININE FOR GFR 1.02 MG/DL (0.70-1.30); GLOMERULAR FILTRATION RATE > 60.0 (>35); GLUCOSE, FASTING 91 MG/DL (74-106); MAGNESIUM LEVEL 2.1 MG/DL (1.8-2.4); POTASSIUM SERUM 3.8 MMOL/L (3.5-5.1); SODIUM LEVEL 135 MMOL/L (136-145); TOTAL PROTEIN 5.3 G/DL (5.7-8.2)
[2023-04-01 07:42] LABS: BASO # 0.1 10^3/uL (0.0-0.2); BASO % 0.5 % (0.0-1.0); EOS # 0.3 10^3/uL (0.0-0.5); HEMATOCRIT 31.8 % (42.0-52.0); LYMPH # 1.5 10^3/uL (1.5-5.0); LYMPH % 13.7 % (24.0-44.0); MEAN CORPUSCULAR HEMOGLOBIN 24.8 pg (27.0-33.0); MEAN CORPUSCULAR HGB CONC 31.4 g/dl (32.0-36.5); MEAN CORPUSCULAR VOLUME 78.9 fl (80.0-96.0); MONO # 1.1 10^3/uL (0.0-0.8); MONO % 10.5 % (2.0-8.0); NEUTROPHILS # 7.6 10^3/uL (1.5-8.5); PLATELET COUNT, AUTOMATED 378 10^3/uL (150-450); RED BLOOD COUNT 4.03 10^6/uL (4.30-6.10); WHITE BLOOD COUNT 10.6 10^3/uL (4.0-10.0)
[2023-04-01 08:41] VITALS: BP 120/76
[2023-04-01] MEDS: ASPIRIN 81MG ENTERIC TABLET PO SCH (08:41)
[2023-04-01] MEDS ORDERED: ISOVUE-370 76% 100ML VIAL As Ordered ONE (11:14)
[2023-04-01] MEDS ORDERED: CEFD1CAP9 PO (12:55)
[2023-04-01] MEDS ORDERED: METR-265 PO (12:57)
== END 2023-04-01 14:37 | disposition home or self-care (01) | DRG 872 ==
LOC: M ED 19:15 → M ED INP 03-27 01:24 → M MS5PR 03-27 03:46 → M MSPAV 03-27 12:55
PROVIDERS: ADMIT Family Medicine; ATTEND Student in an Organized Health Care Education/Training Program
PROC: 0FB23ZX Excision of Left Lobe Liver, Percutaneous Approach, Diagnostic (ICD-10-PCS; principal; 2023-03-30 12:00)
DX: A41.9 Sepsis, unspecified organism (principal); K81.0 Acute cholecystitis; N25.81 Secondary hyperparathyroidism of renal origin; M62.82 Rhabdomyolysis; I50.32 Chronic diastolic (congestive) heart failure; I13.0 Hypertensive heart and chronic kidney disease with heart failure and stage 1 through stage 4 chronic kidney disease, or unspecified chronic kidney disease; C78.7 Secondary malignant neoplasm of liver and intrahepatic bile duct; C18.9 Malignant neoplasm of colon, unspecified; R07.89 Other chest pain; G70.00 Myasthenia gravis without (acute) exacerbation; N18.30 Chronic kidney disease, stage 3 unspecified; D50.9 Iron deficiency anemia, unspecified; N40.1 Benign prostatic hyperplasia with lower urinary tract symptoms; Z66 Do not resuscitate; F01.50 Vascular dementia, unspecified severity, without behavioral disturbance, psychotic disturbance, mood disturbance, and anxiety; M25.411 Effusion, right shoulder; M47.816 Spondylosis without myelopathy or radiculopathy, lumbar region; E78.5 Hyperlipidemia, unspecified; I77.811 Abdominal aortic ectasia; G47.00 Insomnia, unspecified; M19.011 Primary osteoarthritis, right shoulder; K21.9 Gastro-esophageal reflux disease without esophagitis; Z79.82 Long term (current) use of aspirin; Z79.52 Long term (current) use of systemic steroids; Z79.899 Other long term (current) drug therapy; Z91.013 Allergy to seafood; Z88.4 Allergy status to anesthetic agent; Z87.891 Personal history of nicotine dependence; Z86.73 Personal history of transient ischemic attack (TIA), and cerebral infarction without residual deficits

== ENCOUNTER 2023-04-28 15:28 | Inpatient (IN) | payer OTHER, MEDICAID ==
[~2023-04-28] VITALS: Ht 188 cm; Wt 61.9 kg
[~2023-04-28 15:28] MED LIST changes: +ACET1TAB55 PO; +CEFD1CAP9 PO; +DONE10TA90 PO; +EZET10TA21 PO; +METR-265 PO; +REFR0.5D8 OU; +VITA400T10 PO
[2023-04-28 17:27] LABS: VENOUS BASE EXCESS 1.7 (-2.0-2.0); VENOUS O2 SATURATION 64.2 % (60.0-80.0); VENOUS PARTIAL PRESSURE CO2 51.6 mmHg (38.0-50.0); VENOUS PARTIAL PRESSURE O2 37.8 mmHg (30.0-50.0); VENOUS PH 7.353 UNITS (7.330-7.430); VENOUS STANDARD HCO3 25.3 MMOL/L; VENOUS TOTAL CO2 29.6 MMOL/L (24.0-28.0)
[2023-04-28 17:38] LABS: BASO % 0.3 % (0.0-1.0); EOS # 0.1 10^3/uL (0.0-0.5); EOS % 0.6 % (0.0-3.0); HEMATOCRIT 34.5 % (42.0-52.0); HEMOGLOBIN 10.7 g/dl (13.5-17.5); LYMPH # 1.2 10^3/uL (1.5-5.0); LYMPH % 8.2 % (24.0-44.0); MEAN CORPUSCULAR HEMOGLOBIN 25.1 pg (27.0-33.0); MONO # 1.3 10^3/uL (0.0-0.8); MONO % 8.8 % (2.0-8.0); NEUTROPHILS % 81.7 % (36.0-66.0); PLATELET COUNT, AUTOMATED 417 10^3/uL (150-450); RED BLOOD COUNT 4.26 10^6/uL (4.30-6.10); WHITE BLOOD COUNT 14.7 10^3/uL (4.0-10.0)
[2023-04-28 18:06] LABS: THYROID STIMULATING HORMONE 0.577 uIU/ML (0.55-4.78)
[2023-04-28 18:08] LABS: ALBUMIN 2.5 G/DL (3.2-5.2); BILIRUBIN,DIRECT 0.2 MG/DL (<0.4); BILIRUBIN,TOTAL 0.5 MG/DL (0.3-1.2); CALCIUM LEVEL 9.4 MG/DL (8.3-10.6); CREATININE FOR GFR 1.52 MG/DL (0.70-1.30); GLOMERULAR FILTRATION RATE 46.6 (>35)
[2023-04-28 18:15] LABS: TOTAL PROTEIN 5.5 G/DL (5.7-8.2)
[2023-04-28] MEDS: NS 1,000 ML IV SCH ×2 (18:51→22:51)
[2023-04-28] MEDS: cefTRIAXone SOD 2 GM in D5W MINI-BAG PLUS 50 ML IV ONE (18:51)
[2023-04-28 19:02] LABS: PROCALCITONIN 0.42 ng/ml
[2023-04-28] MEDS ORDERED: [UNRECOGNIZED DRUG - OTHER] (20:18)
[2023-04-28] MEDS ORDERED: EQ S0.65 NARES (20:18)
[2023-04-28] MEDS ORDERED: HOME MED LIST COMPLETE! XX SCH (20:20)
[2023-04-28] MEDS ORDERED: ACETAMINOPHEN TAB 650MG DOSE (2X325MG) PO PRN (21:05)
[2023-04-28] MEDS: TAMSULOSIN 0.4 MG CAP PO SCH (21:45)
[2023-04-28] MEDS: ROSUVASTATIN 10 MG TAB (CRESTOR) PO SCH (21:45)
[2023-04-28] MEDS: PYRIDOSTIGMINE 60MG TABLET PO SCH (22:28)
[2023-04-28 22:44] VITALS: BP 139/74; TEMP 98.7; O2SAT 98
[2023-04-28] MEDS: APIXABAN 5 MG TAB (ELIQUIS) PO STA (23:36)
[2023-04-29 04:19] VITALS: BP 135/71; TEMP 99.4; O2SAT 98
[2023-04-29 06:00] LABS: BASO # 0.1 10^3/uL (0.0-0.2); BASO % 0.4 % (0.0-1.0); EOS # 0.1 10^3/uL (0.0-0.5); EOS % 1.2 % (0.0-3.0); HEMATOCRIT 31.2 % (42.0-52.0); HEMOGLOBIN 9.8 g/dl (13.5-17.5); LYMPH # 1.3 10^3/uL (1.5-5.0); LYMPH % 11.2 % (24.0-44.0); MEAN CORPUSCULAR HEMOGLOBIN 25.1 pg (27.0-33.0); MEAN CORPUSCULAR HGB CONC 31.4 g/dl (32.0-36.5); MONO # 0.9 10^3/uL (0.0-0.8); MONO % 7.7 % (2.0-8.0); NEUTROPHILS # 9.4 10^3/uL (1.5-8.5); NEUTROPHILS % 78.9 % (36.0-66.0); PLATELET COUNT, AUTOMATED 342 10^3/uL (150-450); WHITE BLOOD COUNT 11.9 10^3/uL (4.0-10.0)
[2023-04-29 06:32] LABS: ALBUMIN 2.3 G/DL (3.2-5.2); ALKALINE PHOSPHATASE 509 U/L (46-116); ALT/SGPT 67 U/L (7.0-40); AST/SGOT 127 U/L (<34); BILIRUBIN,TOTAL 0.3 MG/DL (0.3-1.2); BLOOD UREA NITROGEN 40 MG/DL (9-23); CALCIUM LEVEL 8.8 MG/DL (8.3-10.6); CARBON DIOXIDE LEVEL 28 MMOL/L (20-31); CHLORIDE LEVEL 106 MMOL/L (98-107); CREATININE FOR GFR 1.16 MG/DL (0.70-1.30); GLOMERULAR FILTRATION RATE > 60.0 (>35); GLUCOSE, FASTING 91 MG/DL (74-106); SODIUM LEVEL 140 MMOL/L (136-145); TOTAL PROTEIN 5.1 G/DL (5.7-8.2)
[2023-04-29 07:59] VITALS: BP 132/73; TEMP 98.6; O2SAT 96
[2023-04-29] MEDS ORDERED: HEPARIN SOD (PORCINE) 5000UNITS/ML 1ML VIAL/SYRINGE SC SCH (09:00)
[2023-04-29] MEDS: APIXABAN 5 MG TAB (ELIQUIS) PO SCH (09:22)
[2023-04-29] MEDS: SODIUM CHLORIDE NASAL 0.65% SPRAY BTL (OCEAN) SCH (09:22)
[2023-04-29] MEDS: ASPIRIN 81MG ENTERIC TABLET PO SCH (09:22)
[2023-04-29] MEDS: EZETIMIBE 10MG TABLET (ZETIA) PO SCH (09:22)
[2023-04-29] MEDS: predniSONE 5 MG TAB PO SCH (09:22)
[2023-04-29 09:23] VITALS: BP 132/73
[2023-04-29] MEDS: DONEPEZIL 5 MG TAB PO SCH (09:23)
[2023-04-29] MEDS: OMEPRAZOLE 20MG CAP PO SCH (09:23)
[2023-04-29 12:00] VITALS: BP 115/65; TEMP 98.9; O2SAT 98
[2023-04-29] MEDS ORDERED: SCOPOLAMINE 1MG TRANSDERMAL PATCH TOP PRN (12:00)
[2023-04-29] MEDS ORDERED: LORazepam 2 MG/ML 1ML VIAL IV PRN (12:00)
[2023-04-29] MEDS ORDERED: MORPHINE 2 MG/ML 1ML VIAL IV PRN (12:00)
[2023-04-29] MEDS ORDERED: cefTRIAXone SOD 1 GM in D5W MINI-BAG PLUS 50 ML IV SCH (20:00)
[2023-04-30] MEDS ORDERED: ATIV1TAB10 PO (10:52)
[2023-04-30] MEDS ORDERED: MORP1SOL5 PO (10:52)
[2023-04-30] MEDS ORDERED: HYOS125TA PO (10:52)
[2023-05-05] MEDS ORDERED: APIXABAN 5 MG TAB (ELIQUIS) PO SCH (21:00)
== END 2023-04-30 11:40 | DRG 683 ==
LOC: M ED 16:47 → M ED INP 21:28 → M PCU 22:43 → M MS5PR 04-29 23:10
PROVIDERS: ADMIT Family Medicine; ATTEND Internal Medicine
DX: N17.9 Acute kidney failure, unspecified (principal); C78.7 Secondary malignant neoplasm of liver and intrahepatic bile duct; E87.20 Acidosis, unspecified; C18.9 Malignant neoplasm of colon, unspecified; I82.432 Acute embolism and thrombosis of left popliteal vein; I82.412 Acute embolism and thrombosis of left femoral vein; R64 Cachexia; R44.0 Auditory hallucinations; Z68.1 Body mass index [BMI] 19.9 or less, adult; R65.10 Systemic inflammatory response syndrome (SIRS) of non-infectious origin without acute organ dysfunction; E46 Unspecified protein-calorie malnutrition; E21.1 Secondary hyperparathyroidism, not elsewhere classified; F01.50 Vascular dementia, unspecified severity, without behavioral disturbance, psychotic disturbance, mood disturbance, and anxiety; G70.00 Myasthenia gravis without (acute) exacerbation; N18.30 Chronic kidney disease, stage 3 unspecified; Z66 Do not resuscitate; I51.7 Cardiomegaly; I12.9 Hypertensive chronic kidney disease with stage 1 through stage 4 chronic kidney disease, or unspecified chronic kidney disease; N40.1 Benign prostatic hyperplasia with lower urinary tract symptoms; M79.605 Pain in left leg; E78.00 Pure hypercholesterolemia, unspecified; M19.011 Primary osteoarthritis, right shoulder; M47.816 Spondylosis without myelopathy or radiculopathy, lumbar region; R53.1 Weakness; E86.0 Dehydration; R62.7 Adult failure to thrive; R31.9 Hematuria, unspecified; M62.50 Muscle wasting and atrophy, not elsewhere classified, unspecified site; Z86.73 Personal history of transient ischemic attack (TIA), and cerebral infarction without residual deficits; Z86.718 Personal history of other venous thrombosis and embolism; Z98.41 Cataract extraction status, right eye; Z98.42 Cataract extraction status, left eye; Z79.899 Other long term (current) drug therapy; Z88.4 Allergy status to anesthetic agent; Z91.013 Allergy to seafood